=== PATIENT | male | born 1965 | race African-American/Black ===

== ENCOUNTER 2023-09-10 15:55 | Inpatient (IN) | payer MEDICARE ==
[2023-09-10] MEDS: NALOXONE 0.4 MG/ML 1 ML VIAL IVP STA (15:58)
[2023-09-10] MEDS: MIDAZOLAM 1 MG/ML 5 ML VIAL IV STA (16:01)
[2023-09-10] MEDS: SUCCINYLCHOLINE CHLORIDE 200 MG/10 ML VIAL IV STA (16:02)
[2023-09-10] MEDS: SODIUM CHLORIDE 0.9% 500 ML 500 ML IV STA (16:03)
[2023-09-10 16:12] LABS: Glucose,Whole Blood 297 mg/dL (70-110)
[2023-09-10] MEDS: LORazepam 2 MG/ML INJ IV STA ×3 (16:13→18:43)
--- NOTE | 2023-09-10 16:17 | ED ---
General Adult HPI - General Stated complaint: Cardiac Arrest Time Seen by Provider: 09/10/23 15:55 Source: patient, RN notes reviewed, old records reviewed - History of Present Illness Initial comments: This is a 58-year-old male who presents to the emergency department after having had a seizure [place] the court [place] he fell directly back and hit the back of his head at which point in time he was unconscious according to bystanders he had some blood coming out of his nose. Patient never regained consciousness when the fire department arrived he was having agonal respirations when EMS got there he was in asystole and they started CPR which lasted about 3 minutes and the patient regained a pulse and was again breathing agonal he they were bagging the patient on the way in but they did not intubate the patient. Patient was not giving any medication. - Related Data Home Medications Medication Instructions Recorded Confirmed Losartan/Hydrochlorothiazide 1 tab PO DAILY 09/10/23 09/10/23 [Losartan-Hctz 100-25 mg Tab] Lovastatin [Mevacor] 20 mg PO W/SUPPER 09/10/23 09/10/23 Pioglitazone [Actos] 15 mg PO DAILY 09/10/23 09/10/23 amLODIPine [Norvasc] 5 mg PO DAILY 09/10/23 09/10/23 metFORMIN HCL 1,000 mg PO BID 09/10/23 09/10/23 Allergies Allergy/AdvReac Type Severity Reaction Status Date / Time Penicillins Allergy Unknown Verified 09/10/23 17:21 Review of Systems ROS Statement: Those systems with pertinent positive or pertinent negative responses have been documented in the HPI. ROS Other: All systems not noted in ROS Statement are negative. General Exam - General Exam Comments Initial Comments: GENERAL: Patient is well-developed and well-nourished. Patient is unresponsive ENT: Neck is soft and supple. Oropharynx is clear. Moist mucous membranes. EYES: The sclera were anicteric and conjunctiva were pink and moist. Pupils are pinpoint. Patient is not spontaneously looking around PULMONARY: Patient has good breath sounds while being bagged CARDIOVASCULAR: There is a regular rate and rhythm without any murmurs gallops or rubs. ABDOMEN: No trauma obvious to the abdomen SKIN: Skin is clear with no lesions or rashes and otherwise unremarkable. NEUROLOGIC: Patient has a GCS of 3 MUSCULOSKELETAL: Patient is not moving any extremities spontaneously PSYCHIATRIC: Unable Course Vital Signs 09/10/23 09/10/23 09/10/23 15:58 16:05 16:20 Temperature 97.0 F L Pulse Rate [ 111 H Field Naturalist ] Respiratory 0 L 21 Rate Blood Pressure 184/108 [Right Arm Supine] O2 Sat by Pulse 88 L Oximetry Fraction of 100 Inspired Oxygen (FIO2) 09/10/23 09/10/23 16:40 17:15 Temperature Pulse Rate [ 104 H Field Naturalist ] Respiratory 26 H Rate Blood Pressure 147/81 [Right Arm Supine] O2 Sat by Pulse 98 Oximetry Fraction of 100 Inspired Oxygen (FIO2) Medical Decision Making - Medical Decision Making EKG is interpreted by myself but EKG shows sinus tachycardia at a rate of 100 bpm IA interval is 186 QRS 120 QT interval is 408 QTc is [address] segment elevation Was pt. sent in by a medical professional or institution ([facility], [facility], urgent care, hospital, or correction...) When possible be specific @ -No Did you speak to anyone other than the patient for history (EMS, parent, family, police, friend...)? What history was obtained from this source @ -EMS gave all of the history Did you review nursing and triage notes (agree or disagree)? Why? @ -I reviewed and agree with nursing and triage notes Were old charts reviewed (outside hosp., previous admission, EMS record, old EKG, old radiological studies, urgent care reports/EKG's, correction records)? Report findings @ -I reviewed prior charts and prior lab work and prior radiological studies on this patient Differential Diagnosis (chest pain, altered mental status, abdominal pain women, abdominal pain men, vaginal bleeding, weakness, fever, dyspnea, syncope, headache, dizziness, GI bleed, back pain, seizure, CVA, palpatations, mental health, musculoskeletal)? @ -Differential Seizure: Recurrent seizure disorder, febrile seizure, alcohol withdrawal, stimulants, meningitis, encephalitis, intercranial hemorrhage, intracranial tumor, stroke, eclampsia, thyrotoxicosis, hypocalcemia, hyponatremia, hypernatremia, hypomagnesemia, psychogenic, this is not meant to be an all-inclusive list. EKG interpreted by me (3pts min.). @ -As above X-rays interpreted by me (1pt min.). @ -Chest x-ray and pelvic x-ray showed no acute abnormality CT interpreted by me (1pt min.). 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 Patient had no acute injury. CT cervical spine showed no acute injury U/S interpreted by me (1pt. min.). @ -None done What testing was considered but not performed or refused? (CT, X-rays, U/S, labs)? Why? @ -None What meds were considered but not given or refused? Why? @ -None Did you discuss the management of the patient with other professionals (professionals i.e. DrStephanie, PA, HE[employer] [facility]MER, lab, RT, psych nurse, forensic social worker, associate director regulatory affairs, teacher, court security officer, caseworker)? Give summary @ -Dr. Jacinto came down and saw the patient in the emergency department and cleared the patient from a trauma perspective as long as the CT of the brain and C-spine were negative. I did consult Dary Samaniego he refused the patient as a trauma because it was no significant external trauma and there was no trauma seen on the CAT scan or C-spine. I called back Dr. Jacinto at this point and he agreed that the patient was not a trauma patient and he would sign off on the patient. I spoke with Dr. Rivera he was going to except the patient to the ICU. I spoke with Dr. Fairchild and he agreed admit the patient. I spoke with Dr. Farris the neurologist and he agreed to see the patient. Was smoking cessation discussed for >3mins.? @ -No Was critical care preformed (if so, how long)? @ -60 minutes Were there social determinants of health that impacted care today? How? (Homelessness, low income, unemployed, alcoholism, drug addiction, transportation, low edu. Level, literacy, decrease access to med. care, prison, rehab)? @ -No Was there de-escalation of care discussed even if they declined (Discuss DNR or withdrawal of care, Hospice)? DNR status @ -No What co-morbidities impacted this encounter? (DM, HTN, Smoking, COPD, CAD, Cancer, CVA, ARF, Chemo, Hep., AIDS, mental health diagnosis, sleep apnea, morbid obesity)? @ -None Was patient admitted / discharged? Hospital course, mention meds given and route, prescriptions, significant lab abnormalities, going to OR and other pertinent info. @ -Patient came in he had a GCS of 3 he had good pulses he was only having agonal respirations and needed respiratory assistance with bagging. At that point in time anesthesia did intubate the patient. Patient had a CAT scan which was discussed above. Patient was then placed on propofol because he was fighting the vent a little bit. Patient also was given a total of 4 mg prior to that because of agitation. Patient also was given 1500 of Keppra. Undiagnosed new problem with uncertain prognosis? @ -No Drug Therapy requiring intensive monitoring for toxicity (Heparin, Nitro, Insulin, Cardizem)? @ -No Were any procedures done? @ -No Diagnosis/symptom? @ -Seizure Acute, or Chronic, or Acute on Chronic? @ -Acute Uncomplicated (without systemic symptoms) or Complicated (systemic symptoms)? @ -Complicated Side effects of treatment? @ -No Exacerbation, Progression, or Severe Exacerbation? @ -No Poses a threat to life or bodily function? How? (Chest pain, [place], [place], pneumonia, PE, COPD, DKA, ARF, appy, cholecystitis, CVA, Diverticulitis, Homicidal, Suicidal, threat to staff... and all critical care pts) @ -Yes this could lead to further neurologic deficit Diagnosis/symptom? @ -Cardiac arrest Acute, or Chronic, or Acute on Chronic? @ -Acute Uncomplicated (without systemic symptoms) or Complicated (systemic symptoms)? @ -Complicated Side effects of treatment? @ -None Exacerbation, Progression, or Severe Exacerbation] @ -No Poses a threat to life or bodily function? @ -Yes this could lead to significant heart damage and endorgan dysfunction Diagnosis/symptom? @ -Head injury Acute, or Chronic, or Acute on Chronic? @ -Acute Uncomplicated (without systemic symptoms) or Complicated (systemic symptoms)? @ -Complicated Side effects of treatment? @ -None Exacerbation, Progression, or Severe Exacerbation] @ -No Poses a threat to life or bodily function? @ -No - Lab Data Result diagrams: 09/10/23 16:03 09/10/23 16:03 Lab Results 09/10/23 09/10/23 09/10/23 Range/Units 16:03 16:03 16:03 WBC 16.8 H (3.8-10.6) k/uL RBC 6.27 H (4.30-5.90) m/uL Hgb 15.9 (13.0-17.5) gm/dL Hct 50.3 (39.0-53.0) % MCV 80.2 (80.0-100.0) fL MCH 25.5 (25.0-35.0) pg MCHC 31.7 (31.0-37.0) g/dL RDW 14.5 (11.5-15.5) % Plt Count 454 H (150-450) k/uL MPV 7.2 Neutrophils % [employer] Neutrophils % (Manual) 27 % Lymphocytes % [employer]MER Lymphocytes % (Manual) 64 % Monocytes % HE[employer]MER Monocytes % (Manual) 9 % Eosinophils % HE[employer]UMMER Basophils % HEEL GUMMER Neutrophils # HEEL GUMMER Neutrophils # (Manual) 4.54 (1.3-7.7) k/uL Lymphocytes # HEEL GUMMER Lymphocytes # (Manual) 10.75 H (1.0-4.8) k/uL Monocytes # HE[employer]UMMER Monocytes # (Manual) 1.51 H (0-1.0) k/uL Eosinophils # HE[employer]MER Basophils # [employer] Nucleated RBCs 0 (0-0) /100 WBC Manual Slide Review Performed Hypochromasia Slight PT 10.3 (10.0-12.5) sec INR 0.9 (<1.2) APTT 24.6 (22.0-30.0) sec Sodium 140 (137-145) mmol/L Potassium 4.3 (3.5-5.1) mmol/L Chloride 103 (98-107) mmol/L Carbon Dioxide 21 L (22-30) mmol/L Anion Gap 16 mmol/L BUN 15 (9-20) mg/dL Creatinine 1.07 (0.66-1.25) mg/dL Est GFR (CKD-EPI)AfAm 89 (>60 ml/min/1.73 sqM) Est GFR (CKD-EPI)NonAf 77 (>60 ml/min/1.73 sqM) Glucose 325 H (74-99) mg/dL POC Glucose (mg/dL) (70-110) mg/dL POC Glu [employer]s Analyst ID Plasma Lactic Acid Case (0.7-2.0) mmol/L Calcium 9.5 (8.4-10.2) mg/dL Total Bilirubin 0.9 (0.2-1.3) mg/dL AST 580 H (17-59) U/L ALT 589 H (4-49) U/L Alkaline Phosphatase 94 (38-126) U/L Troponin I (0.000-0.034) ng/mL Total Protein 8.5 H (6.3-8.2) g/dL Albumin 5.0 (3.5-5.0) g/dL Urine Opiates Screen (NotDetected) Ur Oxycodone Screen (NotDetected) Urine Methadone Screen (NotDetected) Ur Barbiturates Screen (NotDetected) U Tricyclic Antidepress (NotDetected) Ur Phencyclidine Scrn (NotDetected) Ur Amphetamines Screen (NotDetected) U Methamphetamines Scrn (NotDetected) U Benzodiazepines Scrn (NotDetected) Urine Cocaine Screen (NotDetected) U Marijuana (THC) Screen (NotDetected) Serum Alcohol <10 mg/dL Blood Type Blood Type Recheck Bld Type Recheck Status Antibody Screen Spec Expiration Date 09/10/23 09/10/23 09/10/23 Range/Units 16:03 16:03 16:03 WBC (3.8-10.6) k/uL RBC (4.30-5.90) m/uL Hgb (13.0-17.5) gm/dL Hct (39.0-53.0) % MCV (80.0-100.0) fL MCH (25.0-35.0) pg MCHC (31.0-37.0) g/dL RDW (11.5-15.5) % Plt Count (150-450) k/uL MPV Neutrophils % Neutrophils % (Manual) % Lymphocytes % Lymphocytes % (Manual) % Monocytes % Monocytes % (Manual) % Eosinophils % Basophils % Neutrophils # Neutrophils # (Manual) (1.3-7.7) k/uL Lymphocytes # Lymphocytes # (Manual) (1.0-4.8) k/uL Monocytes # Monocytes # (Manual) (0-1.0) k/uL Eosinophils # Basophils # Nucleated RBCs (0-0) /100 WBC Manual Slide Review Hypochromasia PT (10.0-12.5) sec INR (<1.2) APTT (22.0-30.0) sec Sodium (137-145) mmol/L Potassium (3.5-5.1) mmol/L Chloride (98-107) mmol/L Carbon Dioxide (22-30) mmol/L Anion Gap mmol/L BUN (9-20) mg/dL Creatinine (0.66-1.25) mg/dL Est GFR (CKD-EPI)AfAm (>60 ml/min/1.73 sqM) Est GFR (CKD-EPI)NonAf (>60 ml/min/1.73 sqM) Glucose (74-99) mg/dL POC Glucose (mg/dL) (70-110) mg/dL POC Glu Sales Contracts Analyst ID Plasma Lactic Acid Case 6.1 H* (0.7-2.0) mmol/L Calcium (8.4-10.2) mg/dL Total Bilirubin (0.2-1.3) mg/dL AST (17-59) U/L ALT (4-49) U/L Alkaline Phosphatase (38-126) U/L Troponin I 0.024 (0.000-0.034) ng/mL Total Protein (6.3-8.2) g/dL Albumin (3.5-5.0) g/dL Urine Opiates Screen (NotDetected) Ur Oxycodone Screen (NotDetected) Urine Methadone Screen (NotDetected) Ur Barbiturates Screen (NotDetected) U Tricyclic Antidepress (NotDetected) Ur Phencyclidine Scrn (NotDetected) Ur Amphetamines Screen (NotDetected) U Methamphetamines Scrn (NotDetected) U Benzodiazepines Scrn (NotDetected) Urine Cocaine Screen (NotDetected) U Marijuana (THC) Screen (NotDetected) Serum Alcohol mg/dL Blood Type O Positive Blood Type Recheck No Previous Record Bld Type Recheck Status CABO Indicated Antibody Screen NEGATIVE Spec Expiration Date 09/13/2023 - 230209/10/23 09/10/23 Range/Units 16:09 16:11 WBC (3.8-10.6) k/uL RBC (4.30-5.90) m/uL Hgb (13.0-17.5) gm/dL Hct (39.0-53.0) % MCV (80.0-100.0) fL MCH (25.0-35.0) pg MCHC (31.0-37.0) g/dL RDW (11.5-15.5) % Plt Count (150-450) k/uL MPV Neutrophils % Neutrophils % (Manual) % Lymphocytes % Lymphocytes % (Manual) % Monocytes % Monocytes % (Manual) % Eosinophils % Basophils % Neutrophils # Neutrophils # (Manual) (1.3-7.7) k/uL Lymphocytes # Lymphocytes # (Manual) (1.0-4.8) k/uL Monocytes # Monocytes # (Manual) (0-1.0) k/uL Eosinophils # Basophils # Nucleated RBCs (0-0) /100 WBC Manual Slide Review Hypochromasia PT (10.0-12.5) sec INR (<1.2) APTT (22.0-30.0) sec Sodium (137-145) mmol/L Potassium (3.5-5.1) mmol/L Chloride (98-107) mmol/L Carbon Dioxide (22-30) mmol/L Anion Gap mmol/L BUN (9-20) mg/dL Creatinine (0.66-1.25) mg/dL Est GFR (CKD-EPI)AfAm (>60 ml/min/1.73 sqM) Est GFR (CKD-EPI)NonAf (>60 ml/min/1.73 sqM) Glucose (74-99) mg/dL POC Glucose (mg/dL) 297 H (70-110) mg/dL POC Glu Sales Contracts Analyst ID [place], Unique Plasma Lactic Acid Case (0.7-2.0) mmol/L Calcium (8.4-10.2) mg/dL Total Bilirubin (0.2-1.3) mg/dL AST (17-59) U/L ALT (4-49) U/L Alkaline Phosphatase (38-126) U/L Troponin I (0.000-0.034) ng/mL Total Protein (6.3-8.2) g/dL Albumin (3.5-5.0) g/dL Urine Opiates Screen Not Detected (NotDetected) Ur Oxycodone Screen Not Detected (NotDetected) Urine Methadone Screen Not Detected (NotDetected) Ur Barbiturates Screen Not Detected (NotDetected) U Tricyclic Antidepress Not Detected (NotDetected) Ur Phencyclidine Scrn Not Detected (NotDetected) Ur Amphetamines Screen Not Detected (NotDetected) U Methamphetamines Scrn Not Detected (NotDetected) U Benzodiazepines Scrn Not Detected (NotDetected) Urine Cocaine Screen Not Detected (NotDetected) U Marijuana (THC) Screen Detected H (NotDetected) Serum Alcohol mg/dL Blood Type Blood Type Recheck Bld Type Recheck Status Antibody Screen Spec Expiration Date Critical Care Time Critical Care Time: Yes Total Critical Care Time: 60 Disposition Clinical Impression: Seizure, Head injury, Cardiac arrest Disposition: ADMITTED IP TO THIS HOSP Referrals: Cale Fairchild MD [Primary Care Provider] - 1-2 days Time of Disposition: 17:45
[2023-09-10] MEDS: PROPOFOL 10 MG/ML 20 ML VIAL IV STA (16:18)
--- NOTE | 2023-09-10 16:24 | XR ---
EXAMINATION TYPE: XR chest 1V portable DATE OF EXAM: 09/10/2023 HISTORY: Shortness of breath. COMPARISON: None. TECHNIQUE: Single view of the chest is submitted. FINDINGS: Endotracheal tube is 3.1 cm from the mandy. NG tube is seen coursing into the stomach. Focal infiltrate left upper lobe. The heart is stable. Hilar and mediastinal structures are within normal limits. Degenerative changes are seen of the dorsal spine. IMPRESSION: 1. Indwelling tubes and catheters as noted. 2. Focal infiltrate left upper lobe.
--- NOTE | 2023-09-10 16:25 | XR ---
EXAMINATION TYPE: XR pelvis AP view DATE OF EXAM: 09/10/2023 CLINICAL HISTORY: pain TECHNIQUE: Single view the pelvis is submitted. FINDINGS: No evidence for fracture, dislocation or bony lesion. Joint spaces are well-preserved. S I joints appear symmetric. IMPRESSION: 1. No acute fracture or dislocation seen. ICD 10 NO FRACTURE, INITIAL EVALUATION
[2023-09-10 16:27] LABS: HCT 50.3 % (39.0-53.0); HGB 15.9 gm/dL (13.0-17.5); Hypochromasia Slight; MCH 25.5 pg (25.0-35.0); MCHC 31.7 g/dL (31.0-37.0); MCV 80.2 fL (80.0-100.0); Mean Platelet Volume 7.2; Platelet Count 454 k/uL (150-450); RBC 6.27 m/uL (4.30-5.90); RDW 14.5 % (11.5-15.5); WBC 16.8 k/uL (3.8-10.6)
[2023-09-10 16:35] LABS: ALT 589 U/L (4-49); African American GFR (CKD) 89 (>60 ml/min/1.73 sqM); Alcohol <10 mg/dL; Anion Gap 16 mmol/L; Blood Urea Nitrogen 15 mg/dL (9-20); Calcium 9.5 mg/dL (8.4-10.2); Carbon Dioxide 21 mmol/L (22-30); Chloride 103 mmol/L (98-107); Glucose 325 mg/dL (74-99); Non-African American GFR(CKD) 77 (>60 ml/min/1.73 sqM); Sodium 140 mmol/L (137-145); Total Bilirubin 0.9 mg/dL (0.2-1.3)
[2023-09-10 16:37] LABS: INR 0.9 (<1.2); Partial Thromboplastin Time 24.6 sec (22.0-30.0); Prothrombin Time 10.3 sec (10.0-12.5)
[2023-09-10 16:40] LABS: Amphetamine Screen,Urine Not Detected (NotDetected); Barbiturate Screen,Urine Not Detected (NotDetected); Benzodiazepines Screen,Urine Not Detected (NotDetected); Cocaine Screen,Urine Not Detected (NotDetected); Methadone Screen, Urine Not Detected (NotDetected); Opiate Screen,Urine Not Detected (NotDetected); Oxycodone Screen, Urine Not Detected (NotDetected); Phencyclidine Screen,Urine Not Detected (NotDetected); Tricyclic Antidepressant,Urine Not Detected (NotDetected); Urn Cannabinoid Scrn Detected (NotDetected)
[2023-09-10 16:48] LABS: Lymphocytes # (M) 10.75 k/uL (1.0-4.8); Monocytes # (M) 1.51 k/uL (0-1.0); Neutrophils # (M) 4.54 k/uL (1.3-7.7); Neutrophils % (M) 27 %; Nucleated Red Blood Cells 0 /100 WBC (0-0); Potassium 4.3 mmol/L (3.5-5.1); Total Cells Counted 100
[2023-09-10 16:49] LABS: AST 580 U/L (17-59); Alkaline Phosphatase 94 U/L (38-126); Total Protein 8.5 g/dL (6.3-8.2)
--- NOTE | 2023-09-10 16:52 | CT ---
EXAMINATION TYPE: CT brain cspine wo con CT DLP: 1753.2 mGycm, Automated exposure control for dose reduction was used. DATE OF EXAM: 09/10/2023 4:40 PM COMPARISON: None CLINICAL INDICATION:Male, 58 years old with history of trauma; Pt had a seizure and then went unconsc ious. TECHNIQUE: Brain: Multiple axial CT images of the brain were obtained without IV contrast. Cspine: Axial CT images from the skull base to the inferior aspect of T2 we obtained without intraven ous contrast. Coronal and sagittal reformatted images were also reviewed. FINDINGS: Brain: Extra-axial spaces: No abnormal extra-axial fluid collections. Falx lipoma anteriorly. Ventricular system: Within normal limits Cerebral parenchyma: Encephalomalacia the right frontal lobe. No acute intraparenchymal hemorrhage or mass effect. The warren-white junction is well differentiated. Metallic clip near the suprasellar spa ce Cerebellum: Unremarkable. Mass effect: No evidence of midline shift. Intracranial vasculature: unremarkable Soft tissues: Calcifications are seen within the floor the mouth measuring up to 26 x 13 mm. Subcutan eous changes edema along the superior skull. Calvarium/osseous structures: No depressed skull fracture. Paranasal sinuses and mastoid air cells: Paranasal sinus mucosal thickening within the nasal cavity. Visualized orbits: Orbital contents are intact. Cervical spine: Fracture: None. Osseous structures: Multilevel degenerative disc disease changes with endplate spurring and disc oste ophyte complex's. Vertebral alignment: Within normal limits. Spinal canal/Neural Foramina: No evidence of significant spinal canal narrowing. No evidence for sign ificant neural foraminal stenosis. Neck soft tissues: Prevertebral soft tissues are within normal limits. Other: The airway is patent. Airspace opacities in the lung apices are present. Endotracheal tube and nasogastric tube partially visualized. IMPRESSION: 1. No acute intracranial process. 2. Subcutaneous edema near the skull vertex without evidence of fracture. 3. Encephalomalacia the right frontal lobe possibly secondary to surgical intervention given metalli c density in the suprasellar space. 4. No evidence of cervical spine fracture. 5. Mild multilevel degenerative disc disease. 6. Multiple right calcified stones within the floor the mouth compatible with sialolithiasis. 7. Bilateral airspace opacities partially visualized in the upper lung, correlate for pneumonia/ asp iration versus pulmonary edema versus other. 8. Endotracheal nasogastric tubes in place.
[2023-09-10] MEDS: levETIRAcetam IV 500 MG/5 ML VIAL IVP STA (17:05)
[2023-09-10 17:29] LABS: ABG Base Excess -0.8 mmol/L; ABG HCO3 25 mmol/L (21-25); ABG Oxygen Saturation 93.9 % (94-97); ABG PCO2 45 mmHg (35-45); ABG PH 7.35 (7.35-7.45); ABG PO2 79 mmHg (83-108); ABG TCO2 26 mmol/L (19-24); Allen Test Performed? Yes
[2023-09-10] MEDS ORDERED: NALOXONE 0.4 MG/ML 1 ML VIAL IV PRN (17:45)
[2023-09-10] MEDS: FUROSEMIDE 10 MG/ML 4 ML VIAL IV STA (18:45)
--- NOTE | 2023-09-10 19:04 | XR ---
EXAMINATION TYPE: XR chest 1V portable DATE OF EXAM: 09/10/2023 6:50 PM CLINICAL INDICATION:Male, 58 years old with history of Short of breath; [facility] COMPARISON: Same day TECHNIQUE: XR chest 1V portable Frontal view of the chest. FINDINGS: Lungs/Pleura: Improved aeration of lungs on today's exam with persistent airspace opacities scattered throughout the left upper lung. No evidence of pneumothorax or large pleural effusion. Pulmonary vascularity: Unremarkable. Heart/mediastinum: Cardiomediastinal silhouette is enlarged and stable. Musculoskeletal: No acute osseous pathology. Other findings: None Lines/Tubes: Endotracheal tube with distal tip 5.4 cm above the mandy. Nasogastric tube with its distal tip and side-port projecting under the diaphragm. Left internal jugular central venous catheter with distal tip at the cavoatrial junction. IMPRESSION: 1. Improved aeration of the right medial upper lung and left upper lung. 2. Support tubes and left line in appropriate position.
[2023-09-10] MEDS: LORazepam 2 MG/ML INJ IM STA (19:07)
[2023-09-10 20:31] LABS: Glucose,Whole Blood 255 mg/dL (70-110)
--- NOTE | 2023-09-10 20:45 | P.CNPUL ---
History of Present Illness Consult date: 09/10/23 Chief complaint: Seizure, cardiac arrest History of present illness: This is a 58-year-old male patient was brought in to the emergency department following a cardiac arrest. The patient was in the court house and he was noted to have an acute seizure, tonic-clonic in nature that lasted for around 2 to 3 minutes, during which, the patient had stool and urinary incontinence. The patient dropped and hit the back of his head and went unconscious. Subsequently, he was found unconscious and the fire department arrived to the scene and the patient was having agonal breathing and apparently was in asystole. The patient was given CPR for total of 3 minutes and he regained spontaneous circulation. His breathing was still agonal and he was being bagged on the way to the emergency department. In the ED, the patient was intubated immediately. The patient was placed on a mechanical ventilator. The postintubation chest x-ray showed right upper lobe atelectatic changes and ET tube was repositioned. The patient also had cardiomegaly and increased pulm vascular markings bilaterally. CAT scan of the head was done in addition to the CT scan of the cervical spine. The patient was found to have no acute intracranial process. There was some subcutaneous edema near the skull vertex without evidence of any fracture. There was encephalomalacia involving the frontal lobe related to previous surgery given the metallic density that was found in the suprasellar space. Patient had no evidence of any cervical fracture. No evidence of any hemorrhage or mass effect on the warren-white junction was well-differentiated. A metallic clip was seen as mentioned. The upper part of the lung showed bilateral airspace disease consistent with p ulmonary edema. I arrived to evaluate this patient in the emergency department. He was placed on propofol and is running at 55 mcg of volume psych: Mechanical ventilation. He was having abdominal bleeding and he was quite tachypneic. I switched him to pressure control mode and currently is on a pressure control of 25 with a PEEP of 5 and FiO2 of 100% in the rate of 20. Triple-lumen catheter was established in his left IJ. The post line insertion chest x-ray shows no evidence of any complications. No evidence of any pneumothorax. The patient remained hemodynamically stable. No further seizure activity has been noted. He was given IV Keppra in the emergency department and a total of 1.5 g of IV Keppra piggyback was given. No fever. No neck stiffness. WBC count is 16.8 with a hemoglobin of 15.9 and a platelet count of 454. BUN is at 15 with a creatinine of 1.07. Electrolytes are normal. Blood sugars at 325. As for the rest of the labs, the urine drug screen is positive for marijuana, negative for alcohol. Lactic acid level was at 6.1. AST is 580, ALT is 589 with a normal bilirubin and normal alkaline phosphatase. For set of troponin is at 0.024. He was given a dose of Lasix in the emergency department. 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 No reported seizure activity at least recently and the patient has been taking no antiepileptic medication. The patient has hypertension hyperlipidemia and diabetes mellitus maintained on oral medications. No further history is available at this point in time. No history of any cardiac disease. 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, aneurysm Medications and Allergies Home Medications Medication Instructions Recorded Confirmed Type Losartan/Hydrochlorothiazide 1 tab PO DAILY 09/10/23 09/10/23 History [Losartan-Hctz 100-25 mg Tab] Lovastatin [Mevacor] 20 mg PO W/SUPPER 09/10/23 09/10/23 History Pioglitazone [Actos] 15 mg PO DAILY 09/10/23 09/10/23 History amLODIPine [Norvasc] 5 mg PO DAILY 09/10/23 09/10/23 History metFORMIN HCL 1,000 mg PO BID 09/10/23 09/10/23 History Allergies Allergy/AdvReac Type Severity Reaction Status Date / Time No Known Allergies Allergy Verified 09/10/23 17:47 Physical Exam Vitals: Vital Signs Temp Pulse Pulse Resp BP BP Pulse Ox 09/10/23 19:37 09/10/23 19:00 100 22 128/72 100 09/10/23 18:37 09/10/23 18:30 97.7 F 115 H 24 157/110 100 09/10/23 18:00 97.7 F 116 H 33 H 177/83 100 09/10/23 17:45 97.7 F 117 H 30 H 167/82 99 09/10/23 17:30 97.7 F 106 H 26 H 148/89 96 09/10/23 17:15 97.6 F 104 H 104 H 22 147/81 147/81 98 09/10/23 17:00 97.4 F L 101 H 28 H 139/96 96 09/10/23 16:45 97.2 F L 102 H 22 111/73 93 L 09/10/23 16:40 09/10/23 16:30 97.1 F L 109 H 17 128/81 88 L 09/10/23 16:20 97.0 F L 111 H 21 184/108 88 L 09/10/23 16:15 97.0 F L 111 H 18 184/108 88 L 09/10/23 16:09 97.0 F L 122 H 17 209/126 83 L 09/10/23 16:05 09/10/23 15:58 0 L 09/10/23 15:55 97.0 F L 129 H 11 L 243/165 88 L FiO2 09/10/23 19:37 100 09/10/23 19:00 09/10/23 18:37 100 09/10/23 18:30 09/10/23 18:00 09/10/23 17:45 09/10/23 17:30 09/10/23 17:15 09/10/23 17:00 09/10/23 16:45 09/10/23 16:40 100 09/10/23 16:30 09/10/23 16:20 09/10/23 16:15 09/10/23 16:09 09/10/23 16:05 100 09/10/23 15:58 09/10/23 15:55 Intake and Output 09/10/23 09/10/23 09/10/23 06:59 14:59 22:59 Intake Total 65.986 Balance 65.986 Intake: Intake, IV Titration 65.986 Amount propofoL 1,000 mg In 65.986 Empty Bag 1 bag @ 15 MCG/ KG/MIN 9.594 mls/hr IV . [id number] [facility] Rx#:[id number] Other: Weight 106.594 kg General appearance the patient is calm comfortable, no acute distress Intubated on mechanical ventilator. Orogastric and orotracheal tube is in place. No obvious seizure activity noted. Head exam was generally normal. There was no scleral icterus or corneal arcus. Mucous membranes were moist. Neck was supple and without jugular venous distension, thyromegaly, or carotid bruits. Carotids were easily palpable bilaterally. There was no adenopathy. Lungs were clear to auscultation and percussion, and with normal diaphragmatic excursion. No wheezes or rales were noted. Cardiac exam revealed the PMI to be normally situated and sized. The rhythm was regular and no extrasystoles were noted during several minutes of auscultation. The first and second heart sounds were normal and physiologic splitting of the second heart sound was noted. There were no murmurs, rubs, clicks, or gallops. Abdominal exam revealed normal bowel sounds. The abdomen was soft, non-tender, and without masses, organomegaly, or appreciable enlargement of the abdominal aorta. Examination of the extremities revealed easily palpable radial, femoral and pedal pulses. There was no cyanosis, clubbing or edema. Examination of the skin revealed no evidence of significant rashes, suspicious appearing nevi or other concerning lesions. Neurologically, the patient is sedated, pupils are equal reactive to light around 3 mm in size. No nystagmus. No facial asymmetry. Positive cough and gag. Sensorimotor function cannot be assessed. No Babinski. No clonus. Results - Laboratory Findings CBC and BMP: 09/10/23 16:09/10/23 16:03 ABG ABG pH 7.35 (7.35-7.45) 09/10/23 17:26 ABG pCO2 45 mmHg (35-45) 09/10/23 17:26 ABG pO2 79 mmHg (83-108) L 09/10/23 17:26 ABG O2 Saturation 93.9 % (94-97) L 09/10/23 17:26 PT/INR, D-dimer PT 10.3 sec (10.0-12.5) 09/10/23 16:03 INR 0.9 (<1.2) 09/10/23 16:03 Abnormal lab findings: Abnormal Labs 09/10/23 09/10/23 09/10/23 16:03 16:03 16:03 WBC 16.8 H RBC 6.27 H Plt Count 454 H Lymphocytes # (Manual) 10.75 H Monocytes # (Manual) 1.51 H ABG pO2 ABG Total CO2 ABG O2 Saturation Carbon Dioxide 21 L Glucose 325 H POC Glucose (mg/dL) Plasma Lactic Acid Case 6.1 H* AST 580 H ALT 589 H Total Protein 8.5 H U Marijuana (THC) Screen 09/10/23 09/10/23 09/10/23 16:09 16:11 17:26 WBC RBC Plt Count Lymphocytes # (Manual) Monocytes # (Manual) ABG pO2 79 L ABG Total CO2 26 H ABG O2 Saturation 93.9 L Carbon Dioxide Glucose POC Glucose (mg/dL) 297 H Plasma Lactic Acid Case AST ALT Total Protein U Marijuana (THC) Screen Detected H - Diagnostic Findings Chest x-ray: image reviewed Assessment and Plan Plan: New onset seizures, witnessed, lasted for few minutes and the seizure spontaneously aborted. The patient started on IV Keppra in the emergency department. 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 Obesity with a BMI of 32 Diabetes mellitus type 2 Hypertension Hyperlipidemia Plan Keep the patient sedated on propofol Continue IV Keppra Ativan on as-needed basis for agitation and or seizure activity EEG of the brain in the morning No ongoing clinical seizure activity Neurology consultation Continue ventilator support and keep the patient on pressure control mode of mechanical ventilation Wean FiO2 as tolerated to maintain saturation above 90% IV Lasix 40 mg every 24 hours Echocardiogram in the morning Precedex drip for tighter blood pressure control NovoLog insulin for sliding scale coverage and blood sugar control Heparin subcu for DVT prophylaxis Will continue to follow. Condition is critical. Will try to obtain more information from the family members once they arrived to the hospital. Time with Patient: Greater than 30
[2023-09-10] MEDS ORDERED: DEXTROSE 50% SYRINGE 50 ML IVP PRN ×2 (20:51)
[2023-09-10] MEDS: CLEVIDIPINE BUTYRATE 25 MG in EMPTY BAG 1 BAG IV SCH (21:00)
--- NOTE | 2023-09-10 21:02 | P.PCN ---
Date of Procedure: 09/10/23 Preoperative Diagnosis: Cardiac arrest Postoperative Diagnosis: cardiac arrest Procedure(s) Performed: central line, left IJ Anesthesia: local Surgeon: Magaly Rivera Estimated Blood Loss (ml): 0 Pathology: other Condition: critical Disposition: ICU Operative Findings: PROCEDURE SUMMARY: The [facility] [place] Central Line Insertion Practices form was completed by an independent observer starting with the first handwash prior to starting sterile technique. A time out was performed. My hands were washed immediately prior to the procedure. I wore a surgical cap, mask with protective eyewear, full gown and sterile gloves throughout the procedure. The patient was placed in Trendelen dar position. LEFT neck chest region was prepped using chlorhexidine scrub and draped in sterile fashion using a full drape and sterile probe cover and sterile gel employed. The medial and lateral heads of the sternocleidomastoid muscle were identified as was the carotid pulse. . Anesthesia was achieved over the vein using 1% lidocaine. The introducer needle was inserted into the Internal Jugular vein. Venous blood was withdrawn. The syringe was removed and a guidewire was advanced into the introducer needle. A small incision was made at the skin surface with a scalpel and the introducer needle was exchanged for a dilator over the guidewire. After appropriate dilation was obtained, the dilator was exchanged over the wire for a central venous catheter. A sterile sorbaview shield was placed over the catheter at the insertion site. The patient tolerated the procedure without any hemodynamic compromise. At time of procedure completion, all ports aspirated and flushed properly. Post-procedure chest x-ray is pending at this time. Estimated blood loss is 2-3 cc's.
[2023-09-10] MEDS: PANTOPRAZOLE 40 MG/10 ML VIAL IVP SCH (21:14)
[2023-09-10] MEDS: levETIRAcetam IV 500 MG/5 ML VIAL IVP SCH (21:14)
[2023-09-11 00:01] LABS: Glucose,Whole Blood 296 mg/dL (70-110)
[2023-09-11] MEDS ORDERED: DEXTROSE 50% SYRINGE 50 ML IVP PRN (00:53)
[2023-09-11] MEDS: HEPARIN SODIUM,PORCINE 5,000 UNIT/ML 1 ML VIAL SQ SCH (00:53)
[2023-09-11] MEDS: INSULIN ASPART (NovoLOG) 100 UNIT/ML VIAL SQ SCH (01:34)
[2023-09-11 04:39] LABS: Basophils % (A) 0 %; Eosinophils # (A) 0.1 k/uL (0-0.7); Eosinophils % (A) 1 %; HCT 41.9 % (39.0-53.0); HGB 13.5 gm/dL (13.0-17.5); Lymphocytes # (A) 1.7 k/uL (1.0-4.8); Lymphocytes % (A) 15 %; MCH 24.7 pg (25.0-35.0); MCHC 32.1 g/dL (31.0-37.0); Mean Platelet Volume 8.5; Monocytes # (A) 0.5 k/uL (0-1.0); Monocytes % (A) 5 %; Neutrophils # (A) 9.1 k/uL (1.3-7.7); Neutrophils % (A) 79 %; Platelet Count 333 k/uL (150-450); RBC 5.45 m/uL (4.30-5.90); RDW 14.5 % (11.5-15.5); WBC 11.5 k/uL (3.8-10.6)
[2023-09-11 04:56] LABS: ALT 366 U/L (4-49); AST 294 U/L (17-59); African American GFR (CKD) 79 (>60 ml/min/1.73 sqM); Albumin 3.7 g/dL (3.5-5.0); Alkaline Phosphatase 87 U/L (38-126); Anion Gap 11 mmol/L; Blood Urea Nitrogen 18 mg/dL (9-20); Calcium 9.1 mg/dL (8.4-10.2); Carbon Dioxide 21 mmol/L (22-30); Chloride 105 mmol/L (98-107); Glucose 222 mg/dL (74-99); Non-African American GFR(CKD) 68 (>60 ml/min/1.73 sqM); Potassium 3.3 mmol/L (3.5-5.1); Sodium 137 mmol/L (137-145); Total Bilirubin 0.7 mg/dL (0.2-1.3); Total Protein 6.5 g/dL (6.3-8.2)
[2023-09-11 05:08] LABS: Glucose,Whole Blood 216 mg/dL (70-110)
[2023-09-11] MEDS: FUROSEMIDE 10 MG/ML 4 ML VIAL IV SCH (05:13)
[2023-09-11] MEDS ORDERED: Potassium Replacement Protocol 1 EACH MISC MISCELLANE PRN (05:20)
[2023-09-11] MEDS ORDERED: Magnesium Replacement Protocol 1 EACH MISC MISCELLANE PRN (05:20)
[2023-09-11] MEDS: MAGNESIUM SULFATE-D5W PMX 1 GM in DEXTROSE/WATER 1 100ML.BAG IVPB SCH (05:59)
[2023-09-11] MEDS: POTASSIUM CHLORIDE 20 MEQ in WATER FOR INJECTION 1 100ML.BAG IVPB SCH (05:59)
[2023-09-11 06:07] LABS: ABG Base Excess 3.4 mmol/L; ABG HCO3 25 mmol/L (21-25); ABG Oxygen Saturation 98.3 % (94-97); ABG PCO2 24 mmHg (35-45); ABG PO2 305 mmHg (83-108); ABG TCO2 25 mmol/L (19-24)
[2023-09-11 06:11] LABS: ABG PH 7.63 (7.35-7.45)
--- NOTE | 2023-09-11 07:35 | P.CNNES ---
History of Present Illness Consult date: 09/10/23 Requesting physician: Tyler Frank Reason for Consult: Seizure History of Present Illness: Patient is a 58-year-old male brought to the hospital by ambulance after patient had a fall, seizure. As per EMS flowsheet, when they arrived, patient was laying supine on the ground with shallow snoring respiration. Patient was noted to have had a seizure while standing and to have fallen backwards striking head on the ground. Patient was noted to have snoring respirations following the fall that had continually become slower and shallower. Cardiac monitoring showed asystole rhythm. CPR was initiated. C-collar was placed on patient secondary to fall and head injury. Shortly after IV was established, rhythm cam e back at 80 with carotid pulse confirmed. Patient's respiration were continually supported and patient's respiration increased and became deeper. It was reported in the EMS sheet that the seizure lasted for about 2 minutes. And the cardiac arrest was for 10 minutes. The rhythm that came back was reported as atrial fibrillation. Patient's blood pressure subsequently was 162/107, pulse rate 93 respiration 12, saturation 97% and blood sugar 172. Chest x-ray revealed focal infiltrate left upper lobe. Pelvic x-ray was normal. CT head revealed no acute intracranial process. Subcutaneous edema near the skull vertex without evidence of fracture. Encephalomalacia in the right frontal lobe possibly secondary to surgical intervention given metallic density in the suprasellar space. I personally reviewed CT head, agree with the findings. CT of the cervical spine showed no evidence of cervical spine fracture. Mild multilevel degenerative disc disease. Multiple right calcified stones within the floor of the mouth compatible with sialolithiasis. Bilateral air space opacities partially visualized in the upper lung, correlate for pneumonia/aspiration versus pulmonary edema versus other. EKG shows sinus tachycardia. Patient's daughter was present, who reported that patient was in the court house, as he is undergoing divorce and is under a lot of stress. She mentions that patient fell, first hitting his head on the front on the table and then fell backwards on the side. She mentions that patient has history of a seizure in 2004 and was diagnosed with a cerebral aneurysm. He was airlifted to [facility], where he underwent endovascular coiling. Patient was pl aced on seizure medication, which she maintained for a number of years. However when he stopped having seizures, he was taken off seizure medication. She is not very sure, but believes that maybe for 1 year he is off seizure medication. He lives with his son and patient's sister. She does not believe patient has any grand mal seizures since stopping medications, although he gets "dissociative form of seizure" sometimes. He does follow-up with Dr. Rincon. Patient smokes marijuana, does not smoke or drink alcohol. Patient's daughter reported that the downtime was 4-minute, although EMS flowsheet states "10 minutes". Patient is currently on propofol 50 mcg/kg/min. He is also on Cleviprex 2 mg per hour. Review of Systems Other review of systems as mentioned by patient's daughter and mentioned in HPI. Patient is under a lot of stress. 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 Medications and Allergies Home Medications Medication Instructions Recorded Confirmed Type Losartan/Hydrochlorothiazide 1 tab PO DAILY 09/10/23 09/10/23 History [Losartan-Hctz 100-25 mg Tab] Lovastatin [Mevacor] 20 mg PO W/SUPPER 09/10/23 09/10/23 History Pioglitazone [Actos] 15 mg PO DAILY 09/10/23 09/10/23 History amLODIPine [Norvasc] 5 mg PO DAILY 09/10/23 09/10/23 History metFORMIN HCL 1,000 mg PO BID 09/10/23 09/10/23 History Allergies Allergy/AdvReac Type Severity Reaction Status Date / Time No Known Allergies Allergy Verified 09/10/23 17:47 Physical Examination - Vital Signs Vital Signs: Vital Signs Temp Pulse Pulse Resp BP BP Pulse Ox 09/10/23 20:30 98.5 F 120 H 55 H 195/124 97 09/10/23 19:37 09/10/23 19:00 100 22 128/72 100 09/10/23 18:37 09/10/23 18:30 97.7 F 115 H 24 157/110 100 09/10/23 18:00 97.7 F 116 H 33 H 177/83 100 09/10/23 17:45 97.7 F 117 H 30 H 167/82 99 09/10/23 17:30 97.7 F 106 H 26 H 148/89 96 09/10/23 17:15 97.6 F 104 H 104 H 22 147/81 147/81 98 09/10/23 17:00 97.4 F L 101 H 28 H 139/96 96 09/10/23 16:45 97.2 F L 102 H 22 111/73 93 L 09/10/23 16:40 09/10/23 16:30 97.1 F L 109 H 17 128/81 88 L 09/10/23 16:20 97.0 F L 111 H 21 184/108 88 L 09/10/23 16:15 97.0 F L 111 H 18 184/108 88 L 09/10/23 16:09 97.0 F L 122 H 17 209/126 83 L 09/10/23 16:05 09/10/23 15:58 0 L 09/10/23 15:55 97.0 F L 129 H 11 L 243/165 88 L FiO2 09/10/23 20:30 100 09/10/23 19:37 100 09/10/23 19:00 09/10/23 18:37 100 09/10/23 18:30 09/10/23 18:00 09/10/23 17:45 09/10/23 17:30 09/10/23 17:15 09/10/23 17:00 09/10/23 16:45 09/10/23 16:40 100 09/10/23 16:30 09/10/23 16:20 09/10/23 16:15 09/10/23 16:09 09/10/23 16:05 100 09/10/23 15:58 09/10/23 15:55 Intake and Output 09/10/23 09/10/23 09/10/23 06:59 14:59 22:59 Intake Total 65.986 Balance 65.986 Intake: Intake, IV Titration 65.986 Amount propofoL 1,000 mg In 65.986 Empty Bag 1 bag @ 15 MCG/ KG/MIN 9.594 mls/hr IV . [id number] [facility] Rx#:[id number] Other: Weight 106.594 kg Patient is a middle aged Afro[place] male, appears older than his stated age. Patient is comatose, not responding to calling his name, with minimal response to painful stimuli as below. Patient's GCS is 4. Patient is sedated on propofol 50 mcg/kg/min, and also on Cleviprex 2 mg per hour. Patient is intubated on mechanical ventilation. Patient is synchronous with the ventilator, not breathing over the ventilator. On cranial nerve examination, pupils are small, about 2 to 3 mm, equal, round and mildly reacting to light, oculocephalics are slightly present slightly better to the right. Visual francis could not be tested. Patient does have a cough reflex, and also a gag reflex with deep suctioning. Other cranial nerves could not be tested. On muscle strength testing, patient is comatose, not able to cooperate. With painful stimuli, patient does slightly withdraws arms. He did not move his legs to painful stimuli, but does move the legs on deep suctioning when he was gagging. Both legs movements were equal. Deep tendon reflexes are symmetric trace to 1 in the upper limbs, trace at the knees, 1 at the ankles and plantars are questionable upgoing versus flat on either side. Sensory to touch cannot be assessed, response to nailbed pressure mentioned above. Cerebellar function cannot be assessed. Tone is slightly increased on the left and bulk of muscles normal. Gait deferred.. On general examination, there is no carotid bruit or murmur, S1-S2 audible. Chest is clear on consultation. Abdomen is soft nontender. No organomegaly, bowel sounds present. Peripheral pulses are present. Mild peripheral edema, some hyperpigmentation noted in the front of the dickey bilaterally. Results - Laboratory Findings CBC and BMP: 09/11/23 03:46 09/11/23 03:46 Abnormal Lab Findings: Abnormal Labs 09/10/23 09/10/23 09/10/23 16:03 16:03 16:03 WBC 16.8 H RBC 6.27 H Plt Count 454 H Lymphocytes # (Manual) 10.75 H Monocytes # (Manual) 1.51 H ABG pO2 ABG Total CO2 ABG O2 Saturation Carbon Dioxide 21 L Glucose 325 H POC Glucose (mg/dL) Plasma Lactic Acid Case 6.1 H* AST 580 H ALT 589 H Total Protein 8.5 H U Marijuana (THC) Screen 09/10/23 09/10/23 09/10/23 16:09 16:11 17:26 WBC RBC Plt Count Lymphocytes # (Manual) Monocytes # (Manual) ABG pO2 79 L ABG Total CO2 26 H ABG O2 Saturation 93.9 L Carbon Dioxide Glucose POC Glucose (mg/dL) 297 H Plasma Lactic Acid Case AST ALT Total Protein U Marijuana (THC) Screen Detected H 09/10/23 20:28 WBC RBC Plt Count Lymphocytes # (Manual) Monocytes # (Manual) ABG pO2 ABG Total CO2 ABG O2 Saturation Carbon Dioxide Glucose POC Glucose (mg/dL) 255 H Plasma Lactic Acid Case AST ALT Total Protein U Marijuana (THC) Screen Assessment and Plan Assessment: * Status post seizure with fall from a standing position, followed by cardiac arrest. According to patient's daughter, the downtime was 4 minutes, although the EMS flowsheet mentions 10 minutes of downtime. * History of cerebral aneurysm, status post endovascular coiling in 2004. 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 Patient off seizure medication for at least a year. * Ventilator dependent respiratory failure, on mechanical ventilation * Possible aspiration pneumonia * Lactic acidosis, secondary to seizure * Diabetes * Hypertension * Hyperlipidemia * Obesity * Marijuana use Plan: * Patient has been intubated, placed on mechanical ventilation. * Patient given loading dose of Keppra 1500 mg in the ER and maintained on Keppra 1000 mg twice daily. * Check EEG * Repeat CT head and CTA of head and neck to follow-up on cerebral aneurysm. * 2D echo * Abnormal chest x-ray, would defer to pulmonary if antibiotics is needed. * DVT prophylaxis: Heparin 5000 units subcu every 8 hours * Telemetry monitoring. * Neurology will follow. Thank you for the consult.
--- NOTE | 2023-09-11 08:13 | XR ---
EXAMINATION TYPE: XR chest 1V DATE OF EXAM: 09/11/2023 COMPARISON: 09/10/2023 HISTORY: Abnormal x-ray TECHNIQUE: Single frontal view of the chest is obtained. FINDINGS: ET, NG tube, central line stable. There now is left lower lobe infiltrate and small effusi on. Heart is enlarged. Atherosclerotic change aorta. No overt failure. Arthropathy of the shoulders. IMPRESSION: Interval development left lower lobe infiltrate and small effusion.
--- NOTE | 2023-09-11 08:43 | P.HPIM ---
History of Present Illness H&P Date: 09/11/23 Chief Complaint: seizure/fall This is a 58-year-old male who presented to the emergency department yesterday [place] and fell directly back and hit the back of his head to which he became unconscious. Patient never regained consciousness and was asystole when EMS arrived. Agonal breathing was noted. EMS notes the cardiac arrest was for 10 minutes and rhythm that came back was reportedly atrial fibrillation. Patient reportedly has a past history of seizures, was reportedly diagnosed with a cerebral aneurysm in 2004. It is believed by the daughter patient has been off of his seizure medication for 1 year, recent unknown. Patient last seen in our office in March. Patient reportedly under a lot of stress and undergoing a divorce. Past medical history includes diabetes, hyperlipidemia, and hypertension. Patient is seen intubated in the ICU this morning. An echo and an EEG have been ordered. Review of Systems ROS unobtainable: due to endotracheal tube, due to mental status Past Medical History Past Medical History: Diabetes Mellitus, Hyperlipidemia, Hypertension Additional Past Surgical History / Comment(s): [employer] aneursyns coiling, aneurysm Medications and Allergies Home Medications Medication Instructions Recorded Confirmed Type Losartan/Hydrochlorothiazide 1 tab PO DAILY 09/10/23 09/10/23 History [Losartan-Hctz 100-25 mg Tab] Lovastatin [Mevacor] 20 mg PO W/SUPPER 09/10/23 09/10/23 History Pioglitazone [Actos] 15 mg PO DAILY 09/10/23 09/10/23 History amLODIPine [Norvasc] 5 mg PO DAILY 09/10/23 09/10/23 History metFORMIN HCL 1,000 mg PO BID 09/10/23 09/10/23 History Allergies Allergy/AdvReac Type Severity Reaction Status Date / Time No Known Allergies Allergy Verified 09/10/23 17:47 Physical Exam Vitals: Vital Signs Temp Pulse Pulse Resp BP BP Pulse Ox 09/11/23 08:14 09/11/23 07:00 68 20 97 09/11/23 06:30 69 20 98 09/11/23 06:18 09/11/23 06:00 67 20 137/75 99 09/11/23 05:30 64 20 139/83 99 09/11/23 05:00 65 20 128/68 100 09/11/23 04:45 67 20 136/74 100 02/06/24 04:30 64 20 123/70 100 09/11/23 04:19 09/11/23 04:15 66 20 132/67 100 09/11/23 04:00 98.1 F 66 20 109/69 100 09/11/23 03:45 69 20 118/69 100 09/11/23 03:30 64 20 124/69 100 09/11/23 03:15 66 13 106/67 100 09/11/23 03:00 68 20 112/67 100 09/11/23 02:45 68 20 109/68 100 09/11/23 02:30 67 20 113/69 100 09/11/23 02:15 66 20 127/72 100 09/11/23 02:00 66 20 107/62 100 09/11/23 01:45 69 20 111/64 100 09/11/23 01:30 73 20 112/67 100 09/11/23 01:15 72 20 107/70 100 09/11/23 01:04 09/11/23 01:00 82 8 L 119/92 100 09/11/23 00:45 81 8 L 120/76 100 09/11/23 00:30 70 20 141/85 09/11/23 00:15 77 20 99/68 100 09/11/23 00:00 98.5 F 76 20 103/74 09/10/23 23:45 74 20 114/73 99 09/10/23 23:30 76 21 138/86 99 09/10/23 23:15 83 20 114/76 100 09/10/23 23:00 76 20 89/60 99 09/10/23 22:45 78 20 89/58 99 09/10/23 22:30 76 20 94/61 99 09/10/23 22:15 79 20 92/60 02 22:06 79 20 92/60 99 09/10/23 22:00 82 20 129/76 99 09/10/23 21:45 99 20 149/66 97 09/10/23 21:30 107 H 20 131/75 99 09/10/23 21:15 98 20 168/89 99 09/10/23 21:00 108 H 20 157/93 98 09/10/23 20:45 96 20 179/115 99 09/10/23 20:30 98.5 F 120 H 55 H 195/124 97 09/10/23 20:00 09/10/23 19:37 09/10/23 19:00 100 22 128/72 100 09/10/23 18:37 09/10/23 18:30 97.7 F 115 H 24 157/110 100 09/10/23 18:00 97.7 F 116 H 33 H 177/83 100 09/10/23 17:45 97.7 F 117 H 30 H 167/82 99 09/10/23 17:30 97.7 F 106 H 26 H 148/89 96 09/10/23 17:15 97.6 F 104 H 104 H 22 147/81 147/81 98 09/10/23 17:00 97.4 F L 101 H 28 H 139/96 96 09/10/23 16:45 97.2 F L 102 H 22 111/73 93 L 09/10/23 16:40 09/10/23 16:30 97.1 F L 109 H 17 128/81 88 L 09/10/23 16:20 97.0 F L 111 H 21 184/108 88 L 09/10/23 16:15 97.0 F L 111 H 18 184/108 88 L 09/10/23 16:09 97.0 F L 122 H 17 209/126 83 L 09/10/23 16:05 09/10/23 15:58 0 L 09/10/23 15:55 97.0 F L 129 H 11 L 243/165 88 L FiO2 09/11/23 08:14 50 09/11/23 07:00 50 09/11/23 06:30 09/11/23 06:18 50 09/11/23 06:00 100 09/11/23 05:30 09/11/23 05:00 09/11/23 04:45 09/11/23 04:30 09/11/23 04:19 100 09/11/23 04:15 09/11/23 04:00 100 09/11/23 03:45 09/11/23 03:30 09/11/23 03:15 09/11/23 03:00 100 09/11/23 02:45 09/11/23 02:30 09/11/23 02:15 09/11/23 02:00 09/11/23 01:45 09/11/23 01:30 09/11/23 01:15 09/11/23 01:04 09/11/23 01:00 09/11/23 00:45 09/11/23 00:30 09/11/23 00:15 09/11/23 00:00 09/10/23 23:45 09/10/23 23:30 09/10/23 23:15 09/10/23 23:00 09/10/23 22:45 09/10/23 22:30 09/10/23 22:15 09/10/23 22:06 09/10/23 22:00 09/10/23 21:45 09/10/23 21:30 09/10/23 21:15 09/10/23 21:00 09/10/23 20:45 09/10/23 20:30 09/10/23 20:00 09/10/23 19:37 09/10/23 19:00 09/10/23 18:37 09/10/23 18:30 09/10/23 18:00 09/10/23 17:45 09/10/23 17:30 09/10/23 17:15 09/10/23 17:00 09/10/23 16:45 09/10/23 16:40 09/10/23 16:30 09/10/23 16:20 09/10/23 16:15 09/10/23 16:09 09/10/23 16:05 09/10/23 15:58 09/10/23 15:55 Intake and Output 09/10/23 09/11/23 09/11/23 22:59 06:59 14:59 Intake Total 135.612 252.278 Output Total 660 550 65 Balance -524.388 -297.722 -65 Intake: Intake, IV Titration 135.612 252.278 Amount Clevidipine Butyrate 25 4.600 mg In Empty Bag 1 bag @ 1 MG/HR 2 mls/hr IV .Q24H [facility] Rx#:[id number] propofoL 1,000 mg In 131.012 252.278 Empty Bag 1 bag @ 15 MCG/ KG/MIN 9.594 mls/hr IV . [id number] [facility] Rx#:[id number] Output: Urine 660 550 65 Other: Voiding Method Indwelling Catheter Indwelling Catheter Weight 106.594 kg 119.7 kg ABP, PAP, CO, CI - Last 8 Hours Arterial Blood Pressure 114/68 Arterial Blood Pressure 130/64 - Constitutional General appearance: no acute distress - Neck Neck: no lymphadenopathy, no rigidity - Respiratory Respiratory: bilateral: CTA - Cardiovascular Rhythm: regular Heart sounds: normal: S1, S2 - Gastrointestinal General gastrointestinal: soft, no tenderness - Integumentary Integumentary: normal - Psychiatric comatose Results CBC & Chem 7: 09/11/23 03:46 09/11/23 03:46 Labs: Abnormal Lab Results - Last 24 Hours (Table) 09/10/23 09/10/23 09/10/23 Range/Units 16:03 16:03 16:03 WBC 16.8 H (3.8-10.6) k/uL RBC 6.27 H (4.30-5.90) m/uL MCV (80.0-100.0) fL MCH (25.0-35.0) pg Plt Count 454 H (150-450) k/uL Neutrophils # (1.3-7.7) k/uL Lymphocytes # (Manual) 10.75 H (1.0-4.8) k/uL Monocytes # (Manual) 1.51 H (0-1.0) k/uL ABG pH (7.35-7.45) ABG pCO2 (35-45) mmHg ABG pO2 (83-108) mmHg ABG Total CO2 (19-24) mmol/L ABG O2 Saturation (94-97) % Potassium (3.5-5.1) mmol/L Carbon Dioxide 21 L (22-30) mmol/L Glucose 325 H (74-99) mg/dL POC Glucose (mg/dL) (70-110) mg/dL Plasma Lactic Acid Case 6.1 H* (0.7-2.0) mmol/L Magnesium (1.6-2.3) mg/dL AST 580 H (17-59) U/L ALT 589 H (4-49) U/L Total Protein 8.5 H (6.3-8.2) g/dL U Marijuana (THC) Screen (NotDetected) 02/05/24 02/05/24 02/05/24 Range/Units 16:09 16:11 17:26 WBC (3.8-10.6) k/uL RBC (4.30-5.90) m/uL MCV (80.0-100.0) fL MCH (25.0-35.0) pg Plt Count (150-450) k/uL Neutrophils # (1.3-7.7) k/uL Lymphocytes # (Manual) (1.0-4.8) k/uL Monocytes # (Manual) (0-1.0) k/uL ABG pH (7.35-7.45) ABG pCO2 (35-45) mmHg ABG pO2 79 L (83-108) mmHg ABG Total CO2 26 H (19-24) mmol/L ABG O2 Saturation 93.9 L (94-97) % Potassium (3.5-5.1) mmol/L Carbon Dioxide (22-30) mmol/L Glucose (74-99) mg/dL POC Glucose (mg/dL) 297 H (70-110) mg/dL Plasma Lactic Acid Case (0.7-2.0) mmol/L Magnesium (1.6-2.3) mg/dL AST (17-59) U/L ALT (4-49) U/L Total Protein (6.3-8.2) g/dL U Marijuana (THC) Screen Detected H (NotDetected) 09/10/23 09/10/23 09/10/23 Range/Units 20:28 20:58 23:59 WBC (3.8-10.6) k/uL RBC (4.30-5.90) m/uL MCV (80.0-100.0) fL MCH (25.0-35.0) pg Plt Count (150-450) k/uL Neutrophils # (1.3-7.7) k/uL Lymphocytes # (Manual) (1.0-4.8) k/uL Monocytes # (Manual) (0-1.0) k/uL ABG pH (7.35-7.45) ABG pCO2 (35-45) mmHg ABG pO2 (83-108) mmHg ABG Total CO2 (19-24) mmol/L ABG O2 Saturation (94-97) % Potassium (3.5-5.1) mmol/L Carbon Dioxide (22-30) mmol/L Glucose (74-99) mg/dL POC Glucose (mg/dL) 255 H 296 H (70-110) mg/dL Plasma Lactic Acid Case 2.3 H* (0.7-2.0) mmol/L Magnesium (1.6-2.3) mg/dL AST (17-59) U/L ALT (4-49) U/L Total Protein (6.3-8.2) g/dL U Marijuana (THC) Screen (NotDetected) 09/11/23 09/11/23 09/11/23 Range/Units 00:27 03:46 03:46 WBC 11.5 H (3.8-10.6) k/uL RBC (4.30-5.90) m/uL MCV 77.0 L (80.0-100.0) fL MCH 24.7 L (25.0-35.0) pg Plt Count (150-450) k/uL Neutrophils # 9.1 H (1.3-7.7) k/uL Lymphocytes # (Manual) (1.0-4.8) k/uL Monocytes # (Manual) (0-1.0) k/uL ABG pH (7.35-7.45) ABG pCO2 (35-45) mmHg ABG pO2 (83-108) mmHg ABG Total CO2 (19-24) mmol/L ABG O2 Saturation (94-97) % Potassium 3.3 L (3.5-5.1) mmol/L Carbon Dioxide 21 L (22-30) mmol/L Glucose 222 H (74-99) mg/dL POC Glucose (mg/dL) (70-110) mg/dL Plasma Lactic Acid Case 2.1 H* (0.7-2.0) mmol/L Magnesium (1.6-2.3) mg/dL AST 294 H (17-59) U/L ALT 366 H (4-49) U/L Total Protein (6.3-8.2) g/dL U Marijuana (THC) Screen (NotDetected) 09/11/23 09/11/23 09/11/23 Range/Units 03:46 05:06 06:00 WBC (3.8-10.6) k/uL RBC (4.30-5.90) m/uL MCV (80.0-100.0) fL MCH (25.0-35.0) pg Plt Count (150-450) k/uL Neutrophils # (1.3-7.7) k/uL Lymphocytes # (Manual) (1.0-4.8) k/uL Monocytes # (Manual) (0-1.0) k/uL ABG pH 7.63 H* (7.35-7.45) ABG pCO2 24 L (35-45) mmHg ABG pO2 305 H (83-108) mmHg ABG Total CO2 25 H (19-24) mmol/L ABG O2 Saturation 98.3 H (94-97) % Potassium (3.5-5.1) mmol/L Carbon Dioxide (22-30) mmol/L Glucose (74-99) mg/dL POC Glucose (mg/dL) 216 H (70-110) mg/dL Plasma Lactic Acid Case (0.7-2.0) mmol/L Magnesium 1.5 L (1.6-2.3) mg/dL AST (17-59) U/L ALT (4-49) U/L Total Protein (6.3-8.2) g/dL U Marijuana (THC) Screen (NotDetected) Microbiology - Last 24 Hours (Table) 09/10/23 17:15 Gram Stain - Preliminary Sputum Assessment and Plan (1) Cardiac arrest Current Visit: Yes Status: Acute Code(s): I46.9 - CARDIAC ARREST, CAUSE UNSPECIFIED SNOMED Code(s): 002154463 (2) Seizure Current Visit: Yes Status: Acute Code(s): R56.9 - UNSPECIFIED CONVULSIONS SNOMED Code(s): 73193047 (3) Diabetes mellitus Current Visit: Yes Status: Acute Code(s): E11.9 - TYPE 2 DIABETES MELLITUS WITHOUT COMPLICATIONS SNOMED Code(s): 43087444 (4) Hypertension Current Visit: Yes Status: Acute Code(s): I10 - ESSENTIAL (PRIMARY) HYPERTENSION SNOMED Code(s): 69918962 (5) Hyperlipidemia Current Visit: Yes Status: Acute Code(s): E78.5 - HYPERLIPIDEMIA, UNSPECIFIED SNOMED Code(s): 43789437 (6) Head injury Current Visit: Yes Status: Acute Code(s): S09.90XA - UNSPECIFIED INJURY OF HEAD, INITIAL ENCOUNTER SNOMED Code(s): 43888801 Plan: Appreciate multiple consults Await results from echo and EEG Continue supportive care Patient seen and evaluated by nurse practitioner, physician in agreement with plan
[2023-09-11 09:00] LABS: Glucose,Whole Blood 227 mg/dL (70-110)
--- NOTE | 2023-09-11 09:54 | EEG ---
ELECTROENCEPHALOGRAM REPORT PREAMBLE: This is a 58-year-old male with history of seizure, came with seizure followed by cardiac arrest. This study is performed to evaluate for any encephalopathy, epileptiform activity. CURRENT MEDICATIONS: 1. Cleviprex. 2. Propofol 35 mcg per kg per minute. 3. Keppra 1000 mg b.i.d. 4. Ativan p.r.n. EEG FINDINGS: This is a 21-channel digital EEG recorded with video component, utilizing 10/20 international system with referential and bipolar montages. Background consists of diffusely slow background, consisting of mixed 5 to 6 hertz theta intermixed with 2 to 3 hertz delta activity seen in bihemispheric region. Intermittent periods of generalized suppression were also seen sporadically, periodically during this study. EKG artifact was seen in the left temporal leads. Different stages of sleep were not seen. No focal or generalized epileptiform activity was seen. IMPRESSION: This is an abnormal EEG due to background slowing of moderate to severe degree. This is suggestive of generalized cerebral dysfunction as can be seen with toxic metabolic encephalopathy or related to diffuse structural brain abnormality. Clinical correlation is recommended. No epileptiform activity was seen. MMODL / IJN: [id number] /
--- NOTE | 2023-09-11 10:23 | P.PN ---
Subjective Progress Note Date: 09/11/23 This is a 58-year-old male patient was brought in to the emergency department following a cardiac arrest. The patient was in the court house and he was noted to have an acute seizure, tonic-clonic in nature that lasted for around 2 to 3 minutes, during which, the patient had stool and urinary incontinence. The patient dropped and hit the back of his head and went unconscious. Subsequently, he was found unconscious and the fire department arrived to the scene and the patient was having agonal breathing and apparently was in asystole. The patient was given CPR for total of 3 minutes and he regained spontaneous circulation. His breathing was still agonal and he was being bagged on the way to the emergency department. In the ED, the patient was intubated immediately. The patient was placed on a mechanical ventilator. The postintubation chest x-ray showed right upper lobe atelectatic changes and ET tube was repositioned. The patient also had cardiomegaly and increased pulm vascular markings bilaterally. CAT scan of the head was done in addition to the CT scan of the cervical spine. The patient was found to have no acute intracranial process. There was some subcutaneous edema near the skull vertex without evidence of any fracture. There was encephalomalacia involving the frontal lobe related to previous surgery given the metallic density that was found in the suprasellar space. Patient had no evidence of any cervical fracture. No evidence of any hemorrhage or mass effect on the warren-white junction was well-differentiated. A metallic clip was seen as mentioned. The upper part of the lung showed bilateral airspace disease consistent with pulmonary edema. I arrived to evaluate this patient in the emergency department. He was placed on propofol and is running at 55 mcg of volume psych: Mechanical ventilation. He was having abdominal bleeding and he was quite tac hypneic. I switched him to pressure control mode and currently is on a pressure control of 25 with a PEEP of 5 and FiO2 of 100% in the rate of 20. Triple-lumen catheter was established in his left IJ. The post line insertion chest x-ray shows no evidence of any complications. No evidence of any pneumothorax. The patient remained hemodynamically stable. No further seizure activity has been noted. He was given IV Keppra in the emergency department and a total of 1.5 g of IV Keppra piggyback was given. No fever. No neck stiffness. WBC count is 16.8 with a hemoglobin of 15.9 and a platelet count of 454. BUN is at 15 with a creatinine of 1.07. Electrolytes are normal. Blood sugars at 325. As for the rest of the labs, the urine drug screen is positive for marijuana, negative for alcohol. Lactic acid level was at 6.1. AST is 580, ALT is 589 with a normal bilirubin and normal alkaline phosphatase. For set of troponin is at 0.024. He was given a dose of Lasix in the emergency department. Upon further discussion with the family, the patient has had a remote history of PACK MASTER aneurysm coiling. No reported seizure activity at least recently and the patient has been taking no antiepileptic medication. The patient has hypertension hyperlipidemia and diabetes mellitus maintained on oral medications. No further history is available at this point in time. No history of any cardiac disease. On today's evaluation of 09/11/2023, the patient is, comfortable, sedated with propofol which is running at 35 mcg/kg/min. The patient remains intubated on mechanical ventilator. He is on a pressure control mode of mechanical ventilation with a rate of 20 and a pressure control of 25 cm of water and affect has been dropped down to 50% with a PEEP of 5. The patient had a blood gas today that showed a pH of 7.63 with a pCO2 of 24 and a pO2 of 35. This is in a vegetative change and will be done accordingly. Chest x-ray shows improvement in the right upper lobe and atelectasis in the pulmonary vascular congestion. Orotracheal tube is in good location. He is afebrile. He is hemodynamically stable. In fact, he was hypertensive overnight and he was started on clevidipine drip and this was ultimately discontinued as the patient's blood pressure normalized. The patient is going to undergo a neurowork-up including a CTA of his brain and an EEG today. Echocardiogram is a lso to be done today. proBNP level was elevated at 2800. Labs from today showed a WBC count 11.5, hemoglobin 15.5 and a platelet count of 333. Sodium is at 137, potassium is at 3.3, BUN is 18 with a creatinine of 1.1. LFTs are improving with an AST of 294 and an ALT of 366. Blood sugars at 227 and the patient remains on insulin sliding scale coverage. IV fluids are currently at KVO. Producing adequate amount of urine output. Lactic acid level has dropped down to 1.6. Neurology has been consulted. Objective - Vital Signs Vital signs: Vital Signs Temp 98.1 F 09/11/23 04:00 Pulse 68 09/11/23 07:00 Resp 20 09/11/23 07:00 BP 122/77 09/11/23 06:30 Pulse Ox 97 09/11/23 07:00 FiO2 50 09/11/23 07:00 Intake & Output 09/10/23 09/11/23 09/11/23 18:59 06:59 18:59 Intake Total 21.747 366.143 Output Total 1210 65 Balance .747 -843.857 -65 Weight 106.594 kg 119.7 kg Intake: Intake, IV Titration 21.747 366.143 Amount Clevidipine Butyrate 25 4.600 mg In Empty Bag 1 bag @ 1 MG/HR 2 mls/hr IV .Q24H [facility] Rx#:[id number] propofoL 1,000 mg In 21.747 361.543 Empty Bag 1 bag @ 15 MCG/ KG/MIN 9.594 mls/hr IV . [id number] [facility] Rx#:[id number] Output: Urine 1210 65 Other: Voiding Method Indwelling Catheter ABP, PAP, CO, CI - Last Documented Arterial Blood Pressure 114/68 - Exam General appearance the patient is calm comfortable, no acute distress Intubated on mechanical ventilator. Orogastric and orotracheal tube is in place. No obvious seizure activity noted. Head exam was generally normal. There was no scleral icterus or corneal arcus. Mucous membranes were moist. Neck was supple and without jugular venous distension, thyromegaly, or carotid bruits. Carotids were easily palpable bilaterally. There was no adenopathy. Lungs were clear to auscultation and percussion, and with normal diaphragmatic excursion. No wheezes or rales were noted. Cardiac exam revealed the PMI to be normally situated and sized. The rhythm was regular and no extrasystoles were noted during several minutes of auscultation. The first and second heart sounds were normal and physiologic splitting of the second heart sound was noted. There were no murmurs, rubs, clicks, or gallops. Abdominal exam revealed normal bowel sounds. The abdomen was soft, non-tender, and without masses, organomegaly, or appreciable enlargement of the abdominal aorta. Examination of the extremities revealed easily palpable radial, femoral and pedal pulses. There was no cyanosis, clubbing or edema. Examination of the skin revealed no evidence of significant rashes, suspicious appearing nevi or other concerning lesions. Neurologically, the patient is sedated, pupils are equal reactive to light minh und 3 mm in size. No nystagmus. No facial asymmetry. Positive cough and gag. Sensorimotor function cannot be assessed. No Babinski. No clonus. - Labs CBC & Chem 7: 09/11/23 03:46 09/11/23 03:46 Labs: Abnormal Lab Results - Last 24 Hours (Table) 09/10/23 09/10/23 09/10/23 Range/Units 16:03 16:03 16:03 WBC 16.8 H (3.8-10.6) k/uL RBC 6.27 H (4.30-5.90) m/uL MCV (80.0-100.0) fL MCH (25.0-35.0) pg Plt Count 454 H (150-450) k/uL Neutrophils # (1.3-7.7) k/uL Lymphocytes # (Manual) 10.75 H (1.0-4.8) k/uL Monocytes # (Manual) 1.51 H (0-1.0) k/uL ABG pH (7.35-7.45) ABG pCO2 (35-45) mmHg ABG pO2 (83-108) mmHg ABG Total CO2 (19-24) mmol/L ABG O2 Saturation (94-97) % Potassium (3.5-5.1) mmol/L Carbon Dioxide 21 L (22-30) mmol/L Glucose 325 H (74-99) mg/dL POC Glucose (mg/dL) (70-110) mg/dL Plasma Lactic Acid Case 6.1 H* (0.7-2.0) mmol/L Magnesium (1.6-2.3) mg/dL AST 580 H (17-59) U/L ALT 589 H (4-49) U/L Total Protein 8.5 H (6.3-8.2) g/dL U Marijuana (THC) Screen (NotDetected) 09/10/23 09/10/23 09/10/23 Range/Units 16:09 16:11 17:26 WBC (3.8-10.6) k/uL RBC (4.30-5.90) m/uL MCV (80.0-100.0) fL MCH (25.0-35.0) pg Plt Count (150-450) k/uL Neutrophils # (1.3-7.7) k/uL Lymphocytes # (Manual) (1.0-4.8) k/uL Monocytes # (Manual) (0-1.0) k/uL ABG pH (7.35-7.45) ABG pCO2 (35-45) mmHg ABG pO2 79 L (83-108) mmHg ABG Total CO2 26 H (19-24) mmol/L ABG O2 Saturation 93.9 L (94-97) % Potassium (3.5-5.1) mmol/L Carbon Dioxide (22-30) mmol/L Glucose (74-99) mg/dL POC Glucose (mg/dL) 297 H (70-110) mg/dL Plasma Lactic Acid Case (0.7-2.0) mmol/L Magnesium (1.6-2.3) mg/dL AST (17-59) U/L ALT (4-49) U/L Total Protein (6.3-8.2) g/dL U Marijuana (THC) Screen Detected H (NotDetected) 09/10/23 09/10/23 09/10/23 Range/Units 20:28 20:58 23:59 WBC (3.8-10.6) k/uL RBC (4.30-5.90) m/uL MCV (80.0-100.0) fL MCH (25.0-35.0) pg Plt Count (150-450) k/uL Neutrophils # (1.3-7.7) k/uL Lymphocytes # (Manual) (1.0-4.8) k/uL Monocytes # (Manual) (0-1.0) k/uL ABG pH (7.35-7.45) ABG pCO2 (35-45) mmHg ABG pO2 (83-108) mmHg ABG Total CO2 (19-24) mmol/L ABG O2 Saturation (94-97) % Potassium (3.5-5.1) mmol/L Carbon Dioxide (22-30) mmol/L Glucose (74-99) mg/dL POC Glucose (mg/dL) 255 H 296 H (70-110) mg/dL Plasma Lactic Acid Case 2.3 H* (0.7-2.0) mmol/L Magnesium (1.6-2.3) mg/dL AST (17-59) U/L ALT (4-49) U/L Total Protein (6.3-8.2) g/dL U Marijuana (THC) Screen (NotDetected) 09/11/23 09/11/23 09/11/23 Range/Units 00:27 03:46 03:46 WBC 11.5 H (3.8-10.6) k/uL RBC (4.30-5.90) m/uL MCV 77.0 L (80.0-100.0) fL MCH 24.7 L (25.0-35.0) pg Plt Count (150-450) k/uL Neutrophils # 9.1 H (1.3-7.7) k/uL Lymphocytes # (Manual) (1.0-4.8) k/uL Monocytes # (Manual) (0-1.0) k/uL ABG pH (7.35-7.45) ABG pCO2 (35-45) mmHg ABG pO2 (83-108) mmHg ABG Total CO2 (19-24) mmol/L ABG O2 Saturation (94-97) % Potassium 3.3 L (3.5-5.1) mmol/L Carbon Dioxide 21 L (22-30) mmol/L Glucose 222 H (74-99) mg/dL POC Glucose (mg/dL) (70-110) mg/dL Plasma Lactic Acid Case 2.1 H* (0.7-2.0) mmol/L Magnesium (1.6-2.3) mg/dL AST 294 H (17-59) U/L ALT 366 H (4-49) U/L Total Protein (6.3-8.2) g/dL U Marijuana (THC) Screen (NotDetected) 09/11/23 09/11/23 09/11/23 Range/Units 03:46 05:06 06:00 WBC (3.8-10.6) k/uL RBC (4.30-5.90) m/uL MCV (80.0-100.0) fL MCH (25.0-35.0) pg Plt Count (150-450) k/uL Neutrophils # (1.3-7.7) k/uL Lymphocytes # (Manual) (1.0-4.8) k/uL Monocytes # (Manual) (0-1.0) k/uL ABG pH 7.63 H* (7.35-7.45) ABG pCO2 24 L (35-45) mmHg ABG pO2 305 H (83-108) mmHg ABG Total CO2 25 H (19-24) mmol/L ABG O2 Saturation 98.3 H (94-97) % Potassium (3.5-5.1) mmol/L Carbon Dioxide (22-30) mmol/L Glucose (74-99) mg/dL POC Glucose (mg/dL) 216 H (70-110) mg/dL Plasma Lactic Acid Case (0.7-2.0) mmol/L Magnesium 1.5 L (1.6-2.3) mg/dL AST (17-59) U/L ALT (4-49) U/L Total Protein (6.3-8.2) g/dL U Marijuana (THC) Screen (NotDetected) Assessment and Plan Plan: New onset seizures, witnessed, lasted for few minutes and the seizure spontaneously aborted. The patient started on IV Keppra in the emergency department. CAT scan of the brain shows no acute neurologic process. No clinical seizures over the past 24 hours or since intubation. Asystole/cardiac arrest with a downtime a few minutes with return of spontaneous regulation post CPR Acute hypoxic respiratory failure secondary to above, chest x-ray was noted and a blood gas was noted Acute lactic acidosis secondary to above, improving History of PACK MASTER aneurysm post coiling Obesity with a BMI of 32 Diabetes mellitus type 2 Hypertension Hyperlipidemia Plan Keep the patient sedated on propofol Continue IV Keppra Ativan on as-needed basis for agitation and or seizure activity EEG and CT of the brain to be done today No ongoing clinical seizure activity Neurology consultation is to be obtained today Continue ventilator support and keep the patient on pressure control mode of mechanical ventilation, I am going to lower the respirate down to 14 and dropped the pressure control down to 20 cm of water. Wean FiO2 as tolerated to maintain saturation above 90% Discontinued IV Lasix Echocardiogram in the morning, this is to be done today Marquise Hayesviprex drip has been discontinued NovoLog insulin for sliding scale coverage and blood sugar control Heparin subcu for DVT prophylaxis Will continue to follow. Condition is critical. Is a critical care evaluation that was done more than 30 minutes. Awaiting further workup. Time with Patient: Greater than 30
--- NOTE | 2023-09-11 11:49 | CONS ---
CONSULTATION HISTORY OF PRESENT ILLNESS: Andrea Triplett is a 58-year-old gentleman who came through the emergency room yesterday after having had a seizure in the court house, fell back, hit his head and at that point, apparently was unconscious and there was a question of some blood coming out of his nose. He never regained consciousness and the fire department arrived, had agonal breath sounds, asystole, requiring CPR for about 3-4 minutes according to the note. However, he is in a sinus rhythm right now, deeply sedated, intubated. He has a history of hypertension, hyperlipidemia, type 2 diabetes, and previous intracranial surgery with a history of seizure disorder as well. The details of his intracranial surgery are unavailable at this time. At the time of my evaluation, the patient is deeply sedated, I cannot have any assessment from a neurological standpoint, but cardiac-arana he is in sinus rhythm. He appears to be hemodynamically stable at this time. EKG does not reveal any acute changes. The patient is known to have history of some intracranial surgery in the past, details unavailable. He has hypertension, hyperlipidemia, and diabetes. PAST MEDICAL HISTORY: 1. Intracranial surgery, details unavailable. 2. Hypertension. 3. Hyperlipidemia. 4. Type 2 diabetes. PHYSICAL EXAMINATION: GENERAL: On examination, the patient is deeply sedated. VITAL SIGNS: Blood pressure is 118/70, pulse rate is 70, sinus. HEENT: Limited examination. Pupils react, HEENT unremarkable. Fundus was not examined. NECK: Supple. No JVD. No carotid bruit. HEART: Reveals S1, S2 heard normally. No significant murmurs. LUNGS: Reveal diminished air entry. ABDOMEN: Soft. CENTRAL NERVOUS SYSTEM: Assessment not performed. IMPRESSION: 1. Seizure disorder and head injury when he fell on his back. 2. Probable cardiac arrest, details unavailable. 3. History of a previous intracranial surgery. 4. Probable cardiac arrest. 5. Hypertension. 6. Type 2 diabetes. RECOMMENDATIONS: I would recommend that we continue supportive care. Await further input from Neurology. Obtain echocardiogram to assess LV function. No aggressive intervention cardiac-arana at this time. Based on clinical course, I will make further recommendations. MMODL / IJN: [id number] /
--- NOTE | 2023-09-11 12:11 | CA ---
Transthoracic Echo Report Name: Andrea Triplett Age: 58 Gender: M : 1965 Exam Date: 09/11/2023 08:02 Exam Location: [facility] Ht (in): 72 Wt (lb): 235 Ordering Physician: Tyler Frank MD Attending/Referring Phys: Pet Groomer Adrianna Oliveros RDCS Procedure CPT: Indications: Cardiac Arrest Cardiac Hx: Technical Quality: Technically difficult study Contrast 1: Definity Total Dose (mL): 2 Contrast 2: Total Dose (mL): MEASUREMENTS (Male / Female) Normal Values 2D ECHO LV Diastolic Diameter PLAX 5.0 cm 4.2 - 5.9 / 3.9 - 5.3 cm LV Systolic Diameter PLAX 4.1 cm IVS Diastolic Thickness 1.8 cm 0.6 - 1.0 / 0.6 - 0.9 cm LVPW Diastolic Thickness 2.4 cm 0.6 - 1.0 / 0.6 - 0.9 cm LV Relative Wall Thickness 0.8 RV Internal Dim ED PLAX 3.5 cm LA Systolic Diameter LX 4.9 cm 3.0 - 4.0 / 2.7 - 3.8 cm LV Diastolic Volume MOD BP 50.6 cm??? 67 - 155 / 56 - 104 cm??? LV Systolic Volume MOD BP 28.4 cm??? 22 - 58 / 19 - 49 cm??? LV Ejection Fraction MOD BP 43.8 % >= 55 % LV Cardiac Index MOD BP 639.5 cm???/min???m??? LV Diastolic Volume MOD 4C 65.7 cm??? LV Systolic Volume MOD 4C 28.7 cm??? LV Ejection Fraction MOD 4C 56.3 % LV Cardiac Index MOD 4C 1068.6 cm???/min???m??? LV Diastolic Length 4C 8.1 cm LV Systolic Length 4C 7.1 cm LV Diastolic Volume MOD 2C 36.9 cm??? LV Systolic Volume MOD 2C 26.8 cm??? LV Ejection Fraction MOD 2C 27.3 % LV Cardiac Index MOD 2C 290.9 cm???/min???m??? LV Diastolic Length 2C 8.8 cm LV Systolic Length 2C 8.0 cm LA Volume 69.3 cm??? 18 - 58 / 22 - 52 cm??? LA Volume Index 29.4 cm???/m??? 16 - 28 cm???/m??? M-MODE LV Diastolic Diameter MM 5.6 cm 4.2 - 5.9 / 3.9 - 5.3 cm LV Systolic Diameter MM 4.3 cm LV Cardiac Index MM Vicich 2078.7 cm???/min???m??? IVS Diastolic Thickness MM 1.7 cm 0.6 - 1.0 / 0.6 - 0.9 cm LVPW Diastolic Thickness MM 2.1 cm 0.6 - 1.0 / 0.6 - 0.9 cm LV Relative Wall Thickness MM 0.7 0.24 - 0.42 / 0.22 - 0.42 LV Mass Index MM 238.3 g/m??? 49 - 115 / 43 - 95 g/m??? Aortic Root Diameter MM 3.7 cm MV E Point Septal Separation 1.1 cm AV Cusp Separation MM 2.3 cm DOPPLER AV Peak Velocity 142.2 cm/s AV Peak Gradient 8.1 mmHg MV Area PHT 2.7 cm??? Mitral E Point Velocity 66.6 cm/s Mitral A Point Velocity 79.0 cm/s Mitral E to A Ratio 0.8 MV Deceleration Time 278.1 ms TR Peak Velocity 212.4 cm/s TR Peak Gradient 18.1 mmHg Right Ventricular Systolic Press 33.1 mmHg FINDINGS Left Ventricle Left ventricular ejection fraction is estimated at 50-55 %. Left ventricular cavity size normal. Severely increased left ventricular mass. Severely increased left ventricular wall thickness. Left ventricular systolic function borderline normal Right Ventricle Mild right ventricular dilatation. Right ventricular systolic pressure within normal limits. Right Atrium Normal right atrial size. Left Atrium Mildly increased left atrial volume. Mildly increased left atrial area. Mitral Valve Structurally normal mitral valve. No mitral stenosis, regurgitation or prolapse. Aortic Valve Trileaflet aortic valve. No aortic valve stenosis or regurgitation. Tricuspid Valve Structurally normal tricuspid valve. Mild tricuspid regurgitation. Pulmonic Valve Structurally normal pulmonic valve. No pulmonic regurgitation. Pericardium No pericardial effusion. Aorta Normal size aortic root and proximal ascending aorta. CONCLUSIONS Technically difficult study. Definity ECHO contrast used for improved visualization of the endocardial borders (inadequate visualization of two or more contiguous segments). Severe left ventricle hypertrophy with left ventricle systolic function borderline normal Limited Doppler study with mild tricuspid regurgitation and no evidence of pulmonary hypertension Previewed by: Dr. Michelle Hart MD (Electronically Signed) Final Date: 11 September 2023 12:10
--- NOTE | 2023-09-11 12:28 | CT ---
EXAMINATION TYPE: CT brain wo con CT DLP: 1134.6 mGycm, Automated exposure control for dose reduction was used. DATE OF EXAM: 09/11/2023 12:14 PM COMPARISON: 09/11/2023. CLINICAL INDICATION:Male, 58 years old with history of Seizure, history of aneurysm, Seizure, history of aneurysm, Cardiac Arrest TECHNIQUE: Brain: Axial CT images of the brain were obtained with coronal and sagittal reformats created and rev iewed. Contrast used: None. Oral contrast used: None. FINDINGS: Brain: Extra-axial spaces: No abnormal extra-axial fluid collections. Falx lipoma anteriorly. Ventricular system: Within normal limits Cerebral parenchyma: Encephalomalacia the right frontal lobe. No acute intraparenchymal hemorrhage or mass effect. The warren-white junction is well differentiated. Metallic clip near the suprasellar spa ce Cerebellum: Unremarkable. Mass effect: No evidence of midline shift. Intracranial vasculature: unremarkable Soft tissues: Calcifications are seen within the floor the mouth measuring up to 26 x 13 mm. Calvarium/osseous structures: No depressed skull fracture. Paranasal sinuses and mastoid air cells: Paranasal sinus mucosal thickening within the nasal cavity. Visualized orbits: Orbital contents are intact. IMPRESSION: 1. No acute intracranial process. No significant change from prior. 2. Encephalomalacia the right frontal lobe possibly secondary to surgical intervention given metalli c density in the suprasellar space. 3. Multiple right calcified stones within the floor the mouth compatible with sialolithiasis.
[2023-09-11 12:39] LABS: Glucose,Whole Blood 171 mg/dL (70-110)
--- NOTE | 2023-09-11 13:01 | CT ---
EXAMINATION TYPE: CT angio head neck CT DLP: 820.8 mGycm, Automated exposure control for dose reduction was used. DATE OF EXAM: 09/11/2023 12:52 PM COMPARISON: CT head same day. CLINICAL INDICATION:Male, 58 years old with history of Seizure, history of aneurysm; PHH, Seizure, hi story of aneurysm, Cardiac Arrest TECHNIQUE: Axially acquired helical CT angiogram of the head and neck was obtained with contrast. Axi al images are supplemented with 3D reconstructions and MIP images which were post-processed at an in dependent workstation. NASCET criteria used. Contrast used:65 ml mL of Isovue 370 without and with IV Contrast, Oral contrast used: None. FINDINGS: CTA HEAD: No evidence of acute intracranial hemorrhage, mass effect, or midline shift. The ventricles, sulci, a nd cisterns are unremarkable. Aneurysm clip is present which limits evaluation of the common. As a hy poplastic right A1 segment. The visualized portions of the internal carotid arteries, middle cerebral arteries, anterior cerebral arteries, and posterior cerebral arteries are patent. Multiple stones in the floor the mouth as described on prior CTs. The basilar and vertebral arteries are patent. CTA NECK: Right Carotid System: The common carotid and external carotid arteries are patent. There is less than 25% stenosis at the c arotid bifurcation secondary to calcified/noncalcified plaque. The rest of the internal carotid arter y is patent. Left Carotid System: The common carotid and external carotid arteries are patent. There is less than 25% stenosis at the c arotid bifurcation secondary to calcified/noncalcified plaque. The rest of the internal carotid arter y is patent. Vertebral arteries are patent without evidence hemodynamically significant stenosis. Left dominant ve rtebral artery system. There is a three-vessel aortic arch. The origins of the great vessels are patent. No evidence of hemo dynamically significant stenosis. Upper thorax: Low lung volumes with atelectasis posteriorly bilaterally. Endotracheal tube terminatin g above the mandy and nasogastric tube also present. IMPRESSION: 1. No evidence of dissection of the cervical internal carotid arteries or vertebral arteries or any e vidence of significant stenosis at the carotid bifurcations. 2. No evidence of intracranial high-grade stenosis or intracranial aneurysm. 3. Hypoplastic right A1 segment. 4. Aneurysmal clip in the anterior communicating artery limits evaluation.
[2023-09-11 13:06] LABS: Magnesium 2.1 mg/dL (1.6-2.3); Phosphorus 3.6 mg/dL (2.5-4.5); Potassium 3.1 mmol/L (3.5-5.1)
[2023-09-11] MEDS: CISATRACURIUM 2 MG/ML 5 ML VIAL IV ONE (13:48)
[2023-09-11] MEDS: POTASSIUM BICARBONATE/CIT AC 20 MEQ TABLET.EFF OG-TUBE SCH (13:55)
[2023-09-11 16:11] LABS: Glucose,Whole Blood 187 mg/dL (70-110)
[2023-09-11 19:49] LABS: Glucose,Whole Blood 193 mg/dL (70-110)
[2023-09-12 00:27] LABS: Glucose,Whole Blood 184 mg/dL (70-110)
[2023-09-12 03:57] LABS: Glucose,Whole Blood 159 mg/dL (70-110)
[2023-09-12 04:29] LABS: Basophils % (A) 1 %; Eosinophils # (A) 0.1 k/uL (0-0.7); Eosinophils % (A) 1 %; HCT 38.7 % (39.0-53.0); HGB 12.7 gm/dL (13.0-17.5); Lymphocytes # (A) 2.2 k/uL (1.0-4.8); Lymphocytes % (A) 32 %; MCH 25.2 pg (25.0-35.0); MCHC 32.8 g/dL (31.0-37.0); MCV 76.7 fL (80.0-100.0); Mean Platelet Volume 7.4; Microcytosis Slight; Monocytes # (A) 0.4 k/uL (0-1.0); Monocytes % (A) 5 %; Neutrophils # (A) 4.2 k/uL (1.3-7.7); Neutrophils % (A) 60 %; Platelet Count 291 k/uL (150-450); RBC 5.04 m/uL (4.30-5.90); RDW 14.7 % (11.5-15.5)
[2023-09-12] MEDS: IPRATROPIUM-ALBUTEROL 3 ML NEB INHALATION SCH (04:33)
[2023-09-12 04:42] LABS: African American GFR (CKD) 71 (>60 ml/min/1.73 sqM); Anion Gap 6 mmol/L; Blood Urea Nitrogen 21 mg/dL (9-20); Calcium 8.5 mg/dL (8.4-10.2); Carbon Dioxide 27 mmol/L (22-30); Chloride 107 mmol/L (98-107); Glucose 146 mg/dL (74-99); Non-African American GFR(CKD) 61 (>60 ml/min/1.73 sqM); Sodium 140 mmol/L (137-145)
[2023-09-12 04:44] LABS: ABG Base Excess 6.2 mmol/L; ABG HCO3 30 mmol/L (21-25); ABG Oxygen Saturation 98.2 % (94-97); ABG PCO2 39 mmHg (35-45); ABG PH 7.49 (7.35-7.45); ABG PO2 169 mmHg (83-108); ABG TCO2 31 mmol/L (19-24)
[2023-09-12] MEDS: POTASSIUM BICARBONATE/CIT AC 20 MEQ TABLET.EFF NG-TUBE SCH ×3 (05:09→15:45)
--- NOTE | 2023-09-12 08:00 | XR ---
EXAMINATION TYPE: XR chest 1V portable DATE OF EXAM: 09/12/2023 COMPARISON: 09/11/2023 HISTORY: Shortness of breath TECHNIQUE: Single frontal view of the chest is obtained. FINDINGS: NG tube and feeding tube stable central lines There now is left lower lobe infiltrate and small effusion. Heart is enlarged. Atherosclerotic change aorta. No overt failure. Arthropathy of the shoulders. Atherosclerotic change aorta. IMPRESSION: Left lower lobe infiltrate and small effusion stable.
[2023-09-12] MEDS: CHLORHEXIDINE GLUCONATE 15 ML CUP MUCOUS MEM SCH (08:51)
--- NOTE | 2023-09-12 08:53 | P.PN ---
Subjective Progress Note Date: 09/12/23 Principal diagnosis: respiratory arrest The patient is a 58-year-old black male who was [place] fall [place] the [place]. Significant respiratory failure was noted but he was resuscitated after having appropriate EMS work he is now admitted due to significant respiratory failure after having fallen and had hit the occiput of his head. History of seizure disorder in the past. EEG does show significant generalized abnormal activity and a generalized sense due to most likely encephalopathy with no element of seizure disorder or epileptiform discharge. Appreciate multiple consultants input. Objective - Vital Signs Vital signs: Vital Signs Temp 98.5 F 09/12/23 04:00 Pulse 66 09/12/23 08:44 Resp 16 09/12/23 07:00 BP 110/56 09/12/23 07:00 Pulse Ox 99 09/12/23 07:00 FiO2 40 09/12/23 07:32 Intake & Output 09/11/23 09/12/23 09/12/23 18:59 06:59 18:59 Intake Total 586.013 577.083 30 Output Total 840 365 55 Balance -253.987 212.083 -25 Weight 119.7 kg 119 kg Intake: Intake, IV Titration 506.013 287.083 Amount Magnesium Sulfate-D5w Pmx 100 1 gm In Dextrose/Water 1 100ml.bag @ 100 mls/hr IVPB Q1H [facility] Rx#: [id number] Potassium Chloride 20 meq 200 In Water For Injection 1 100ml.bag @ 50 mls/hr IVPB Q2H [facility] Rx#: [id number] propofoL 1,000 mg In 206.013 287.083 Empty Bag 1 bag @ 15 MCG/ KG/MIN 9.594 mls/hr IV . [id number] [facility] Rx#:[id number] Tube Feeding 50 200 30 Other 30 90 Output: Urine 840 365 55 Other: Voiding Method Indwelling Catheter Indwelling Catheter ABP, PAP, CO, CI - Last Documented Arterial Blood Pressure 114/53 - Constitutional General appearance: Present: obese - EENT Eyes: Absent: abnormal pupil, anicteric sclerae - Neck Neck: Absent: lymphadenopathy - Respiratory Respiratory: bilateral: diminished - Cardiovascular Rhythm: regular Heart sounds: normal: S1, S2 Abnormal Heart Sounds: Absent: S3 Gallop - Gastrointestinal General gastrointestinal: Present: soft. Absent: tenderness - Psychiatric Psychiatric: Absent: A&O x's 3 - Labs CBC & Chem 7: 09/12/23 04:00 09/12/23 04:00 Labs: Abnormal Lab Results - Last 24 Hours (Table) 09/11/23 09/11/23 09/11/23 Range/Units 08:59 12:32 12:40 Hgb (13.0-17.5) gm/dL Hct (39.0-53.0) % MCV (80.0-100.0) fL ABG pH (7.35-7.45) ABG pO2 (83-108) mmHg ABG HCO3 (21-25) mmol/L ABG Total CO2 (19-24) mmol/L ABG O2 Saturation (94-97) % Potassium 3.1 L (3.5-5.1) mmol/L BUN (9-20) mg/dL Creatinine (0.66-1.25) mg/dL Glucose (74-99) mg/dL POC Glucose (mg/dL) 227 H 171 H (70-110) mg/dL 09/11/23 09/11/23 09/12/23 Range/Units 16:08 19:47 00:25 Hgb (13.0-17.5) gm/dL Hct (39.0-53.0) % MCV (80.0-100.0) fL ABG pH (7.35-7.45) ABG pO2 (83-108) mmHg ABG HCO3 (21-25) mmol/L ABG Total CO2 (19-24) mmol/L ABG O2 Saturation (94-97) % Potassium (3.5-5.1) mmol/L BUN (9-20) mg/dL Creatinine (0.66-1.25) mg/dL Glucose (74-99) mg/dL POC Glucose (mg/dL) 187 H 193 H 184 H (70-110) mg/dL 09/12/23 09/12/23 09/12/23 Range/Units 03:55 04:00 04:00 Hgb 12.7 L (13.0-17.5) gm/dL Hct 38.7 L (39.0-53.0) % MCV 76.7 L (80.0-100.0) fL ABG pH (7.35-7.45) ABG pO2 (83-108) mmHg ABG HCO3 (21-25) mmol/L ABG Total CO2 (19-24) mmol/L ABG O2 Saturation (94-97) % Potassium 3.0 L (3.5-5.1) mmol/L BUN 21 H (9-20) mg/dL Creatinine 1.28 H (0.66-1.25) mg/dL Glucose 146 H (74-99) mg/dL POC Glucose (mg/dL) 159 H (70-110) mg/dL 09/12/23 Range/Units 04:37 Hgb (13.0-17.5) gm/dL Hct (39.0-53.0) % MCV (80.0-100.0) fL ABG pH 7.49 H (7.35-7.45) ABG pO2 169 H (83-108) mmHg ABG HCO3 30 H (21-25) mmol/L ABG Total CO2 31 H (19-24) mmol/L ABG O2 Saturation 98.2 H (94-97) % Potassium (3.5-5.1) mmol/L BUN (9-20) mg/dL Creatinine (0.66-1.25) mg/dL Glucose (74-99) mg/dL POC Glucose (mg/dL) (70-110) mg/dL Microbiology - Last 24 Hours (Table) 09/10/23 17:15 Gram Stain - Preliminary Sputum Assessment and Plan (1) Cardiac arrest Current Visit: Yes Status: Acute Code(s): I46.9 - CARDIAC ARREST, CAUSE UNSPECIFIED SNOMED Code(s): 028512881 (2) Diabetes mellitus Current Visit: Yes Status: Acute Code(s): E11.9 - TYPE 2 DIABETES MELLITUS WITHOUT COMPLICATIONS SNOMED Code(s): 91331722 (3) Head injury Current Visit: Yes Status: Acute Code(s): S09.90XA - UNSPECIFIED INJURY OF HEAD, INITIAL ENCOUNTER SNOMED Code(s): 82538385 (4) Hyperlipidemia Current Visit: Yes Status: Acute Code(s): E78.5 - HYPERLIPIDEMIA, UN SPECIFIED SNOMED Code(s): 20095994 (5) Hypertension Current Visit: Yes Status: Acute Code(s): I10 - ESSENTIAL (PRIMARY) HYPERTENSION SNOMED Code(s): 12441519 (6) Seizure Current Visit: Yes Status: Acute Code(s): R56.9 - UNSPECIFIED CONVULSIONS SNOMED Code(s): 12663284 Plan: Continue supportive care. Prognosis is guarded secondary to his EEG. Check CBC and CMP in AM. Empiric treatment for left lower lobe infiltrate.
[2023-09-12 09:01] LABS: Glucose,Whole Blood 184 mg/dL (70-110)
--- NOTE | 2023-09-12 09:10 | PN ---
PROGRESS NOTE SUBJECTIVE: Mr. Andrea Triplett is a gentleman, who had a seizure and then had a fall and since then seems to also had a postictal bradycardia requiring some CPR. However, echo revealed systolic function is preserved. There is severe concentric LVH. No significant pulmonary hypertension. Cardiac-raana, I do not believe there are any primary problems. He does have underlying hypertension, hyperlipidemia. I have no new specific suggestions at this time from the cardiac standpoint. We will correct his potassium and magnesium level. He has hypertension, hyperlipidemia, diabetes, and previous intracranial aneurysm for which he had clipping. I would recommend that we continue supportive care and probably see how he does neurologically with a sedation holiday. No aggressive intervention cardiac-arana. His LVH with what seems to be a severe concentric hypertrophy may not necessarily be a contributing factor to the event that happened. It appears more or less that he had a seizure followed by postictal bradycardia type picture requiring CPR. However, we will continue to follow. No new suggestions. Advised electrolyte homeostasis and recheck his potassium and magnesium level. OBJECTIVE: VITALS: Stable. HEART: S1, S2 heard normally. The patient is intubated, deeply sedated. LUNGS: Breath sounds are audible assisted by the ventilator. LOWER EXTREMITIES: Reveal diminished pulses. CENTRAL NERVOUS SYSTEM: Assessment was not performed. Prognosis remains guarded. MMODL / IJN: [id number] /
--- NOTE | 2023-09-12 09:59 | P.PN ---
Subjective Progress Note Date: 09/11/23 Patient was seen for follow-up. Patient is intubated, sedated on propofol 30 mcg/kg/min. On sedation holiday, nurse mentioned that patient does try to wake up. Objective - Vital Signs Vital signs: Vital Signs Temp 99.0 F 09/11/23 15:00 Pulse 64 09/11/23 15:00 Resp 14 09/11/23 15:00 BP 106/60 09/11/23 12:00 Pulse Ox 99 09/11/23 15:00 FiO2 50 09/11/23 15:43 Intake & Output 09/10/23 09/11/23 09/11/23 18:59 06:59 18:59 Intake Total 21.747 366.143 488.429 Output Total 1210 675 Balance 21.747 -843.857 -186.571 Weight 106.594 kg 119.7 kg 119.7 kg Intake: Intake, IV Titration 21.747 366.143 438.429 Amount Clevidipine Butyrate 25 4.600 mg In Empty Bag 1 bag @ 1 MG/HR 2 mls/hr IV .Q24H [facility] Rx#:[id number] Magnesium Sulfate-D5w Pmx 100 1 gm In Dextrose/Water 1 100ml.bag @ 100 mls/hr IVPB Q1H [facility] Rx#: [id number] Potassium Chloride 20 meq 200 In Water For Injection 1 100ml.bag @ 50 mls/hr IVPB Q2H [facility] Rx#: [id number] propofoL 1,000 mg In 21.747 361.543 138.429 Empty Bag 1 bag @ 15 MCG/ KG/MIN 9.594 mls/hr IV . [id number] [facility] Rx#:[id number] Tube Feeding 20 Other 30 Output: Urine 1210 675 Other: Voiding Method Indwelling Catheter Indwelling Catheter ABP, PAP, CO, CI - Last Documented Arterial Blood Pressure 137/62 - Exam Patient is intubated, sedated. Patient is breathing over the ventilator, he has a good cough and gag reflex. He withdraws to pain. Patient on propofol 35 mcg/kg/min. Patient's pupils appears equal, although sometimes appears slightly unequal. Oculocephalics are mildly present. - Labs CBC & Chem 7: 09/12/23 04:00 09/12/23 09:00 Labs: Abnormal Lab Results - Last 24 Hours (Table) 09/10/23 09/10/23 09/10/23 Range/Units 16:03 16:03 16:03 WBC 16.8 H (3.8-10.6) k/uL RBC 6.27 H (4.30-5.90) m/uL MCV (80.0-100.0) fL MCH (25.0-35.0) pg Plt Count 454 H (150-450) k/uL Neutrophils # (1.3-7.7) k/uL Lymphocytes # (Manual) 10.75 H (1.0-4.8) k/uL Monocytes # (Manual) 1.51 H (0-1.0) k/uL ABG pH (7.35-7.45) ABG pCO2 (35-45) mmHg ABG pO2 (83-108) mmHg ABG Total CO2 (19-24) mmol/L ABG O2 Saturation (94-97) % Potassium (3.5-5.1) mmol/L Carbon Dioxide 21 L (22-30) mmol/L Glucose 325 H (74-99) mg/dL POC Glucose (mg/dL) (70-110) mg/dL Hemoglobin A1c (<=6.0) % Plasma Lactic Acid Case 6.1 H* (0.7-2.0) mmol/L Magnesium (1.6-2.3) mg/dL AST 580 H (17-59) U/L ALT 589 H (4-49) U/L Total Protein 8.5 H (6.3-8.2) g/dL U Marijuana (THC) Screen (NotDetected) 09/10/23 09/10/23 09/10/23 Range/Units 16:09 16:11 17:26 WBC (3.8-10.6) k/uL RBC (4.30-5.90) m/uL MCV (80.0-100.0) fL MCH (25.0-35.0) pg Plt Count (150-450) k/uL Neutrophils # (1.3-7.7) k/uL Lymphocytes # (Manual) (1.0-4.8) k/uL Monocytes # (Manual) (0-1.0) k/uL ABG pH (7.35-7.45) ABG pCO2 (35-45) mmHg ABG pO2 79 L (83-108) mmHg ABG Total CO2 26 H (19-24) mmol/L ABG O2 Saturation 93.9 L (94-97) % Potassium (3.5-5.1) mmol/L Carbon Dioxide (22-30) mmol/L Glucose (74-99) mg/dL POC Glucose (mg/dL) 297 H (70-110) mg/dL Hemoglobin A1c (<=6.0) % Plasma Lactic Acid Case (0.7-2.0) mmol/L Magnesium (1.6-2.3) mg/dL AST (17-59) U/L ALT (4-49) U/L Total Protein (6.3-8.2) g/dL U Marijuana (THC) Screen Detected H (NotDetected) 09/10/23 09/10/23 09/10/23 Range/Units 20:28 20:58 23:59 WBC (3.8-10.6) k/uL RBC (4.30-5.90) m/uL MCV (80.0-100.0) fL MCH (25.0-35.0) pg Plt Count (150-450) k/uL Neutrophils # (1.3-7.7) k/uL Lymphocytes # (Manual) (1.0-4.8) k/uL Monocytes # (Manual) (0-1.0) k/uL ABG pH (7.35-7.45) ABG pCO2 (35-45) mmHg ABG pO2 (83-108) mmHg ABG Total CO2 (19-24) mmol/L ABG O2 Saturation (94-97) % Potassium (3.5-5.1) mmol/L Carbon Dioxide (22-30) mmol/L Glucose (74-99) mg/dL POC Glucose (mg/dL) 255 H 296 H (70-110) mg/dL Hemoglobin A1c (<=6.0) % Plasma Lactic Acid Case 2.3 H* (0.7-2.0) mmol/L Magnesium (1.6-2.3) mg/dL AST (17-59) U/L ALT (4-49) U/L Total Protein (6.3-8.2) g/dL U Marijuana (THC) Screen (NotDetected) 09/11/23 09/11/23 09/11/23 Range/Units 00:27 03:46 03:46 WBC 11.5 H (3.8-10.6) k/uL RBC (4.30-5.90) m/uL MCV 77.0 L (80.0-100.0) fL MCH 24.7 L (25.0-35.0) pg Plt Count (150-450) k/uL Neutrophils # 9.1 H (1.3-7.7) k/uL Lymphocytes # (Manual) (1.0-4.8) k/uL Monocytes # (Manual) (0-1.0) k/uL ABG pH (7.35-7.45) ABG pCO2 (35-45) mmHg ABG pO2 (83-108) mmHg ABG Total CO2 (19-24) mmol/L ABG O2 Saturation (94-97) % Potassium (3.5-5.1) mmol/L Carbon Dioxide (22-30) mmol/L Glucose (74-99) mg/dL POC Glucose (mg/dL) (70-110) mg/dL Hemoglobin A1c 9.9 H (<=6.0) % Plasma Lactic Acid Case 2.1 H* (0.7-2.0) mmol/L Magnesium (1.6-2.3) mg/dL AST (17-59) U/L ALT (4-49) U/L Total Protein (6.3-8.2) g/dL U Marijuana (THC) Screen (NotDetected) 09/11/23 09/11/23 09/11/23 Range/Units 03:46 03:46 05:06 WBC (3.8-10.6) k/uL RBC (4.30-5.90) m/uL MCV (80.0-100.0) fL MCH (25.0-35.0) pg Plt Count (150-450) k/uL Neutrophils # (1.3-7.7) k/uL Lymphocytes # (Manual) (1.0-4.8) k/uL Monocytes # (Manual) (0-1.0) k/uL ABG pH (7.35-7.45) ABG pCO2 (35-45) mmHg ABG pO2 (83-108) mmHg ABG Total CO2 (19-24) mmol/L ABG O2 Saturation (94-97) % Potassium 3.3 L (3.5-5.1) mmol/L Carbon Dioxide 21 L (22-30) mmol/L Glucose 222 H (74-99) mg/dL POC Glucose (mg/dL) 216 H (70-110) mg/dL Hemoglobin A1c (<=6.0) % Plasma Lactic Acid Case (0.7-2.0) mmol/L Magnesium 1.5 L (1.6-2.3) mg/dL AST 294 H (17-59) U/L ALT 366 H (4-49) U/L Total Protein (6.3-8.2) g/dL U Marijuana (THC) Screen (NotDetected) 09/11/23 09/11/23 09/11/23 Range/Units 06:00 08:59 12:32 WBC (3.8-10.6) k/uL RBC (4.30-5.90) m/uL MCV (80.0-100.0) fL MCH (25.0-35.0) pg Plt Count (150-450) k/uL Neutrophils # (1.3-7.7) k/uL Lymphocytes # (Manual) (1.0-4.8) k/uL Monocytes # (Manual) (0-1.0) k/uL ABG pH 7.63 H* (7.35-7.45) ABG pCO2 24 L (35-45) mmHg ABG pO2 305 H (83-108) mmHg ABG Total CO2 25 H (19-24) mmol/L ABG O2 Saturation 98.3 H (94-97) % Potassium (3.5-5.1) mmol/L Carbon Dioxide (22-30) mmol/L Glucose (74-99) mg/dL POC Glucose (mg/dL) 227 H 171 H (70-110) mg/dL Hemoglobin A1c (<=6.0) % Plasma Lactic Acid Case (0.7-2.0) mmol/L Magnesium (1.6-2.3) mg/dL AST (17-59) U/L ALT (4-49) U/L Total Protein (6.3-8.2) g/dL U Marijuana (THC) Screen (NotDetected) 09/11/23 Range/Units 12:40 WBC (3.8-10.6) k/uL RBC (4.30-5.90) m/uL MCV (80.0-100.0) fL MCH (25.0-35.0) pg Plt Count (150-450) k/uL Neutrophils # (1.3-7.7) k/uL Lymphocytes # (Manual) (1.0-4.8) k/uL Monocytes # (Manual) (0-1.0) k/uL ABG pH (7.35-7.45) ABG pCO2 (35-45) mmHg ABG pO2 (83-108) mmHg ABG Total CO2 (19-24) mmol/L ABG O2 Saturation (94-97) % Potassium 3.1 L (3.5-5.1) mmol/L Carbon Dioxide (22-30) mmol/L Glucose (74-99) mg/dL POC Glucose (mg/dL) (70-110) mg/dL Hemoglobin A1c (<=6.0) % Plasma Lactic Acid Case (0.7-2.0) mmol/L Magnesium (1.6-2.3) mg/dL AST (17-59) U/L ALT (4-49) U/L Total Protein (6.3-8.2) g/dL U Marijuana (THC) Screen (NotDetected) Microbiology - Last 24 Hours (Table) 09/10/23 17:15 Gram Stain - Preliminary Sputum Assessment and Plan Assessment: * Status post seizure with fall from a standing position, followed by cardiac arrest. According to patient's daughter, the downtime was 4 minutes, although the EMS flowsheet mentions 10 minutes of downtime. * History of cerebral aneurysm, status post endovascular coiling in 2004. 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 Patient off seizure medication for at least a year. * Ventilator dependent respiratory failure, on mechanical ventilation * Possible aspiration pneumonia * Lactic acidosis, secondary to seizure * Diabetes * Hypertension * Hyperlipidemia * Obesity * Marijuana use Plan: * Patient continues to be encephalopathic, but also on sedation. Patient not able to be extubated today. * Patient given loading dose of Keppra 1500 mg in the ER and maintained on Keppra 1000 mg twice daily. * EEG was abnormal due to background slowing of moderate to severe degree. This is suggestive of generalized cerebral dysfunction as can be seen with toxic metabolic encephalopathy related to diffuse structural brain abnormality. Clinical correlation is recommended. No epileptiform activity was seen. * CTA of head and neck revealed no evidence of dissection of the cervical internal carotid arteries or vertebral arteries or any evidence of significant stenosis at the carotid bifurcations. No evidence of intracranial high-grade stenosis or intracranial aneurysm. Hypoplastic right A1 segment. Aneurysmal clip in the anterior communicating artery limits evaluation. * 2D echo was technically difficult study. Severe left ventricular hypertrophy with left ventricular systolic function with EF 50 to 55%. Left atrium mildly increased in volume. * DVT prophylaxis: Heparin 5000 units subcu every 8 hours. Patient also on SCDs. * Telemetry monitoring. * Neurology will follow.
[2023-09-12] MEDS: DEXMEDETOMIDINE/0.9% NACL(PMX) 400 MCG in EMPTY BAG 1 BAG IV SCH (11:07)
[2023-09-12 11:37] LABS: Glucose,Whole Blood 181 mg/dL (70-110)
--- NOTE | 2023-09-12 11:45 | P.PN ---
Subjective Progress Note Date: 09/12/23 This is a 58-year-old male patient was brought in to the emergency department following a cardiac arrest. The patient was in the court [place] and he was noted to have an acute seizure, tonic-clonic in nature that lasted for around 2 to 3 minutes, during which, the patient had stool and urinary incontinence. The patient dropped and hit the back of his head and went unconscious. Subsequently, he was found unconscious and the fire department arrived to the scene and the patient was having agonal breathing and apparently was in asystole. The patient was given CPR for total of 3 minutes and he regained spontaneous circulation. His breathing was still agonal and he was being bagged on the way to the emergency department. In the ED, the patient was intubated immediately. The patient was placed on a mechanical ventilator. The postintubation chest x-ray showed right upper lobe atelectatic changes and ET tube was repositioned. The patient also had cardiomegaly and increased pulm vascular markings bilaterally. CAT scan of the head was done in addition to the CT scan of the cervical spine. The patient was found to have no acute intracranial process. There was some subcutaneous edema near the skull vertex without evidence of any fracture. There was encephalomalacia involving the frontal lobe related to previous surgery given the metallic density that was found in the suprasellar space. Patient had no evidence of any cervical fracture. No evidence of any hemorrhage or mass effect on the warren-white junction was well-differentiated. A metallic clip was seen as mentioned. The upper part of the lung showed bilateral airspace disease consistent with pulmonary edema. I arrived to evaluate this patient in the emergency department. He was placed on propofol and is running at 55 mcg of volume psych: Mechanical ventilation. He was having abdominal bleeding and he was quite tac hypneic. I switched him to pressure control mode and currently is on a pressure control of 25 with a PEEP of 5 and FiO2 of 100% in the rate of 20. Triple-lumen catheter was established in his left IJ. The post line insertion chest x-ray shows no evidence of any complications. No evidence of any pneumothorax. The patient remained hemodynamically stable. No further seizure activity has been noted. He was given IV Keppra in the emergency department and a total of 1.5 g of IV Keppra piggyback was given. No fever. No neck stiffness. WBC count is 16.8 with a hemoglobin of 15.9 and a platelet count of 454. BUN is at 15 with a creatinine of 1.07. Electrolytes are normal. Blood sugars at 325. As for the rest of the labs, the urine drug screen is positive for marijuana, negative for alcohol. Lactic acid level was at 6.1. AST is 580, ALT is 589 with a normal bilirubin and normal alkaline phosphatase. For set of troponin is at 0.024. He was given a dose of Lasix in the emergency department. Upon further discussion with the family, the patient has had a remote history of WARD HELPER aneurysm coiling. No reported seizure activity at least recently and the patient has been taking no antiepileptic medication. The patient has hypertension hyperlipidemia and diabetes mellitus maintained on oral medications. No further history is available at this point in time. No history of any cardiac disease. On today's evaluation of 09/11/2023, the patient is, comfortable, sedated with propofol which is running at 35 mcg/kg/min. The patient remains intubated on mechanical ventilator. He is on a pressure control mode of mechanical ventilation with a rate of 20 and a pressure control of 25 cm of water and affect has been dropped down to 50% with a PEEP of 5. The patient had a blood gas today that showed a pH of 7.63 with a pCO2 of 24 and a pO2 of 35. This is in a vegetative change and will be done accordingly. Chest x-ray shows improvement in the right upper lobe and atelectasis in the pulmonary vascular congestion. Orotracheal tube is in good location. He is afebrile. He is hemodynamically stable. In fact, he was hypertensive overnight and he was started on clevidipine drip and this was ultimately discontinued as the patient's blood pressure normalized. The patient is going to undergo a neurowork-up including a CTA of his brain and an EEG today. Echocardiogram is a lso to be done today. proBNP level was elevated at 2800. Labs from today showed a WBC count 11.5, hemoglobin 15.5 and a platelet count of 333. Sodium is at 137, potassium is at 3.3, BUN is 18 with a creatinine of 1.1. LFTs are improving with an AST of 294 and an ALT of 366. Blood sugars at 227 and the patient remains on insulin sliding scale coverage. IV fluids are currently at KVO. Producing adequate amount of urine output. Lactic acid level has dropped down to 1.6. Neurology has been consulted. On today's evaluation of 07/12/2024, the patient remains intubated on mechanical ventilator. The patient is sedated with propofol running at 45 mcg/kg/min. No seizure activity has been noted. Remains hemodynamically stable. On the mechanical ventilator, he is on pressure control mode at a rate of 14, pressure control of 20, FiO2 40% with a PEEP of 5. Chest x-ray shows no acute abn ormalities.The blood gas showed a pH of 7.49 with a pCO2 of 39 and pO2 of 169. Further workup was done for another CAT scan of the brain that was performed yesterday that showed no acute process. CT angiogram of the brain was also done that showed no significant evidence of dissection of the cervical internal carotid arteries or vertebral arteries. No evidence of any high-grade intracranial stenosis. 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 EEG showed slowing consistent with encephalopathy. No seizure activity has been noted. Meanwhile, the patient also had an echocardiogram that showed left- ventricular ejection fraction of 50 to 55%. There was severe LVH. No significant valvular abnormalities. He is currently afebrile. Hemodynamically stable on no pressors. The patient's blood pressure is under better control. The patient has a BUN of 21 with a creatinine of 1.2. White cell count is 7 with a hemoglobin 12.7 and a platelet count of 291. Remains on Keppra. Clevidipine drip has been discontinued. Objective - Vital Signs Vital signs: Vital Signs Temp 98.5 F 09/12/23 04:00 Pulse 66 09/12/23 08:44 Resp 16 09/12/23 07:00 BP 110/56 09/12/23 07:00 Pulse Ox 99 09/12/23 07:00 FiO2 40 09/12/23 07:32 Intake & Output 09/11/23 09/12/23 09/12/23 18:59 06:59 18:59 Intake Total 586.013 577.083 30 Output Total 840 365 55 Balance -253.987 212.083 -25 Weight 119.7 kg 119 kg Intake: Intake, IV Titration 506.013 287.083 Amount Magnesium Sulfate-D5w Pmx 100 1 gm In Dextrose/Water 1 100ml.bag @ 100 mls/hr IVPB Q1H [facility] Rx#: [id number] Potassium Chloride 20 meq 200 In Water For Injection 1 100ml.bag @ 50 mls/hr IVPB Q2H [facility] Rx#: [id number] propofoL 1,000 mg In 206.013 287.083 Empty Bag 1 bag @ 15 MCG/ KG/MIN 9.594 mls/hr IV . [id number] [facility] Rx#:[id number] Tube Feeding 50 200 30 Other 30 90 Output: Urine 840 365 55 Other: Voiding Method Indwelling Catheter Indwelling Catheter ABP, PAP, CO, CI - Last Documented Arterial Blood Pressure 114/53 - Exam General appearance the patient is calm comfortable, no acute distress Intubated on mechanical ventilator. Orogastric and orotracheal tube is in place. No obvious seizure activity noted. Head exam was generally normal. There was no scleral icterus or corneal arcus. Mucous membranes were moist. Neck was supple and without jugular venous distension, thyromegaly, or carotid bruits. Carotids were easily palpable bilaterally. There was no adenopathy. Lungs were clear to auscultation and percussion, and with normal diaphragmatic excursion. No wheezes or rales were noted. Cardiac exam revealed the PMI to be normally situated and sized. The rhythm was regular and no extrasystoles were noted during several minutes of auscultation. The first and second heart sounds were normal and physiologic splitting of the second heart sound was noted. There were no murmurs, rubs, clicks, or gallops. Abdominal exam revealed normal bowel sounds. The abdomen was soft, non-tender, and without masses, organomegaly, or appreciable enlargement of the abdominal aorta. Examination of the extremities revealed easily palpable radial, femoral and pedal pulses. There was no cyanosis, clubbing or edema. Examination of the skin revealed no evidence of significant rashes, suspicious appearing nevi or other concerning lesions. Neurologically, the patient is sedated, pupils are equal reactive to light around 3 mm in size. No nystagmus. No facial asymmetry. Positive cough and gag. Sensorimotor function cannot be assessed. No Babinski. No clonus. - Labs CBC & Chem 7: 09/12/23 04:00 09/12/23 09:00 Labs: Abnormal Lab Results - Last 24 Hours (Table) 09/11/23 09/11/23 09/11/23 Range/Units 08:59 12:32 12:40 Hgb (13.0-17.5) gm/dL Hct (39.0-53.0) % MCV (80.0-100.0) fL ABG pH (7.35-7.45) ABG pO2 (83-108) mmHg ABG HCO3 (21-25) mmol/L ABG Total CO2 (19-24) mmol/L ABG O2 Saturation (94-97) % Potassium 3.1 L (3.5-5.1) mmol/L BUN (9-20) mg/dL Creatinine (0.66-1.25) mg/dL Glucose (74-99) mg/dL POC Glucose (mg/dL) 227 H 171 H (70-110) mg/dL 09/11/23 09/11/23 09/12/23 Range/Units 16:08 19:47 00:25 Hgb (13.0-17.5) gm/dL Hct (39.0-53.0) % MCV (80.0-100.0) fL ABG pH (7.35-7.45) ABG pO2 (83-108) mmHg ABG HCO3 (21-25) mmol/L ABG Total CO2 (19-24) mmol/L ABG O2 Saturation (94-97) % Potassium (3.5-5.1) mmol/L BUN (9-20) mg/dL Creatinine (0.66-1.25) mg/dL Glucose (74-99) mg/dL POC Glucose (mg/dL) 187 H 193 H 184 H (70-110) mg/dL 09/12/23 09/12/23 09/12/23 Range/Units 03:55 04:00 04:00 Hgb 12.7 L (13.0-17.5) gm/dL Hct 38.7 L (39.0-53.0) % MCV 76.7 L (80.0-100.0) fL ABG pH (7.35-7.45) ABG pO2 (83-108) mmHg ABG HCO3 (21-25) mmol/L ABG Total CO2 (19-24) mmol/L ABG O2 Saturation (94-97) % Potassium 3.0 L (3.5-5.1) mmol/L BUN 21 H (9-20) mg/dL Creatinine 1.28 H (0.66-1.25) mg/dL Glucose 146 H (74-99) mg/dL POC Glucose (mg/dL) 159 H (70-110) mg/dL 09/12/23 Range/Units 04:37 Hgb (13.0-17.5) gm/dL Hct (39.0-53.0) % MCV (80.0-100.0) fL ABG pH 7.49 H (7.35-7.45) ABG pO2 169 H (83-108) mmHg ABG HCO3 30 H (21-25) mmol/L ABG Total CO2 31 H (19-24) mmol/L ABG O2 Saturation 98.2 H (94-97) % Potassium (3.5-5.1) mmol/L BUN (9-20) mg/dL Creatinine (0.66-1.25) mg/dL Glucose (74-99) mg/dL POC Glucose (mg/dL) (70-110) mg/dL Microbiology - Last 24 Hours (Table) 09/10/23 17:15 Gram Stain - Preliminary Sputum Assessment and Plan Plan: New onset seizures, witnessed, lasted for few minutes and the seizure spontaneously aborted. The patient started on IV Keppra in the emergency department. CAT scan of the brain shows no acute neurologic process. No clinical seizures over the past 24 hours or since intubation. The patient's EEG showed no active seizures. CTA of the brain showed no intracranial artery stenosis or aneurysmal dilatation or dissection. Repeat CAT scan of the brain was also negative. The patient remains intubated and mechanically ventilated on propofol. The patient also is on Keppra. Asystole/cardiac arrest with a downtime a few minutes with return of spontaneous regulation post CPR Acute hypoxic respiratory failure secondary to above, the patient is currently on pressure control mode of mechanical ventilation. Chest x-ray is within normal limits. Oxygenation is improved. Acute lactic acidosis secondary to above, improving History of WARD HELPER aneurysm post coiling Obesity with a BMI of 32 Diabetes mellitus type 2 Hypertension Hyperlipidemia Plan Wean the patient off the propofol and assess the patient's mental status. If the patient demonstrates adequate mentation, the patient may be a candidate for further weaning Continue IV Keppra Ativan on as-needed basis for agitation and or seizure activity EEG was negative for any seizure activity Repeat CAT scan of the brain and CT of the brain was noted. No ongoing clinical seizure activity Neurology consultation has been appreciated Hemodynamically stable Enteral feeding for nutritional support NovoLog insulin for sliding scale coverage and blood sugar control Heparin subcu for DVT prophylaxis Will continue to follow. Condition is critical. Is a critical care evaluation that was done more than 30 minutes. Time with Patient: Greater than 30
[2023-09-12] MEDS: SCOPOLAMINE 1 MG/72 HR PATCH TRANSDERM SCH (13:45)
--- NOTE | 2023-09-12 15:31 | P.PCN ---
Date of Procedure: 09/11/23 Preoperative Diagnosis: Cardiac arrest Postoperative Diagnosis: Cardiac arrest Procedure(s) Performed: Arterial line insertion Anesthesia: local Surgeon: Magaly Rivera Estimated Blood Loss (ml): 0 Pathology: other Condition: critical Disposition: ICU Operative Findings: Indication: Hemodynamic monitoring. A time-out was completed verifying correct patient, procedure, site, positioning, and implant(s) or special equipment if applicable. Allens test was performed to ensure adequate perfusion. The patients right radial was prepped and draped in sterile fashion. 1% Lidocaine was used to anesthetize the area. An 18G Arrow arterial line was introduced into the right radial artery. The catheter was threaded over the guide wire and the needle was removed with appropriate pulsatile blood return. Blood loss was minimal. The catheter was then sutured in place to the skin and a sterile dressing applied. Perfusion to the extremity distal to the point of catheter insertion was checked and found to be adequate. The patient tolerated the procedure well and there were no complications.
[2023-09-12] MEDS: PIPERACILLIN-TAZOBACTAM 3.375 GM in SODIUM CHLORIDE 0.9% 100 ML IVPB SCH (15:45)
[2023-09-12 16:00] LABS: Glucose,Whole Blood 209 mg/dL (70-110)
[2023-09-12 20:02] LABS: Glucose,Whole Blood 218 mg/dL (70-110)
[2023-09-12 23:54] LABS: Glucose,Whole Blood 232 mg/dL (70-110)
[2023-09-13] MEDS: POTASSIUM BICARBONATE/CIT AC 20 MEQ TABLET.EFF NG-TUBE SCH ×2 (01:13→06:55)
[2023-09-13 04:37] LABS: Glucose,Whole Blood 224 mg/dL (70-110)
[2023-09-13 05:00] LABS: Basophils # (A) 0.1 k/uL (0-0.2); Basophils % (A) 1 %; Eosinophils # (A) 0.1 k/uL (0-0.7); Eosinophils % (A) 1 %; HGB 12.2 gm/dL (13.0-17.5); Lymphocytes # (A) 1.8 k/uL (1.0-4.8); Lymphocytes % (A) 28 %; MCH 25.6 pg (25.0-35.0); MCV 77.8 fL (80.0-100.0); Mean Platelet Volume 7.7; Monocytes # (A) 0.5 k/uL (0-1.0); Monocytes % (A) 7 %; Neutrophils % (A) 62 %; Platelet Count 255 k/uL (150-450); RBC 4.75 m/uL (4.30-5.90); RDW 14.6 % (11.5-15.5); WBC 6.5 k/uL (3.8-10.6)
[2023-09-13 05:22] LABS: African American GFR (CKD) 72 (>60 ml/min/1.73 sqM); Anion Gap 6 mmol/L; Blood Urea Nitrogen 23 mg/dL (9-20); Calcium 8.2 mg/dL (8.4-10.2); Carbon Dioxide 30 mmol/L (22-30); Chloride 103 mmol/L (98-107); Glucose 230 mg/dL (74-99); Non-African American GFR(CKD) 62 (>60 ml/min/1.73 sqM); Potassium 3.7 mmol/L (3.5-5.1); Sodium 139 mmol/L (137-145)
[2023-09-13 06:29] LABS: ABG Base Excess 8.9 mmol/L; ABG HCO3 32 mmol/L (21-25); ABG Oxygen Saturation 97.4 % (94-97); ABG PCO2 42 mmHg (35-45); ABG PO2 122 mmHg (83-108); ABG TCO2 33 mmol/L (19-24)
--- NOTE | 2023-09-13 08:06 | XR ---
EXAMINATION TYPE: XR chest 1V portable DATE OF EXAM: 09/13/2023 COMPARISON: 09/12/2019 HISTORY: Shortness of breath TECHNIQUE: Single frontal view of the chest is obtained. FINDINGS: NG tube and feeding tube stable central lines There now is left lower lobe infiltrate and small effusion. Heart is enlarged. Atherosclerotic change aorta. No overt failure. Arthropathy of the shoulders. Atherosclerotic change aorta. IMPRESSION: Left lower lobe infiltrate and small effusion stable.
[2023-09-13 08:50] LABS: Glucose,Whole Blood 225 mg/dL (70-110)
--- NOTE | 2023-09-13 08:58 | PN ---
PROGRESS NOTE SUBJECTIVE: This is a gentleman who had a seizure followed by a postictal related bradycardia [place] He had sort of a sedation holiday yesterday without much improvement. He seems to have become very hypertensive as the sedation wore off. He is back on sedation again. He has hypertension, type 2 diabetes and hyperlipidemia. Echo revealed preserved ejection fraction with severe concentric LVH. From a cardiac standpoint, he is maintaining sinus rhythm. He remains hemodynamically stable. There is no specific contributing factor to his current status. I suspect this is all a neurological event. I will await further input from Neurology. The patient's overall prognosis remains poor. PHYSICAL EXAMINATION: VITAL SIGNS: Blood pressure is 118/70, pulse rate 70 per minute, heart rate in the mid 60s. HEART: S1, S2 heard normally. Short systolic murmur audible. LUNGS: Reveal ventilator assisted breath sounds. ABDOMEN: Unchanged. LOWER EXTREMITIES: Unchanged. RECOMMENDATIONS: From a cardiac standpoint, no specific recommendations, will await input from Neurology. Continue supportive care. MMODL / IJN: [id number] /
--- NOTE | 2023-09-13 09:13 | P.PN ---
Subjective Progress Note Date: 09/12/23 Patient was seen for follow-up. Patient's daughter was also present. Patient is intubated, sedated on propofol 45 mcg/kg/min. On sedation holiday, when propofol was decreased to 10 mcg/kg/min, patient's heart rate went up to 190, could not tolerate further therefore was placed back on sedation. Per nurse report, she mentioned that patient does try to wake up, opens eyes and was slightly tracking but did not follow directions. Patient is not ready to be weaned off ventilator therefore not placed on CPAP. Patient has a low-grade fever therefore Zosyn was added. Objective - Vital Signs Vital signs: Vital Signs Temp 99.5 F 09/12/23 12:00 Pulse 73 09/12/23 14:00 Resp 15 09/12/23 14:00 BP 105/66 09/12/23 14:00 Pulse Ox 97 09/12/23 14:00 FiO2 40 09/12/23 12:00 Intake & Output 09/11/23 09/12/23 09/12/23 18:59 06:59 18:59 Intake Total 586.013 577.083 518.000 Output Total 840 365 210 Balance -253.987 212.083 308.000 Weight 119.7 kg 119 kg Intake: Intake, IV Titration 506.013 287.083 200.000 Amount Magnesium Sulfate-D5w Pmx 100 1 gm In Dextrose/Water 1 100ml.bag @ 100 mls/hr IVPB Q1H [facility] Rx#: [id number] Potassium Chloride 20 meq 200 In Water For Injection 1 100ml.bag @ 50 mls/hr IVPB Q2H [facility] Rx#: [id number] propofoL 1,000 mg In 206.013 287.083 200.000 Empty Bag 1 bag @ 15 MCG/ KG/MIN 9.594 mls/hr IV . [id number] [facility] Rx#:[id number] Tube Feeding 50 200 258 Other 30 90 60 Output: Urine 840 365 210 Other: Voiding Method Indwelling Catheter Indwelling Catheter Indwelling Catheter ABP, PAP, CO, CI - Last Documented Arterial Blood Pressure 128/53 - Exam Patient is intubated, sedated. Patient is breathing over the ventilator, he has a good cough and gag reflex. He withdraws to pain. Patient on propofol 45 mcg/kg/min. Patient's pupils appears equal. Oculocephalics are mildly present. - Labs CBC & Chem 7: 09/13/23 04:30 09/13/23 04:30 Labs: Abnormal Lab Results - Last 24 Hours (Table) 09/11/23 09/11/23 09/12/23 Range/Units 16:08 19:47 00:25 Hgb (13.0-17.5) gm/dL Hct (39.0-53.0) % MCV (80.0-100.0) fL ABG pH (7.35-7.45) ABG pO2 (83-108) mmHg ABG HCO3 (21-25) mmol/L ABG Total CO2 (19-24) mmol/L ABG O2 Saturation (94-97) % Potassium (3.5-5.1) mmol/L BUN (9-20) mg/dL Creatinine (0.66-1.25) mg/dL Glucose (74-99) mg/dL POC Glucose (mg/dL) 187 H 193 H 184 H (70-110) mg/dL 09/12/23 09/12/23 09/12/23 Range/Units 03:55 04:00 04:00 Hgb 12.7 L (13.0-17.5) gm/dL Hct 38.7 L (39.0-53.0) % MCV 76.7 L (80.0-100.0) fL ABG pH (7.35-7.45) ABG pO2 (83-108) mmHg ABG HCO3 (21-25) mmol/L ABG Total CO2 (19-24) mmol/L ABG O2 Saturation (94-97) % Potassium 3.0 L (3.5-5.1) mmol/L BUN 21 H (9-20) mg/dL Creatinine 1.28 H (0.66-1.25) mg/dL Glucose 146 H (74-99) mg/dL POC Glucose (mg/dL) 159 H (70-110) mg/dL 09/12/23 09/12/23 09/12/23 Range/Units 04:37 08:56 11:36 Hgb (13.0-17.5) gm/dL Hct (39.0-53.0) % MCV (80.0-100.0) fL ABG pH 7.49 H (7.35-7.45) ABG pO2 169 H (83-108) mmHg ABG HCO3 30 H (21-25) mmol/L ABG Total CO2 31 H (19-24) mmol/L ABG O2 Saturation 98.2 H (94-97) % Potassium (3.5-5.1) mmol/L BUN (9-20) mg/dL Creatinine (0.66-1.25) mg/dL Glucose (74-99) mg/dL POC Glucose (mg/dL) 184 H 181 H (70-110) mg/dL Microbiology - Last 24 Hours (Table) 09/10/23 17:15 Gram Stain - Preliminary Sputum Sputum Culture - Preliminary Assessment and Plan Assessment: * Status post seizure with fall from a standing position, followed by cardiac arrest. According to patient's daughter, the downtime was 4 minutes, although the EMS flowsheet mentions 10 minutes of downtime. * History of cerebral aneurysm, status post endovascular coiling in 2004. 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 Patient off seizure medication for at least a year. * Ventilator dependent respiratory failure, on mechanical ventilation * Possible aspiration pneumonia, chest x-ray showing left lower lobe infiltrate * Lactic acidosis, secondary to seizure * Diabetes * Hypertension * Hyperlipidemia * Obesity * Marijuana use Plan: * Patient continues to be encephalopathic, but also on sedation. Patient not able to be extubated today. With sedation holiday, patient did wake up and slightly tracking. * Patient given loading dose of Keppra 1500 mg in the ER and maintained on Keppra 1000 mg twice daily. * EEG was abnormal due to background slowing of moderate to severe degree. This is suggestive of generalized cerebral dysfunction as can be seen with toxic metabolic encephalopathy related to diffuse structural brain abnormality. Clinical correlation is recommended. No epileptiform activity was seen. * CTA of head and neck revealed no evidence of dissection of the cervical internal carotid arteries or vertebral arteries or any evidence of significant stenosis at the carotid bifurcations. No evidence of intracranial high-grade stenosis or intracranial aneurysm. Hypoplastic right A1 segment. Aneurysmal clip in the anterior communicating artery limits evaluation. * 2D echo was technically difficult study. Severe left ventricular hypertrophy with left ventricular systolic function with EF 50 to 55%. Left atrium mildly increased in volume. * Patient started on Zosyn for possible aspiration pneumonia. Chest x-ray also showed left lower lobe infiltrate. * DVT prophylaxis: Heparin 5000 units subcu every 8 hours. Patient also on SC Ds. * Telemetry monitoring.
[2023-09-13 11:49] LABS: Glucose,Whole Blood 251 mg/dL (70-110)
--- NOTE | 2023-09-13 12:02 | P.PN ---
Subjective Progress Note Date: 09/13/23 This is a 58-year-old male patient was brought in to the emergency department following a cardiac arrest. The patient was in the court house and he was noted to have an acute seizure, tonic-clonic in nature that lasted for around 2 to 3 minutes, during which, the patient had stool and urinary incontinence. The patient dropped and hit the back of his head and went unconscious. Subsequently, he was found unconscious and the fire department arrived to the scene and the patient was having agonal breathing and apparently was in asystole. The patient was given CPR for total of 3 minutes and he regained spontaneous circulation. His breathing was still agonal and he was being bagged on the way to the emergency department. In the ED, the patient was intubated immediately. The patient was placed on a mechanical ventilator. The postintubation chest x-ray showed right upper lobe atelectatic changes and ET tube was repositioned. The patient also had cardiomegaly and increased pulm vascular markings bilaterally. CAT scan of the head was done in addition to the CT scan of the cervical spine. The patient was found to have no acute intracranial process. There was some subcutaneous edema near the skull vertex without evidence of any fracture. There was encephalomalacia involving the frontal lobe related to previous surgery given the metallic density that was found in the suprasellar space. Patient had no evidence of any cervical fracture. No evidence of any hemorrhage or mass effect on the warren-white junction was well-differentiated. A metallic clip was seen as mentioned. The upper part of the lung showed bilateral airspace disease consistent with pulmonary edema. I arrived to evaluate this patient in the emergency department. He was placed on propofol and is running at 55 mcg of volume psych: Mechanical ventilation. He was having abdominal bleeding and he was quite tac hypneic. I switched him to pressure control mode and currently is on a pressure control of 25 with a PEEP of 5 and FiO2 of 100% in the rate of 20. Triple-lumen catheter was established in his left IJ. The post line insertion chest x-ray shows no evidence of any complications. No evidence of any pneumothorax. The patient remained hemodynamically stable. No further seizure activity has been noted. He was given IV Keppra in the emergency department and a total of 1.5 g of IV Keppra piggyback was given. No fever. No neck stiffness. WBC count is 16.8 with a hemoglobin of 15.9 and a platelet count of 454. BUN is at 15 with a creatinine of 1.07. Electrolytes are normal. Blood sugars at 325. As for the rest of the labs, the urine drug screen is positive for marijuana, negative for alcohol. Lactic acid level was at 6.1. AST is 580, ALT is 589 with a normal bilirubin and normal alkaline phosphatase. For set of troponin is at 0.024. He was given a dose of Lasix in the emergency department. Upon further discussion with the family, the patient has had a remote history of [employer]IST[employer] aneurysm coiling. No reported seizure activity at least recently and the patient has been taking no antiepileptic medication. The patient has hypertension hyperlipidemia and diabetes mellitus maintained on oral medications. No further history is available at this point in time. No history of any cardiac disease. On today's evaluation of 09/11/2023, the patient is, comfortable, sedated with propofol which is running at 35 mcg/kg/min. The patient remains intubated on mechanical ventilator. He is on a pressure control mode of mechanical ventilation with a rate of 20 and a pressure control of 25 cm of water and affect has been dropped down to 50% with a PEEP of 5. The patient had a blood gas today that showed a pH of 7.63 with a pCO2 of 24 and a pO2 of 35. This is in a vegetative change and will be done accordingly. Chest x-ray shows improvement in the right upper lobe and atelectasis in the pulmonary vascular congestion. Orotracheal tube is in good location. He is afebrile. He is hemodynamically stable. In fact, he was hypertensive overnight and he was started on clevidipine drip and this was ultimately discontinued as the patient's blood pressure normalized. The patient is going to undergo a neurowork-up including a CTA of his brain and an EEG today. Echocardiogram is a lso to be done today. proBNP level was elevated at 2800. Labs from today showed a WBC count 11.5, hemoglobin 15.5 and a platelet count of 333. Sodium is at 137, potassium is at 3.3, BUN is 18 with a creatinine of 1.1. LFTs are improving with an AST of 294 and an ALT of 366. Blood sugars at 227 and the patient remains on insulin sliding scale coverage. IV fluids are currently at KVO. Producing adequate amount of urine output. Lactic acid level has dropped down to 1.6. Neurology has been consulted. On today's evaluation of 07/12/2024, the patient remains intubated on mechanical ventilator. The patient is sedated with propofol running at 45 mcg/kg/min. No seizure activity has been noted. Remains hemodynamically stable. On the mechanical ventilator, he is on pressure control mode at a rate of 14, pressure control of 20, FiO2 40% with a PEEP of 5. Chest x-ray shows no acute abn ormalities.The blood gas showed a pH of 7.49 with a pCO2 of 39 and pO2 of 169. Further workup was done for another CAT scan of the brain that was performed yesterday that showed no acute process. CT angiogram of the brain was also done that showed no significant evidence of dissection of the cervical internal carotid arteries or vertebral arteries. No evidence of any high-grade intracranial stenosis. 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 EEG showed slowing consistent with encephalopathy. No seizure activity has been noted. Meanwhile, the patient also had an echocardiogram that showed left- ventricular ejection fraction of 50 to 55%. There was severe LVH. No significant valvular abnormalities. He is currently afebrile. Hemodynamically stable on no pressors. The patient's blood pressure is under better control. The patient has a BUN of 21 with a creatinine of 1.2. White cell count is 7 with a hemoglobin 12.7 and a platelet count of 291. Remains on Keppra. Clevidipine drip has been discontinued. On today's evaluation of 07/13/2024, the patient is being seen for a follow-up. Remains intubated on mechanical ventilator. Sedation holiday was given to this patient yesterday. He failed as the patient was getting restless and agitated hypertensive and he developed excessive amount of respiratory secretions to the point where the sedation holiday had to be discontinued. Currently, he is back on propofol which is running at 45 mcg/kg/min. Respiratory secretions are still copious. The patient was started on IV Zosyn. Sputum culture was sent. The patient was also started on scopolamine patch. He is arousable and is withdrawing to painful stimulation while being on propofol at 45 mcg. No seizure activity has been noted. He is on assist-control mode with rate of 14, pressure control of 20, PEEP of 5 and FiO2 of 40%. The patient's IV fluids are currently at KVO. The patient is on vital high-protein for enteral titration which is running at 35 cc an hour. Meanwhile,The blood work from today shows a WBC count of 6.8, hemoglobin 12.2 and platelet count of 255. Blood gas from today showed a pH of 7.5 with a pCO2 43 pO2 122. BUN is 23 with a creatinine of 1.26 and a sodium levels at 139 with a potassium of 3.7. Blood sugars up to 51. He is afebrile. No neck stiffness. No other significant events overnight. Objective - Vital Signs Vital signs: Vital Signs Temp 98.4 F 09/13/23 08:00 Pulse 72 09/13/23 11:03 Resp 22 09/13/23 11:00 BP 123/63 09/13/23 11:00 Pulse Ox 98 09/13/23 11:00 FiO2 40 09/13/23 10:49 Intake & Output 09/12/23 09/13/23 09/13/23 18:59 06:59 18:59 Intake Total 5043.205 5141.752 441.264 Output Total 465 310 170 Balance 574.427 786.752 271.264 Weight 119.7 kg Intake: IV 220 340 120 KVO 220 240 20 Piperacillin-Tazobactam 3 100 100 .375 gm In Sodium Chloride 0.9% 100 ml @ 25 mls/hr IVPB Q8HR [facility] Rx# :[id number] Intake, IV Titration 284.427 276.752 146.264 Amount propofoL 1,000 mg In 284.427 276.752 146.264 Empty Bag 1 bag @ 15 MCG/ KG/MIN 9.594 mls/hr IV . [id number] [facility] Rx#:[id number] Tube Feeding 445 420 175 Other 90 60 Output: Urine 465 310 170 Other: Voiding Method Indwelling Catheter Indwelling Catheter Indwelling Catheter # Voids 1 ABP, PAP, CO, CI - Last Documented Arterial Blood Pressure 128/50 - Exam General appearance the patient is calm comfortable, no acute distress Intubated on mechanical ventilator. Orogastric and orotracheal tube is in place. No obvious seizure activity noted. Head exam was generally normal. There was no scleral icterus or corneal arcus. Mucous membranes were moist. Neck was supple and without jugular venous distension, thyromegaly, or carotid bruits. Carotids were easily palpable bilaterally. There was no adenopathy. Lungs were clear to auscultation and percussion, and with normal diaphragmatic excursion. No wheezes or rales were noted. Cardiac exam revealed the PMI to be normally situated and sized. The rhythm was regular and no extrasystoles were noted during several minutes of auscultation. The first and second heart sounds were normal and physiologic splitting of the second heart sound was noted. There were no murmurs, rubs, clicks, or gallops. Abdominal exam revealed normal bowel sounds. The abdomen was soft, non-tender, and without masses, organomegaly, or appreciable enlargement of the abdominal aorta. Examination of the extremities revealed easily palpable radial, femoral and pedal pulses. There was no cyanosis, clubbing or edema. Examination of the skin revealed no evidence of significant rashes, suspicious appearing nevi or other concerning lesions. Neurologically, the patient is sedated, pupils are equal reactive to light around 3 mm in size. No nystagmus. No facial asymmetry. Positive cough and ga g. Sensorimotor function cannot be assessed. No Babinski. No clonus. - Labs CBC & Chem 7: 09/13/23 04:30 09/13/23 04:30 Labs: Abnormal Lab Results - Last 24 Hours (Table) 09/12/23 09/12/23 09/12/23 Range/Units 15:57 20:00 23:45 Hgb (13.0-17.5) gm/dL Hct (39.0-53.0) % MCV (80.0-100.0) fL ABG pH (7.35-7.45) ABG pO2 (83-108) mmHg ABG HCO3 (21-25) mmol/L ABG Total CO2 (19-24) mmol/L ABG O2 Saturation (94-97) % Potassium 3.4 L (3.5-5.1) mmol/L BUN (9-20) mg/dL Creatinine (0.66-1.25) mg/dL Glucose (74-99) mg/dL POC Glucose (mg/dL) 209 H 218 H (70-110) mg/dL Calcium (8.4-10.2) mg/dL 09/12/23 09/13/23 09/13/23 Range/Units 23:52 04:30 04:30 Hgb 12.2 L (13.0-17.5) gm/dL Hct 37.0 L (39.0-53.0) % MCV 77.8 L (80.0-100.0) fL ABG pH (7.35-7.45) ABG pO2 (83-108) mmHg ABG HCO3 (21-25) mmol/L ABG Total CO2 (19-24) mmol/L ABG O2 Saturation (94-97) % Potassium (3.5-5.1) mmol/L BUN 23 H (9-20) mg/dL Creatinine 1.26 H (0.66-1.25) mg/dL Glucose 230 H (74-99) mg/dL POC Glucose (mg/dL) 232 H (70-110) mg/dL Calcium 8.2 L (8.4-10.2) mg/dL 09/13/23 09/13/23 09/13/23 Range/Units 04:34 05:06 08:49 Hgb (13.0-17.5) gm/dL Hct (39.0-53.0) % MCV (80.0-100.0) fL ABG pH 7.50 H (7.35-7.45) ABG pO2 122 H (83-108) mmHg ABG HCO3 32 H (21-25) mmol/L ABG Total CO2 33 H (19-24) mmol/L ABG O2 Saturation 97.4 H (94-97) % Potassium (3.5-5.1) mmol/L BUN (9-20) mg/dL Creatinine (0.66-1.25) mg/dL Glucose (74-99) mg/dL POC Glucose (mg/dL) 224 H 225 H (70-110) mg/dL Calcium (8.4-10.2) mg/dL 09/13/23 Range/Units 11:47 Hgb (13.0-17.5) gm/dL Hct (39.0-53.0) % MCV (80.0-100.0) fL ABG pH (7.35-7.45) ABG pO2 (83-108) mmHg ABG HCO3 (21-25) mmol/L ABG Total CO2 (19-24) mmol/L ABG O2 Saturation (94-97) % Potassium (3.5-5.1) mmol/L BUN (9-20) mg/dL Creatinine (0.66-1.25) mg/dL Glucose (74-99) mg/dL POC Glucose (mg/dL) 251 H (70-110) mg/dL Calcium (8.4-10.2) mg/dL Microbiology - Last 24 Hours (Table) 09/10/23 17:15 Gram Stain - Final Sputum Sputum Culture - Final 09/12/23 11:20 Gram Stain - Preliminary Sputum Assessment and Plan Plan: New onset seizures, witnessed, lasted for few minutes and the seizure spontaneously aborted. The patient started on IV Keppra in the emergency department. CAT scan of the brain shows no acute neurologic process. No clinical seizures over the past 24 hours or since intubation. The patient's EEG showed no active seizures. CTA of the brain showed no intracranial artery stenosis or aneurysmal dilatation or dissection. Repeat CAT scan of the brain was also negative. The patient remains intubated and mechanically ventilated on propofol. The patient also is on Keppra. Altered mentation, rule out encephalopathy post seizure versus postcardiac arrest. The patient was unable to adequately come off sedation as the patient became quite agitated and restless and hypertensive. The sedation holiday was discontinued. The same will be done today. No plans to extubate as long as the patient continues to have altered mentation. Asystole/cardiac arrest with a downtime a few minutes with return of spontaneous regulation post CPR Acute hypoxic respiratory failure secondary to above, the patient is currently on pressure control mode of mechanical ventilation. Chest x-ray is within normal limits. Oxygenation is improved. Excessive respiratory secretions, rule out underlying pneumonia the patient was started on Zosyn and the patient was also given a scopolamine patch Acute lactic acidosis secondary to above, improving History of [employer] aneurysm post coiling Obesity with a BMI of 32 Diabetes mellitus type 2 Hypertension Hyperlipidemia Plan Wean the patient off the propofol and assess the patient's mental status. Will try to do this gradually and will use Precedex if the patient becomes quite agitated. Continue ventilator support and drop the pressure control down to 15 cm of water. The rest of interactive settings will be kept unchanged. Awaiting sputum Gram stain and culture Agree on IV Zosyn Continue scopolamine patch Continue IV Keppra Ativan on as-needed basis for agitation and or seizure activity EEG was negative for any seizure activity Repeat CAT scan of the brain and CT of the brain was noted. No ongoing clinical seizure activity Neurology consultation has been appreciated Hemodynamically stable Enteral feeding for nutritional support and the patient is currently on vital HP NovoLog insulin for sliding scale coverage and blood sugar control Heparin subcu for DVT prophylaxis Will continue to follow. Condition is critical. Is a critical care evaluation that was done more than 30 minutes. Time with Patient: Greater than 30
[2023-09-13 15:58] LABS: Glucose,Whole Blood 218 mg/dL (70-110)
[2023-09-13 19:37] LABS: Glucose,Whole Blood 254 mg/dL (70-110)
--- NOTE | 2023-09-13 21:25 | P.PN ---
Subjective This is a 58 -[place] male with past medical history of multiple medical problems including history of seizure was not taken she followed by cardiac arrest with downtown possible 4 minutes or more. This happened on 09/10 when he came to the hospital.Patient status post CPR with return of spontaneous circulation. He is currently intubated on mechanical ventilation he Is also on antibiotics Zosyn for possible aspiration pneumonia. On IV Keppra 1000 twice a day Patient undergoing sedation holiday for possible weaning and extubation however patient is getting restless and agitated. Urine drug screen is positive for marijuana Objective - Vital Signs Vital signs: Vital Signs Temp 99.0 F 09/13/23 12:00 Pulse 71 09/13/23 12:00 Resp 20 09/13/23 12:00 BP 119/59 09/13/23 12:00 Pulse Ox 97 09/13/23 12:00 FiO2 40 09/13/23 12:00 Intake & Output 09/12/23 09/13/23 09/13/23 18:59 06:59 18:59 Intake Total 4780.093 2249.752 480.665 Output Total 465 310 220 Balance 574.427 786.752 260.665 Weight 119.7 kg Intake: IV 220 340 140 KVO 220 240 40 Piperacillin-Tazobactam 3 100 100 .375 gm In Sodium Chloride 0.9% 100 ml @ 25 mls/hr IVPB Q8HR [facility] Rx# :[id number] Intake, IV Titration 284.427 276.752 165.665 Amount propofoL 1,000 mg In 284.427 276.752 165.665 Empty Bag 1 bag @ 15 MCG/ KG/MIN 9.594 mls/hr IV . [id number] [facility] Rx#:[id number] Tube Feeding 445 420 175 Other 90 60 Output: Urine 465 310 220 Other: Voiding Method Indwelling Catheter Indwelling Catheter Indwelling Catheter # Voids 1 ABP, PAP, CO, CI - Last Documented Arterial Blood Pressure 147/54 - Exam -GENERAL: The patient is intubated and sedated HEENT: Pupils are round and equally reacting to light. EOMI. No scleral icterus. No conjunctival pallor. Normocephalic, atraumatic. No pharyngeal erythema. No thyromegaly. CARDIOVASCULAR: S1 and S2 present. No murmurs, rubs, or gallops. PULMONARY: Chest is clear to auscultation, no wheezing , no crackles. ABDOMEN: Soft, nontender, nondistended, normoactive bowel sounds. No palpable organomegaly. MUSCULOSKELETAL: No joint swelling or deformity. EXTREMITIES: No cyanosis, clubbing, or pedal edema. NEUROLOGICAL: Gross neurological examination did not reveal any focal deficits. SKIN: No rashes. no petechiae. - Labs CBC & Chem 7: 09/13/23 04:30 09/13/23 04:30 Labs: Abnormal Lab Results - Last 24 Hours (Table) 09/12/23 09/12/23 09/12/23 Range/Units 15:57 20:00 23:45 Hgb (13.0-17.5) gm/dL Hct (39.0-53.0) % MCV (80.0-100.0) fL ABG pH (7.35-7.45) ABG pO2 (83-108) mmHg ABG HCO3 (21-25) mmol/L ABG Total CO2 (19-24) mmol/L ABG O2 Saturation (94-97) % Potassium 3.4 L (3.5-5.1) mmol/L BUN (9-20) mg/dL Creatinine (0.66-1.25) mg/dL Glucose (74-99) mg/dL POC Glucose (mg/dL) 209 H 218 H (70-110) mg/dL Calcium (8.4-10.2) mg/dL 09/12/23 09/13/23 09/13/23 Range/Units 23:52 04:30 04:30 Hgb 12.2 L (13.0-17.5) gm/dL Hct 37.0 L (39.0-53.0) % MCV 77.8 L (80.0-100.0) fL ABG pH (7.35-7.45) ABG pO2 (83-108) mmHg ABG HCO3 (21-25) mmol/L ABG Total CO2 (19-24) mmol/L ABG O2 Saturation (94-97) % Potassium (3.5-5.1) mmol/L BUN 23 H (9-20) mg/dL Creatinine 1.26 H (0.66-1.25) mg/dL Glucose 230 H (74-99) mg/dL POC Glucose (mg/dL) 232 H (70-110) mg/dL Calcium 8.2 L (8.4-10.2) mg/dL 09/13/23 09/13/23 09/13/23 Range/Units 04:34 05:06 08:49 Hgb (13.0-17.5) gm/dL Hct (39.0-53.0) % MCV (80.0-100.0) fL ABG pH 7.50 H (7.35-7.45) ABG pO2 122 H (83-108) mmHg ABG HCO3 32 H (21-25) mmol/L ABG Total CO2 33 H (19-24) mmol/L ABG O2 Saturation 97.4 H (94-97) % Potassium (3.5-5.1) mmol/L BUN (9-20) mg/dL Creatinine (0.66-1.25) mg/dL Glucose (74-99) mg/dL POC Glucose (mg/dL) 224 H 225 H (70-110) mg/dL Calcium (8.4-10.2) mg/dL 09/13/23 Range/Units 11:47 Hgb (13.0-17.5) gm/dL Hct (39.0-53.0) % MCV (80.0-100.0) fL ABG pH (7.35-7.45) ABG pO2 (83-108) mmHg ABG HCO3 (21-25) mmol/L ABG Total CO2 (19-24) mmol/L ABG O2 Saturation (94-97) % Potassium (3.5-5.1) mmol/L BUN (9-20) mg/dL Creatinine (0.66-1.25) mg/dL Glucose (74-99) mg/dL POC Glucose (mg/dL) 251 H (70-110) mg/dL Calcium (8.4-10.2) mg/dL Microbiology - Last 24 Hours (Table) 09/10/23 17:15 Gram Stain - Final Sputum Sputum Culture - Final 09/12/23 11:20 Gram Stain - Preliminary Sputum Assessment and Plan Assessment: Seizure followed by cardiac arrest with downtown about 4 minutes or more with creatinine of spontaneous circulation after CPR Acute hypoxic respiratory failure requiring intubation and mechanical ventilation Possible aspiration pneumonia and altered mental status secondary to seizure, cardiac arrest versus metabolic encephalopathy History of brain aneurysm status post colonic treatment Diabetes mellitus Hypertension Hyperlipidemia Obesity with BMI of 35.8 Substance abuse with marijuana Plan: Continue Keppra 1000 twice a day Continue Zosyn Pulmonary/critical care consult with help with vent management Neurology consult Labs and medication were reviewed.. Continue same treatment. Continue with s ymptomatic treatment. Resume home medication. Monitor labs and vitals. DVT and GI prophylaxis. Further recommendations as per clinical course of the patient DVT prophylaxis: Subcutaneous heparin GI Prophylaxis: Pepcid Prognosis is guarded
[2023-09-14 00:21] LABS: Glucose,Whole Blood 286 mg/dL (70-110)
[2023-09-14] MEDS: LORazepam 2 MG/ML INJ IV PRN (02:48)
[2023-09-14 04:13] LABS: Glucose,Whole Blood 243 mg/dL (70-110)
[2023-09-14 05:38] LABS: Basophils # (A) 0.1 k/uL (0-0.2); Basophils % (A) 1 %; Eosinophils # (A) 0.1 k/uL (0-0.7); Eosinophils % (A) 2 %; HCT 39.3 % (39.0-53.0); HGB 12.6 gm/dL (13.0-17.5); Lymphocytes # (A) 1.7 k/uL (1.0-4.8); Lymphocytes % (A) 21 %; MCH 25.4 pg (25.0-35.0); MCHC 32.1 g/dL (31.0-37.0); MCV 79.1 fL (80.0-100.0); Mean Platelet Volume 7.8; Monocytes # (A) 0.5 k/uL (0-1.0); Monocytes % (A) 6 %; Neutrophils # (A) 5.5 k/uL (1.3-7.7); Neutrophils % (A) 68 %; Platelet Count 233 k/uL (150-450); RBC 4.97 m/uL (4.30-5.90); RDW 14.5 % (11.5-15.5)
[2023-09-14 05:48] LABS: ALT 112 U/L (4-49); AST 22 U/L (17-59); African American GFR (CKD) 86 (>60 ml/min/1.73 sqM); Albumin 3.4 g/dL (3.5-5.0); Alkaline Phosphatase 75 U/L (38-126); Anion Gap 7 mmol/L; Bilirubin, Delta 0.3 mg/dL (0.0-0.2); Bilirubin,Unconjugated 0.4 mg/dL (0.0-1.1); Blood Urea Nitrogen 19 mg/dL (9-20); Calcium 8.5 mg/dL (8.4-10.2); Carbon Dioxide 28 mmol/L (22-30); Chloride 107 mmol/L (98-107); Glucose 275 mg/dL (74-99); Non-African American GFR(CKD) 75 (>60 ml/min/1.73 sqM); Sodium 142 mmol/L (137-145); Total Bilirubin 0.7 mg/dL (0.2-1.3); Total Protein 6.2 g/dL (6.3-8.2)
[2023-09-14 06:34] LABS: ABG Base Excess 5.6 mmol/L; ABG HCO3 30 mmol/L (21-25); ABG Oxygen Saturation 96.7 % (94-97); ABG PCO2 44 mmHg (35-45); ABG PH 7.44 (7.35-7.45); ABG PO2 100 mmHg (83-108); ABG TCO2 31 mmol/L (19-24); Allen Test Performed? Yes
--- NOTE | 2023-09-14 08:14 | XR ---
EXAMINATION TYPE: XR chest 1V portable DATE OF EXAM: 09/14/2023 COMPARISON: 09/13/2023 HISTORY: Shortness of breath TECHNIQUE: Single frontal view of the chest is obtained. FINDINGS: NG tube in good position stable left lower lobe consolidation and small effusion. No pneum othorax. Heart mildly enlarged. Osseous structures stable. IMPRESSION: Left lower lobe infiltrate and small effusion stable.
[2023-09-14 08:26] LABS: Glucose,Whole Blood 286 mg/dL (70-110)
--- NOTE | 2023-09-14 09:25 | P.PN ---
Subjective Progress Note Date: 09/13/23 Patient was seen for follow-up. Patient's daughter was also present. Patient is intubated, sedated on propofol 45 mcg/kg/min. On sedation holiday, per nursing report and from patient's daughter, he was following commands, squeezing hands, lifting his arms, shaking his head and nodding appropriately. At present he is back on sedation. Objective - Vital Signs Vital signs: Vital Signs Temp 99.1 F 09/13/23 16:00 Pulse 76 09/13/23 16:07 Resp 26 H 09/13/23 16:00 BP 146/87 09/13/23 16:00 Pulse Ox 98 09/13/23 16:00 FiO2 40 09/13/23 16:39 Intake & Output 09/12/23 09/13/23 09/13/23 18:59 06:59 18:59 Intake Total 9776.290 7772.752 718.037 Output Total 465 310 300 Balance 574.427 786.752 418.037 Weight 119.7 kg Intake: IV 220 340 160 KVO 220 240 60 Piperacillin-Tazobactam 3 100 100 .375 gm In Sodium Chloride 0.9% 100 ml @ 25 mls/hr IVPB Q8HR [facility] Rx# :[id number] Intake, IV Titration 284.427 276.752 208.037 Amount propofoL 1,000 mg In 284.427 276.752 208.037 Empty Bag 1 bag @ 15 MCG/ KG/MIN 9.594 mls/hr IV . [id number] [facility] Rx#:[id number] Tube Feeding 445 420 350 Other 90 60 Output: Urine 465 310 300 Other: Voiding Method Indwelling Catheter Indwelling Catheter Indwelling Catheter # Voids 1 ABP, PAP, CO, CI - Last Documented Arterial Blood Pressure 162/65 - Exam Patient is intubated, sedated. Patient is breathing over the ventilator, he has a good cough and gag reflex. He withdraws to pain. Patient on propofol 45 mcg/kg/min. Patient's pupils appears equal. Oculocephalics are mildly present. Please refer to above for details. - Labs CBC & Chem 7: 09/14/23 04:50 09/14/23 04:50 Labs: Abnormal Lab Results - Last 24 Hours (Table) 09/12/23 09/12/23 09/12/23 Range/Units 20:00 23:45 23:52 Hgb (13.0-17.5) gm/dL Hct (39.0-53.0) % MCV (80.0-100.0) fL ABG pH (7.35-7.45) ABG pO2 (83-108) mmHg ABG HCO3 (21-25) mmol/L ABG Total CO2 (19-24) mmol/L ABG O2 Saturation (94-97) % Potassium 3.4 L (3.5-5.1) mmol/L BUN (9-20) mg/dL Creatinine (0.66-1.25) mg/dL Glucose (74-99) mg/dL POC Glucose (mg/dL) 218 H 232 H (70-110) mg/dL Calcium (8.4-10.2) mg/dL 09/13/23 09/13/23 09/13/23 Range/Units 04:30 04:30 04:34 Hgb 12.2 L (13.0-17.5) gm/dL Hct 37.0 L (39.0-53.0) % MCV 77.8 L (80.0-100.0) fL ABG pH (7.35-7.45) ABG pO2 (83-108) mmHg ABG HCO3 (21-25) mmol/L ABG Total CO2 (19-24) mmol/L ABG O2 Saturation (94-97) % Potassium (3.5-5.1) mmol/L BUN 23 H (9-20) mg/dL Creatinine 1.26 H (0.66-1.25) mg/dL Glucose 230 H (74-99) mg/dL POC Glucose (mg/dL) 224 H (70-110) mg/dL Calcium 8.2 L (8.4-10.2) mg/dL 09/13/23 09/13/23 09/13/23 Range/Units 05:06 08:49 11:47 Hgb (13.0-17.5) gm/dL Hct (39.0-53.0) % MCV (80.0-100.0) fL ABG pH 7.50 H (7.35-7.45) ABG pO2 122 H (83-108) mmHg ABG HCO3 32 H (21-25) mmol/L ABG Total CO2 33 H (19-24) mmol/L ABG O2 Saturation 97.4 H (94-97) % Potassium (3.5-5.1) mmol/L BUN (9-20) mg/dL Creatinine (0.66-1.25) mg/dL Glucose (74-99) mg/dL POC Glucose (mg/dL) 225 H 251 H (70-110) mg/dL Calcium (8.4-10.2) mg/dL 09/13/23 Range/Units 15:55 Hgb (13.0-17.5) gm/dL Hct (39.0-53.0) % MCV (80.0-100.0) fL ABG pH (7.35-7.45) ABG pO2 (83-108) mmHg ABG HCO3 (21-25) mmol/L ABG Total CO2 (19-24) mmol/L ABG O2 Saturation (94-97) % Potassium (3.5-5.1) mmol/L BUN (9-20) mg/dL Creatinine (0.66-1.25) mg/dL Glucose (74-99) mg/dL POC Glucose (mg/dL) 218 H (70-110) mg/dL Calcium (8.4-10.2) mg/dL Microbiology - Last 24 Hours (Table) 09/10/23 17:15 Gram Stain - Final Sputum Sputum Culture - Final 09/12/23 11:20 Gram Stain - Preliminary Sputum Assessment and Plan Assessment: * Status post seizure with fall from a standing position, followed by cardiac arrest. According to patient's daughter, the downtime was 4 minutes, although the EMS flowsheet mentions 10 minutes of downtime. Patient at present is showing meaningful response with sedation holiday. It is uncertain if patient had a cardiac arrest and fell, or if he had a seizure that led to cardiac arrest. * History of cerebral aneurysm, status post endovascular coiling in 2004. 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 Patient off seizure medication for at least a year. * Ventilator dependent respiratory failure, on mechanical ventilation * Possible aspiration pneumonia, chest x-ray showing left lower lobe infiltrate * Lactic acidosis, secondary to seizure * Diabetes * Hypertension * Hyperlipidemia * Obesity * Marijuana use Plan: * Patient is sedated at this time. With sedation holiday, patient showing meaningful response, following directions, nodding appropriately. Pulmonary wants to hold off on extubation today, perhaps tomorrow. * Patient given loading dose of Keppra 1500 mg in the ER and maintained on Keppra 1000 mg twice daily. * EEG was abnormal due to background slowing of moderate to severe degree. This is suggestive of generalized cerebral dysfunction as can be seen with toxic metabolic encephalopathy related to diffuse structural brain abnormality. Clinical correlation is recommended. No epileptiform activity was seen. * CTA of head and neck revealed no evidence of dissection of the cervical internal carotid arteries or vertebral arteries or any evidence of significant stenosis at the carotid bifurcations. No evidence of intracranial high-grade stenosis or intracranial aneurysm. Hypoplastic right A1 segment. Aneurysmal clip in the anterior communicating artery limits evaluation. * 2D echo was technically difficult study. Severe left ventricular hypertrophy with left ventricular systolic function with EF 50 to 55%. Left atrium mildly increased in volume. * Cardiology is on board for evaluation of cardiac arrest and abnormal 2D echo. * Neurologically we are treating for seizure disorder with Keppra. Regarding cardiac arrest may or may not be related to the seizure. Patient may need further EP studies, particularly because of abnormal 2D echo with severe LVH. * Patient started on Zosyn for possible aspiration pneumonia. Chest x-ray again showed left lower lobe infiltrate. * DVT prophylaxis: Heparin 5000 units subcu every 8 hours. Patient also on SCDs. * Telemetry monitoring.
--- NOTE | 2023-09-14 09:31 | PN ---
PROGRESS NOTE SUBJECTIVE: Mr. Triplett is still deeply sedated, intubated, but we are coming off his sedation slowly. Apparently, he was following some commands yesterday. I cannot get any response from him today. He remains stable hemodynamically. In fact, hypertensive on Cleviprex. Cardiac-arana fairly stable. We will continue the blood pressure control as he is being weaned off. No other new suggestions. His ejection fraction is fairly well preserved with a thick ventricle. He has history of previous intracranial aneurysm with clipping, but no bleed at this time. OBJECTIVE: HEART: S1, S2 heard normally. Short systolic murmur is audible. LUNGS: Reveal ventilated-assisted breath sounds. ABDOMEN: Soft. LOWER EXTREMITIES: Reveal diminished pulses. CENTRAL NERVOUS SYSTEM: Assessment was not performed. MMODL / IJN: [id number] /
--- NOTE | 2023-09-14 11:01 | P.PN ---
Subjective Progress Note Date: 09/14/23 This is a 58-year-old male patient was brought in to the emergency department following a cardiac arrest. The patient was in the court house and he was noted to have an acute seizure, tonic-clonic in nature that lasted for around 2 to 3 minutes, during which, the patient had stool and urinary incontinence. The patient dropped and hit the back of his head and went unconscious. Subsequently, he was found unconscious and the fire department arrived to the scene and the patient was having agonal breathing and apparently was in asystole. The patient was given CPR for total of 3 minutes and he regained spontaneous circulation. His breathing was still agonal and he was being bagged on the way to the emergency department. In the ED, the patient was intubated immediately. The patient was placed on a mechanical ventilator. The postintubation chest x-ray showed right upper lobe atelectatic changes and ET tube was repositioned. The patient also had cardiomegaly and increased pulm vascular markings bilaterally. CAT scan of the head was done in addition to the CT scan of the cervical spine. The patient was found to have no acute intracranial process. There was some subcutaneous edema near the skull vertex without evidence of any fracture. There was encephalomalacia involving the frontal lobe related to previous surgery given the metallic density that was found in the suprasellar space. Patient had no evidence of any cervical fracture. No evidence of any hemorrhage or mass effect on the warren-white junction was well-differentiated. A metallic clip was seen as mentioned. The upper part of the lung showed bilateral airspace disease consistent with pulmonary edema. I arrived to evaluate this patient in the emergency department. He was placed on propofol and is running at 55 mcg of volume psych: Mechanical ventilation. He was having abdominal bleeding and he was quite tac hypneic. I switched him to pressure control mode and currently is on a pressure control of 25 with a PEEP of 5 and FiO2 of 100% in the rate of 20. Triple-lumen catheter was established in his left IJ. The post line insertion chest x-ray shows no evidence of any complications. No evidence of any pneumothorax. The patient remained hemodynamically stable. No further seizure activity has been noted. He was given IV Keppra in the emergency department and a total of 1.5 g of IV Keppra piggyback was given. No fever. No neck stiffness. WBC count is 16.8 with a hemoglobin of 15.9 and a platelet count of 454. BUN is at 15 with a creatinine of 1.07. Electrolytes are normal. Blood sugars at 325. As for the rest of the labs, the urine drug screen is positive for marijuana, negative for alcohol. Lactic acid level was at 6.1. AST is 580, ALT is 589 with a normal bilirubin and normal alkaline phosphatase. For set of troponin is at 0.024. He was given a dose of Lasix in the emergency department. Upon further discussion with the family, the patient has had a remote history of NUT FORMER aneurysm coiling. No reported seizure activity at least recently and the patient has been taking no antiepileptic medication. The patient has hypertension hyperlipidemia and diabetes mellitus maintained on oral medications. No further history is available at this point in time. No history of any cardiac disease. On today's evaluation of 09/11/2023, the patient is, comfortable, sedated with propofol which is running at 35 mcg/kg/min. The patient remains intubated on mechanical ventilator. He is on a pressure control mode of mechanical ventilation with a rate of 20 and a pressure control of 25 cm of water and affect has been dropped down to 50% with a PEEP of 5. The patient had a blood gas today that showed a pH of 7.63 with a pCO2 of 24 and a pO2 of 35. This is in a vegetative change and will be done accordingly. Chest x-ray shows improvement in the right upper lobe and atelectasis in the pulmonary vascular congestion. Orotracheal tube is in good location. He is afebrile. He is hemodynamically stable. In fact, he was hypertensive overnight and he was started on clevidipine drip and this was ultimately discontinued as the patient's blood pressure normalized. The patient is going to undergo a neurowork-up including a CTA of his brain and an EEG today. Echocardiogram is a lso to be done today. proBNP level was elevated at 2800. Labs from today showed a WBC count 11.5, hemoglobin 15.5 and a platelet count of 333. Sodium is at 137, potassium is at 3.3, BUN is 18 with a creatinine of 1.1. LFTs are improving with an AST of 294 and an ALT of 366. Blood sugars at 227 and the patient remains on insulin sliding scale coverage. IV fluids are currently at KVO. Producing adequate amount of urine output. Lactic acid level has dropped down to 1.6. Neurology has been consulted. On today's evaluation of 07/12/2024, the patient remains intubated on mechanical ventilator. The patient is sedated with propofol running at 45 mcg/kg/min. No seizure activity has been noted. Remains hemodynamically stable. On the mechanical ventilator, he is on pressure control mode at a rate of 14, pressure control of 20, FiO2 40% with a PEEP of 5. Chest x-ray shows no acute abn ormalities.The blood gas showed a pH of 7.49 with a pCO2 of 39 and pO2 of 169. Further workup was done for another CAT scan of the brain that was performed yesterday that showed no acute process. CT angiogram of the brain was also done that showed no significant evidence of dissection of the cervical internal carotid arteries or vertebral arteries. No evidence of any high-grade intracranial stenosis. 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 EEG showed slowing consistent with encephalopathy. No seizure activity has been noted. Meanwhile, the patient also had an echocardiogram that showed left- ventricular ejection fraction of 50 to 55%. There was severe LVH. No significant valvular abnormalities. He is currently afebrile. Hemodynamically stable on no pressors. The patient's blood pressure is under better control. The patient has a BUN of 21 with a creatinine of 1.2. White cell count is 7 with a hemoglobin 12.7 and a platelet count of 291. Remains on Keppra. Clevidipine drip has been discontinued. On today's evaluation of 07/13/2024, the patient is being seen for a follow-up. Remains intubated on mechanical ventilator. Sedation holiday was given to this patient yesterday. He failed as the patient was getting restless and agitated hypertensive and he developed excessive amount of respiratory secretions to the point where the sedation holiday had to be discontinued. Currently, he is back on propofol which is running at 45 mcg/kg/min. Respiratory secretions are still copious. The patient was started on IV Zosyn. Sputum culture was sent. The patient was also started on scopolamine patch. He is arousable and is withdrawing to painful stimulation while being on propofol at 45 mcg. No seizure activity has been noted. He is on assist-control mode with rate of 14, pressure control of 20, PEEP of 5 and FiO2 of 40%. The patient's IV fluids are currently at KVO. The patient is on vital high-protein for enteral titration which is running at 35 cc an hour. Meanwhile,The blood work from today shows a WBC count of 6.8, hemoglobin 12.2 and platelet count of 255. Blood gas from today showed a pH of 7.5 with a pCO2 43 pO2 122. BUN is 23 with a creatinine of 1.26 and a sodium levels at 139 with a potassium of 3.7. Blood sugars up to 51. He is afebrile. No neck stiffness. No other significant events overnight. On today's evaluation of 09/14/2023, the patient is being seen for a follow-up. The patient is currently on Precedex which is running 1.1 mcg/kg/h. The patient is calm and comfortable and arousable. We were unable to wean him yesterday as the patient has excessive amount of respiratory secretions and he was becoming quite tachypneic. The trial was aborted. The same trial will be done today. Note that the patient is currently off propofol and was utilizing only Precedex. Patient is also on Cleviprex which is running at 4 mg an hour for blood pr essure control. On today's evaluation, he grimaces to painful stimulation occasionally he opens up his eyes spontaneously. He is currently on pressure control mode of mechanical ventilation at a rate of 14, a pressure control of 15 cm of water with a FiO2 of 40% and a PEEP of 5. Chest x-ray shows atelectatic change in the left lung baseOtherwise orotracheal tube is in a good location. No significant airspace disease. The blood gas showed a pH of 7.44 with a pCO2 of 44 and pO2 of 100, BUN is at 19 with a creatinine of 1.09 and sodium level is 142, bicarb is at 28, WBC count is at 8 with a hemoglobin 12.6 and a platelet count of 233. The patient receiving enteral feeding for nutritional support and the patient is sleeping vital high-protein at the rate of 35 cc an hour. The patient is afebrile. Has no secretions or use of no microbial growth and the patient is currently on IV Zosyn. Hemodynamically stable on no pressors. Receiving IV fluids with normal saline at a rate of 50 cc an hour. Remains on IV Keppra. Objective - Vital Signs Vital signs: Vital Signs Temp 99.8 F H 09/14/23 04:00 Pulse 75 09/14/23 08:24 Resp 24 09/14/23 07:00 BP 158/79 09/14/23 07:00 Pulse Ox 98 09/14/23 07:00 FiO2 40 09/14/23 07:28 Intake & Output 09/13/23 09/14/23 09/14/23 18:59 06:59 18:59 Intake Total 177.610 0840.919 123.845 Output Total 390 1355 100 Balance 512.922 -235.081 23.845 Weight 121.4 kg Intake: IV 235 235 10 KVO 60 110 10 Piperacillin-Tazobactam 3 175 125 .375 gm In Sodium Chloride 0.9% 100 ml @ 25 mls/hr IVPB Q8HR [facility] Rx# :[id number] Intake, IV Titration 247.922 409.919 113.845 Amount Clevidipine Butyrate 25 0.267 34.533 24 mg In Empty Bag 1 bag @ 1 MG/HR 2 mls/hr IV .Q24H [facility] Rx#:[id number] Dexmedetomidine/0.9% NaCl 39.618 375.386 89.845 (Pmx) 400 mcg In Empty Bag 1 bag @ 0.2 MCG/KG/HR 5.95 mls/hr IV .[id number] [facility] Rx#:[id number] propofoL 1,000 mg In 208.037 Empty Bag 1 bag @ 15 MCG/ KG/MIN 9.594 mls/hr IV . [id number] [facility] Rx#:[id number] Tube Feeding 420 385 Other 90 Output: Urine 390 1355 100 Other: Voiding Method Indwelling Catheter Indwelling Catheter ABP, PAP, CO, CI - Last Documented Arterial Blood Pressure 168/68 - Exam General appearance the patient is calm comfortable, no acute distress Intubated on mechanical ventilator. Orogastric and orotracheal tube is in place. No obvious seizure activity noted. Head exam was generally normal. There was no scleral icterus or corneal arcus. Mucous membranes were moist. Neck was supple and without jugular venous distension, thyromegaly, or carotid bruits. Carotids were easily palpable bilaterally. There was no adenopathy. Lungs were clear to auscultation and percussion, and with normal diaphragmatic excursion. No wheezes or rales were noted. Cardiac exam revealed the PMI to be normally situated and sized. The rhythm was regular and no extrasystoles were noted during several minutes of auscultation. The first and second heart sounds were normal and physiologic splitting of the second heart sound was noted. There were no murmurs, rubs, clicks, or gallops. Abdominal exam revealed normal bowel sounds. The abdomen was soft, non-tender, and without masses, organomegaly, or appreciable enlargement of the abdominal aorta. Examination of the extremities revealed easily palpable radial, femoral and pedal pulses. There was no cyanosis, clubbing or edema. Examination of the skin revealed no evidence of significant rashes, suspicious appearing nevi or other concerning lesions. Neurologically, the patient is sedated, pupils are equal reactive to light around 3 mm in size. No nystagmus. No facial asymmetry. Positive cough and gag. Sensorimotor function cannot be assessed. No Babinski. No clonus. - Labs CBC & Chem 7: 09/14/23 04:50 09/14/23 04:50 Labs: Abnormal Lab Results - Last 24 Hours (Table) 09/13/23 09/13/23 09/13/23 Range/Units 08:49 11:47 15:55 Hgb (13.0-17.5) gm/dL MCV (80.0-100.0) fL ABG HCO3 (21-25) mmol/L ABG Total CO2 (19-24) mmol/L Glucose (74-99) mg/dL POC Glucose (mg/dL) 225 H 251 H 218 H (70-110) mg/dL Delta Bilirubin (0.0-0.2) mg/dL ALT (4-49) U/L Total Protein (6.3-8.2) g/dL Albumin (3.5-5.0) g/dL 09/13/23 09/14/23 09/14/23 Range/Units 19:36 00:18 04:12 Hgb (13.0-17.5) gm/dL MCV (80.0-100.0) fL ABG HCO3 (21-25) mmol/L ABG Total CO2 (19-24) mmol/L Glucose (74-99) mg/dL POC Glucose (mg/dL) 254 H 286 H 243 H (70-110) mg/dL Delta Bilirubin (0.0-0.2) mg/dL ALT (4-49) U/L Total Protein (6.3-8.2) g/dL Albumin (3.5-5.0) g/dL 09/14/23 09/14/23 09/14/23 Range/Units 04:50 04:50 06:29 Hgb 12.6 L (13.0-17.5) gm/dL MCV 79.1 L (80.0-100.0) fL ABG HCO3 30 H (21-25) mmol/L ABG Total CO2 31 H (19-24) mmol/L Glucose 275 H (74-99) mg/dL POC Glucose (mg/dL) (70-110) mg/dL Delta Bilirubin 0.3 H (0.0-0.2) mg/dL ALT 112 H (4-49) U/L Total Protein 6.2 L (6.3-8.2) g/dL Albumin 3.4 L (3.5-5.0) g/dL 09/14/23 Range/Units 08:23 Hgb (13.0-17.5) gm/dL MCV (80.0-100.0) fL ABG HCO3 (21-25) mmol/L ABG Total CO2 (19-24) mmol/L Glucose (74-99) mg/dL POC Glucose (mg/dL) 286 H (70-110) mg/dL Delta Bilirubin (0.0-0.2) mg/dL ALT (4-49) U/L Total Protein (6.3-8.2) g/dL Albumin (3.5-5.0) g/dL Microbiology - Last 24 Hours (Table) 09/10/23 17:15 Gram Stain - Final Sputum Sputum Culture - Final 09/12/23 11:20 Gram Stain - Preliminary Sputum Assessment and Plan Plan: New onset seizures, witnessed, lasted for few minutes and the seizure spontaneously aborted. The patient started on IV Keppra in the emergency depar tment. CAT scan of the brain shows no acute neurologic process. No clinical seizures over the past 24 hours or since intubation. The patient's EEG showed no active seizures. CTA of the brain showed no intracranial artery stenosis or aneurysmal dilatation or dissection. Repeat CAT scan of the brain was also negative. The patient remains intubated and mechanically ventilated on propofol. The patient also is on Keppra. Altered mentation, rule out encephalopathy post seizure versus postcardiac arrest. The patient seems to be much more responsive while being on Precedex currently on Precedex and he seems to be following simple commands and he is calm and comfortable, withdrawing on all 4 extremities his neurologic exam is nonfocal. Asystole/cardiac arrest with a downtime a few minutes with return of spontaneous regulation post CPR Acute hypoxic respiratory failure secondary to above, the patient is currently on pressure control mode of mechanical ventilation. Chest x-ray is within normal limits. Oxygenation is improved. Excessive respiratory secretions, rule out underlying pneumonia the patient was started on Zosyn and the patient was also given a scopolamine patch Acute lactic acidosis secondary to above, improving History of NUT FORMER aneurysm post coiling Obesity with a BMI of 32 Diabetes mellitus type 2 Hypertension Hyperlipidemia Plan Will perform a gradual Precedex wean Check weaning parameters and assess readiness to wean. Respite secretions may be an ongoing issue and for the reason the patient was started on a scopolamine patch and IV Zosyn Chest x-ray findings are unchanged Continue ventilator support and no vent changes will be done for today Awaiting sputum Gram stain and culture Agree on IV Zosyn Continue scopolamine patch Continue IV Keppra Ativan on as-needed basis for agitation and or seizure activity EEG was negative for any seizure activity Repeat CAT scan of the brain and CT of the brain was noted. No ongoing clinical seizure activity Neurology consultation has been appreciated Hemodynamically stable Enteral feeding for nutritional support and the patient is currently on vital NovoLog insulin for sliding scale coverage and blood sugar control Heparin subcu for DVT prophylaxis Will continue to follow. Condition is critical. Is a critical care evaluation that was done more than 30 minutes. Possible extubation today based on his neurologic status and based on his overall cardiopulmonary status and respiratory secretions. Time with Patient: Greater than 30
[2023-09-14 11:07] LABS: ABG Base Excess 3.4 mmol/L; ABG HCO3 28 mmol/L (21-25); ABG Oxygen Saturation 96.2 % (94-97); ABG PCO2 43 mmHg (35-45); ABG PH 7.42 (7.35-7.45); ABG PO2 93 mmHg (83-108); ABG TCO2 29 mmol/L (19-24)
[2023-09-14 11:08] LABS: Allen Test Performed? no
[2023-09-14] MEDS ORDERED: IPRATROPIUM-ALBUTEROL 3 ML NEB INHALATION PRN (11:24)
[2023-09-14 11:49] LABS: Glucose,Whole Blood 314 mg/dL (70-110)
[2023-09-14] MEDS: IPRATROPIUM-ALBUTEROL 3 ML NEB INHALATION SCH (12:57)
[2023-09-14 16:31] LABS: Glucose,Whole Blood 203 mg/dL (70-110)
--- NOTE | 2023-09-14 17:29 | P.PN ---
Subjective This is a 58 -[place] male with past medical history of multiple medical problems including history of seizure was not taken she followed by cardiac arrest with downtown possible 4 minutes or more. This happened on 09/10 when he came to the hospital.Patient status post CPR with return of spontaneous circulation. He is currently intubated on mechanical ventilation he Is also on antibiotics Zosyn for possible aspiration pneumonia. On IV Keppra 1000 twice a day Patient undergoing sedation holiday for possible weaning and extubation however patient is getting restless and agitated. Urine drug screen is positive for marijuana 09/14/2023 pt remains in the icu intubated and sedated [facility] pulmonary and critical care team following closely he is been evaluated for weaning trial remain on zosyn and iv keppra Objective - Vital Signs Vital signs: Vital Signs Temp 99.7 F H 09/14/23 08:00 Pulse 81 09/14/23 10:00 Resp 14 09/14/23 10:00 BP 149/77 09/14/23 09:45 Pulse Ox 97 09/14/23 10:00 FiO2 40 09/14/23 08:00 Intake & Output 09/13/23 09/14/23 09/14/23 18:59 06:59 18:59 Intake Total 009.516 6048.919 285.282 Output Total 390 1355 390 Balance 512.922 -235.081 -104.718 Weight 121.4 kg 121.4 kg Intake: IV 235 235 140 KVO 60 110 40 Piperacillin-Tazobactam 3 175 125 100 .375 gm In Sodium Chloride 0.9% 100 ml @ 25 mls/hr IVPB Q8HR [facility] Rx# :[id number] Intake, IV Titration 247.922 409.919 145.282 Amount Clevidipine Butyrate 25 0.267 34.533 24 mg In Empty Bag 1 bag @ 1 MG/HR 2 mls/hr IV .Q24H [facility] Rx#:[id number] Dexmedetomidine/0.9% NaCl 39.618 375.386 121.282 (Pmx) 400 mcg In Empty Bag 1 bag @ 0.2 MCG/KG/HR 5.95 mls/hr IV .[id number] [facility] Rx#:[id number] propofoL 1,000 mg In 208.037 Empty Bag 1 bag @ 15 MCG/ KG/MIN 9.594 mls/hr IV . [id number] [facility] Rx#:[id number] Tube Feeding 420 385 Other 90 Output: Urine 390 1355 390 Other: Voiding Method Indwelling Catheter Indwelling Catheter Indwelling Catheter ABP, PAP, CO, CI - Last Documented Arterial Blood Pressure 132/58 - Exam -GENERAL: The patient is intubated and sedated HEENT: Pupils are round and equally reacting to light. EOMI. No scleral icterus. No conjunctival pallor. Normocephalic, atraumatic. No pharyngeal erythema. No thyromegaly. CARDIOVASCULAR: S1 and S2 present. No murmurs, rubs, or gallops. PULMONARY: Chest is clear to auscultation, no wheezing , no crackles. ABDOMEN: Soft, nontender, nondistended, normoactive bowel sounds. No palpable o rganomegaly. MUSCULOSKELETAL: No joint swelling or deformity. EXTREMITIES: No cyanosis, clubbing, or pedal edema. NEUROLOGICAL: Gross neurological examination did not reveal any focal deficits. SKIN: No rashes. no petechiae. - Labs CBC & Chem 7: 09/14/23 04:50 09/14/23 04:50 Labs: Abnormal Lab Results - Last 24 Hours (Table) 09/13/23 09/13/23 09/13/23 Range/Units 11:47 15:55 19:36 Hgb (13.0-17.5) gm/dL MCV (80.0-100.0) fL ABG HCO3 (21-25) mmol/L ABG Total CO2 (19-24) mmol/L Glucose (74-99) mg/dL POC Glucose (mg/dL) 251 H 218 H 254 H (70-110) mg/dL Delta Bilirubin (0.0-0.2) mg/dL ALT (4-49) U/L Total Protein (6.3-8.2) g/dL Albumin (3.5-5.0) g/dL 09/14/23 09/14/23 09/14/23 Range/Units 00:18 04:12 04:50 Hgb 12.6 L (13.0-17.5) gm/dL MCV 79.1 L (80.0-100.0) fL ABG HCO3 (21-25) mmol/L ABG Total CO2 (19-24) mmol/L Glucose (74-99) mg/dL POC Glucose (mg/dL) 286 H 243 H (70-110) mg/dL Delta Bilirubin (0.0-0.2) mg/dL ALT (4-49) U/L Total Protein (6.3-8.2) g/dL Albumin (3.5-5.0) g/dL 09/14/23 09/14/23 09/14/23 Range/Units 04:50 06:29 08:23 Hgb (13.0-17.5) gm/dL MCV (80.0-100.0) fL ABG HCO3 30 H (21-25) mmol/L ABG Total CO2 31 H (19-24) mmol/L Glucose 275 H (74-99) mg/dL POC Glucose (mg/dL) 286 H (70-110) mg/dL Delta Bilirubin 0.3 H (0.0-0.2) mg/dL ALT 112 H (4-49) U/L Total Protein 6.2 L (6.3-8.2) g/dL Albumin 3.4 L (3.5-5.0) g/dL Microbiology - Last 24 Hours (Table) 09/10/23 17:15 Gram Stain - Final Sputum Sputum Culture - Final 09/12/23 11:20 Gram Stain - Preliminary Sputum Assessment and Plan Assessment: Seizure followed by cardiac arrest with downtown about 4 minutes or more with creatinine of spontaneous circulation after CPR Acute hypoxic respiratory failure requiring intubation and mechanical ventilation Possible aspiration pneumonia and altered mental status secondary to seizure, cardiac arrest versus metabolic encephalopathy History of brain aneurysm status post colonic treatment Diabetes mellitus Hypertension Hyperlipidemia Obesity with BMI of 35.8 Substance abuse with marijuana Plan: Continue Keppra 1000 twice a day Continue Zosyn Pulmonary/critical care consult with help with vent management Neurology consult Labs and medication were reviewed.. Continue same treatment. Continue with symptomatic treatment. Resume home medication. Monitor labs and vitals. DVT and GI prophylaxis. Further recommendations as per clinical course of the patient DVT prophylaxis: Subcutaneous heparin GI Prophylaxis: Pepcid Prognosis is guarded
[2023-09-14 19:58] LABS: Glucose,Whole Blood 231 mg/dL (70-110)
[2023-09-15 00:07] LABS: Glucose,Whole Blood 179 mg/dL (70-110)
[2023-09-15 04:18] LABS: Glucose,Whole Blood 249 mg/dL (70-110)
[2023-09-15] MEDS: LORazepam 2 MG/ML INJ IV PRN (04:23)
--- NOTE | 2023-09-15 04:54 | CT ---
EXAM: CT Head Without Intravenous Contrast CLINICAL HISTORY: ITS.REASON CT Reason: code stroke TECHNIQUE: Axial computed tomography images of the head/brain without intravenous contrast. CTDIvol (mGy): 48.8. DLP (mGy*cm): 1288. This CT exam was performed using one or more of the following dose reduction techniques: automated exposure control, adjustment of the mA and/or kV according to patient size, and/or use of iterative reconstruction technique. 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 Encephalomalacia involving the inferior right frontal lobe consistent with sequela of prior infarct. No hemorrhage. No significant white matter disease. No edema. Ventricles: Unremarkable. No ventriculomegaly. Bones/joints: Unremarkable. No acute fracture. Soft tissues: Unremarkable. Sinuses: Unremarkable as visualized. No acute sinusitis. Mastoid air cells: Unremarkable as visualized. No mastoid effusion. IMPRESSION: No acute intracranial process.
--- NOTE | 2023-09-15 05:33 | CT ---
EXAM: CT Angiography Head With Intravenous Contrast CLINICAL HISTORY: ITS.REASON CT Reason: code stroke TECHNIQUE: Axial computed tomographic angiography images of the head with intravenous contrast. CTDI is 48.8 mGy and DLP is 1288 mGy-cm. This CT exam was performed using one or more of the following dose reduction techniques: automated exposure control, adjustment of the mA and/or kV according to patient size, and/or use of iterative reconstruction technique. MIP reconstructed images were created and reviewed. COMPARISON: No relevant prior studies available. FINDINGS: Right internal carotid artery: No acute findings. Intracranial segment is patent with no significant stenosis. No aneurysm. Right anterior cerebral artery: Unremarkable. No occlusion or significant stenosis. No aneurysm. Limited evaluation distally due to phase of contrast. Postsurgical changes from anterior communicating artery aneurysm coiling. Right middle cerebral artery: Unremarkable. No occlusion or significant stenosis. No aneurysm. Limited evaluation distally due to phase of contrast. Right posterior cerebral artery: Unremarkable. No occlusion or significant stenosis. No aneurysm. Limited evaluation distally due to phase of contrast. Right vertebral artery: Unremarkable as visualized. Left internal carotid artery: No acute findings. Intracranial segment is patent with no significant stenosis. No aneurysm. Left anterior cerebral artery: Unremarkable. No occlusion or significant stenosis. No aneurysm. Limited evaluation distally due to phase of contrast. Left middle cerebral artery: Unremarkable. No occlusion or significant stenosis. No aneurysm. Limited evaluation distally due to phase of contrast. Left posterior cerebral artery: Unremarkable. No occlusion or significant stenosis. No aneurysm. Limited evaluation distally due to phase of contrast. Left vertebral artery: Unremarkable as visualized. Basilar artery: Unremarkable. No occlusion or significant stenosis. No aneurysm. IMPRESSION: Limited evaluation of the intracranial vasculature due to phase of contrast. No evidence of vessel occlusion in the bilateral internal carotid arteries, vertebral arteries bilateral A1, P1, or M1 segments. EXAM: CT Angiography Neck With Intravenous Contrast CLINICAL HISTORY: ITS.REASON CT Reason: code stroke TECHNIQUE: Routine carotid CT angiography protocol was performed with intravenous contrast. NASCET criteria using the distal ICAs for comparison were used for evaluation of stenoses. CTDI is 16.8 mGy and DLP is 16.8 mGy-cm. This CT exam was performed using one or more of the following dose reduction techniques: automated exposure control, adjustment of the mA and/or kV according to patient size, and/or use of iterative reconstruction technique. MIP reconstructed images were created and reviewed. COMPARISON: None. FINDINGS: VASCULATURE: Right common carotid artery: Unremarkable. No occlusion or significant stenosis. No dissection. Right internal carotid artery: Unremarkable. Extracranial segment is patent with no occlusion or significant stenosis. No dissection. Right external carotid artery: Unremarkable. No occlusion. Right vertebral artery: Unremarkable. No occlusion or significant stenosis. No dissection. Left common carotid artery: Unremarkable. No occlusion or significant stenosis. No dissection. Left internal carotid artery: Unremarkable. Extracranial segment is patent with no occlusion or significant stenosis. No dissection. Left external carotid artery: Unremarkable. No occlusion. Left vertebral artery: Unremarkable. No occlusion or significant stenosis. No dissection. NECK: Bones/joints: Unremarkable. No acute fracture. Soft tissues: Left IJ central venous catheter in place.. Lung apices: Clear. CAROTID STENOSIS REFERENCE USING NASCET CRITERIA: % ICA stenosis = (1 - narrowest ICA diameter/diameter of distal cervical ICA) x 100. Mild - <50% stenosis. Moderate - 50-69% stenosis. Severe - 70-94% stenosis. Near occlusion - 95-99% stenosis. Occluded - 100% stenosis. IMPRESSION: Negative CTA neck.
[2023-09-15] MEDS: DEXMEDETOMIDINE/0.9% NACL(PMX) 400 MCG in EMPTY BAG 1 BAG IV SCH (05:47)
[2023-09-15 05:55] LABS: Basophils # (A) 0.1 k/uL (0-0.2); Basophils % (A) 1 %; Eosinophils # (A) 0.4 k/uL (0-0.7); Eosinophils % (A) 5 %; HCT 41.5 % (39.0-53.0); HGB 13.2 gm/dL (13.0-17.5); Lymphocytes # (A) 1.9 k/uL (1.0-4.8); Lymphocytes % (A) 24 %; MCH 24.9 pg (25.0-35.0); MCHC 31.7 g/dL (31.0-37.0); MCV 78.5 fL (80.0-100.0); Mean Platelet Volume 7.7; Monocytes # (A) 0.5 k/uL (0-1.0); Monocytes % (A) 6 %; Neutrophils # (A) 5.1 k/uL (1.3-7.7); Neutrophils % (A) 64 %; Platelet Count 258 k/uL (150-450); RBC 5.29 m/uL (4.30-5.90); RDW 14.3 % (11.5-15.5); WBC 7.9 k/uL (3.8-10.6)
[2023-09-15] MEDS: cloNIDine HCL 0.2 MG TAB PO SCH ×2 (06:04→09:05)
[2023-09-15] MEDS: hydrALAZINE HCL 10 MG TAB PO SCH (06:04)
[2023-09-15 06:09] LABS: African American GFR (CKD) >90 (>60 ml/min/1.73 sqM); Anion Gap 7 mmol/L; Blood Urea Nitrogen 23 mg/dL (9-20); Calcium 8.8 mg/dL (8.4-10.2); Carbon Dioxide 26 mmol/L (22-30); Chloride 106 mmol/L (98-107); Glucose 241 mg/dL (74-99); Non-African American GFR(CKD) 86 (>60 ml/min/1.73 sqM); Potassium 3.8 mmol/L (3.5-5.1); Sodium 139 mmol/L (137-145)
[2023-09-15] MEDS: METOPROLOL TARTRATE 5 MG/5 ML VIAL IVP STA (06:36)
[2023-09-15] MEDS: POTASSIUM CHLORIDE 10 MEQ in WATER FOR INJECTION 1 100ML.BAG IVPB SCH (06:49)
[2023-09-15] MEDS: ASPIRIN 325 MG TAB PO STA (06:54)
--- NOTE | 2023-09-15 07:02 | XR ---
EXAMINATION TYPE: XR chest 1V portable DATE OF EXAM: 09/15/2023 COMPARISON: 09/14/2023 HISTORY: Shortness of breath TECHNIQUE: Single frontal view of the chest is obtained. FINDINGS: There is no change in the left jugular central venous catheter. There is been interval removal of the NG tube and ET tube. There is no change in the retrocardiac opacity likely combination of pleural fluid and atelectasis wi th pneumonic infiltrate not excluded. There is persistent moderate vascular congestion. IMPRESSION: Acute cardiopulmonary disease is described above with no significant interval change.
[2023-09-15 08:32] LABS: Glucose,Whole Blood 286 mg/dL (70-110)
[2023-09-15] MEDS: hydrALAZINE HCL 50 MG TAB PO SCH (08:59)
[2023-09-15] MEDS: FUROSEMIDE 10 MG/ML 4 ML VIAL IV STA (09:02)
--- NOTE | 2023-09-15 09:24 | P.PN ---
Subjective Progress Note Date: 09/14/23 Patient was seen for follow-up. Patient's daughter was also present. Patient is extubated couple hours ago. Patient is fully alert and awake. Per patient's daughter, he remembers all his kids and grandkids. He does not remember that he is going through divorce although it is complete. He does not remember that he has sold his home. He does remember that he had aneurysm surgery in 2004. He denies any numbness or tingling any focal weakness. Patient states that his aneurysm was treated before it was ruptured in 2004. Objective - Vital Signs Vital signs: Vital Signs Temp 98.8 F 09/14/23 12:00 Pulse 77 09/14/23 12:00 Resp 26 H 09/14/23 12:00 BP 150/73 09/14/23 11:45 Pulse Ox 96 09/14/23 12:00 FiO2 40 09/14/23 11:20 Intake & Output 09/13/23 09/14/23 09/14/23 18:59 06:59 18:59 Intake Total 905.278 0331.919 400.808 Output Total 390 1355 630 Balance 512.922 -235.081 -229.192 Weight 121.4 kg 121.4 kg Intake: IV 235 235 175 KVO 60 110 75 Piperacillin-Tazobactam 3 175 125 100 .375 gm In Sodium Chloride 0.9% 100 ml @ 25 mls/hr IVPB Q8HR [facility] Rx# :[id number] Intake, IV Titration 247.922 409.919 225.808 Amount Clevidipine Butyrate 25 0.267 34.533 54 mg In Empty Bag 1 bag @ 1 MG/HR 2 mls/hr IV .Q24H [facility] Rx#:[id number] Dexmedetomidine/0.9% NaCl 39.618 375.386 171.808 (Pmx) 400 mcg In Empty Bag 1 bag @ 0.2 MCG/KG/HR 5.95 mls/hr IV .[id number] [facility] Rx#:[id number] propofoL 1,000 mg In 208.037 Empty Bag 1 bag @ 15 MCG/ KG/MIN 9.594 mls/hr IV . [id number] [facility] Rx#:[id number] Tube Feeding 420 385 Other 90 Output: Urine 390 1355 630 Other: Voiding Method Indwelling Catheter Indwelling Catheter Indwelling Catheter ABP, PAP, CO, CI - Last Documented Arterial Blood Pressure 151/54 - Exam Patient is alert and awake. He states it is August and the year is 2018. He knows he is in the hospital but thinks it is a Iraj Alexander in [facility]. He knows name of the current president Mitzi. Speech and language functions are normal. He can name and repeat. On cranial examination pupils are equal, round and reactive to light, visual francis are full on confrontation, extraocular muscles are intact with no nystagmus. Face is symmetric, tongue protrudes to the midline. No evidence of tongue bite soto. Palatal elevation is normal. Hearing normal. On muscle strength testing there is no pronator drift and the strength is normal in both arms distally and proximally. In the lower limbs hip flexion is 4 whereas ankle dorsiflexion 5 bilaterally. Sensory to touch is equal with no neglect. No ataxia for [id number] testing bilaterally. - Labs CBC & Chem 7: 09/15/23 05:20 09/15/23 05:20 Labs: Abnormal Lab Results - Last 24 Hours (Table) 09/13/23 09/13/23 09/14/23 Range/Units 15:55 19:36 00:18 Hgb (13.0-17.5) gm/dL MCV (80.0-100.0) fL ABG HCO3 (21-25) mmol/L ABG Total CO2 (19-24) mmol/L Glucose (74-99) mg/dL POC Glucose (mg/dL) 218 H 254 H 286 H (70-110) mg/dL Delta Bilirubin (0.0-0.2) mg/dL ALT (4-49) U/L Total Protein (6.3-8.2) g/dL Albumin (3.5-5.0) g/dL 09/14/23 09/14/23 09/14/23 Range/Units 04:12 04:50 04:50 Hgb 12.6 L (13.0-17.5) gm/dL MCV 79.1 L (80.0-100.0) fL ABG HCO3 (21-25) mmol/L ABG Total CO2 (19-24) mmol/L Glucose 275 H (74-99) mg/dL POC Glucose (mg/dL) 243 H (70-110) mg/dL Delta Bilirubin 0.3 H (0.0-0.2) mg/dL ALT 112 H (4-49) U/L Total Protein 6.2 L (6.3-8.2) g/dL Albumin 3.4 L (3.5-5.0) g/dL 09/14/23 09/14/23 09/14/23 Range/Units 06:29 08:23 11:05 Hgb (13.0-17.5) gm/dL MCV (80.0-100.0) fL ABG HCO3 30 H 28 H (21-25) mmol/L ABG Total CO2 31 H 29 H (19-24) mmol/L Glucose (74-99) mg/dL POC Glucose (mg/dL) 286 H (70-110) mg/dL Delta Bilirubin (0.0-0.2) mg/dL ALT (4-49) U/L Total Protein (6.3-8.2) g/dL Albumin (3.5-5.0) g/dL 09/14/23 Range/Units 11:47 Hgb (13.0-17.5) gm/dL MCV (80.0-100.0) fL ABG HCO3 (21-25) mmol/L ABG Total CO2 (19-24) mmol/L Glucose (74-99) mg/dL POC Glucose (mg/dL) 314 H (70-110) mg/dL Delta Bilirubin (0.0-0.2) mg/dL ALT (4-49) U/L Total Protein (6.3-8.2) g/dL Albumin (3.5-5.0) g/dL Microbiology - Last 24 Hours (Table) 09/12/23 11:20 Gram Stain - Final Sputum Sputum Culture - Final 09/10/23 17:15 Gram Stain - Final Sputum Sputum Culture - Final Assessment and Plan Assessment: * Status post seizure with fall from a standing position, followed by cardiac arrest. According to patient's daughter, the downtime was 4 minutes, although the EMS flowsheet mentions 10 minutes of downtime. * Status postextubation. Patient is doing remarkably better, as per examination above. * History of cerebral aneurysm, status post endovascular coiling in 2004. 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 Patient off seizure medication for at least a year. * Ventilator dependent respiratory failure, on mechanical ventilation, status postextubation 09/14/2023 * Possible aspiration pneumonia, chest x-ray showing left lower lobe infiltrate * Lactic acidosis, secondary to seizure * Diabetes * Hypertension * Hyperlipidemia * Obesity * Marijuana use Plan: * Patient is extubated, doing great. Please refer to examination above. Patient's examination is nonfocal. Mentation is improving. * Patient given loading dose of Keppra 1500 mg in the ER and maintained on Keppra 1000 mg twice daily. * EEG was abnormal due to background slowing of moderate to severe degree. This is suggestive of generalized cerebral dysfunction as can be seen with toxic metabolic encephalopathy related to diffuse structural brain abnormality. Clinical correlation is recommended. No epileptiform activity was seen. * CTA of head and neck revealed no evidence of dissection of the cervical internal carotid arteries or vertebral arteries or any evidence of significant stenosis at the carotid bifurcations. No evidence of intracranial high-grade stenosis or intracranial aneurysm. Hypoplastic right A1 segment. Aneurysmal clip in the anterior communicating artery limits evaluation. * 2D echo was technically difficult study. Severe left ventricular hypertrophy with left ventricular systolic function with EF 50 to 55%. Left atrium mildly increased in volume. * Cardiology is on board for evaluation of cardiac arrest and abnormal 2D echo. * Neurologically we are treating for seizure disorder with Keppra. Regarding cardiac arrest may or may not be related to the seizure. Patient may need further EP studies, particularly because of abnormal 2D echo with severe LVH. * Patient started on Zosyn for left lower lobe infiltrate. * DVT prophylaxis: Heparin 5000 units subcu every 8 hours. Patient also on SCD s. * Telemetry monitoring.
[2023-09-15] MEDS: METOPROLOL TARTRATE 50 MG TAB PO SCH (09:32)
--- NOTE | 2023-09-15 10:41 | P.PN ---
Subjective Progress Note Date: 09/15/23 This is a 58-year-old male patient was brought in to the emergency department following a cardiac arrest. The patient was in the court house and he was noted to have an acute seizure, tonic-clonic in nature that lasted for around 2 to 3 minutes, during which, the patient had stool and urinary incontinence. The patient dropped and hit the back of his head and went unconscious. Subsequently, he was found unconscious and the fire department arrived to the scene and the patient was having agonal breathing and apparently was in asystole. The patient was given CPR for total of 3 minutes and he regained spontaneous circulation. His breathing was still agonal and he was being bagged on the way to the emergency department. In the ED, the patient was intubated immediately. The patient was placed on a mechanical ventilator. The postintubation chest x-ray showed right upper lobe atelectatic changes and ET tube was repositioned. The patient also had cardiomegaly and increased pulm vascular markings bilaterally. CAT scan of the head was done in addition to the CT scan of the cervical spine. The patient was found to have no acute intracranial process. There was some subcutaneous edema near the skull vertex without evidence of any fracture. There was encephalomalacia involving the frontal lobe related to previous surgery given the metallic density that was found in the suprasellar space. Patient had no evidence of any cervical fracture. No evidence of any hemorrhage or mass effect on the warren-white junction was well-differentiated. A metallic clip was seen as mentioned. The upper part of the lung showed bilateral airspace disease consistent with pulmonary edema. I arrived to evaluate this patient in the emergency department. He was placed on propofol and is running at 55 mcg of volume psych: Mechanical ventilation. He was having abdominal bleeding and he was quite tac hypneic. I switched him to pressure control mode and currently is on a pressure control of 25 with a PEEP of 5 and FiO2 of 100% in the rate of 20. Triple-lumen catheter was established in his left IJ. The post line insertion chest x-ray shows no evidence of any complications. No evidence of any pneumothorax. The patient remained hemodynamically stable. No further seizure activity has been noted. He was given IV Keppra in the emergency department and a total of 1.5 g of IV Keppra piggyback was given. No fever. No neck stiffness. WBC count is 16.8 with a hemoglobin of 15.9 and a platelet count of 454. BUN is at 15 with a creatinine of 1.07. Electrolytes are normal. Blood sugars at 325. As for the rest of the labs, the urine drug screen is positive for marijuana, negative for alcohol. Lactic acid level was at 6.1. AST is 580, ALT is 589 with a normal bilirubin and normal alkaline phosphatase. For set of troponin is at 0.024. He was given a dose of Lasix in the emergency department. Upon further discussion with the family, the patient has had a remote history of SECOND MILLER aneurysm coiling. No reported seizure activity at least recently and the patient has been taking no antiepileptic medication. The patient has hypertension hyperlipidemia and diabetes mellitus maintained on oral medications. No further history is available at this point in time. No history of any cardiac disease. On today's evaluation of 09/11/2023, the patient is, comfortable, sedated with propofol which is running at 35 mcg/kg/min. The patient remains intubated on mechanical ventilator. He is on a pressure control mode of mechanical ventilation with a rate of 20 and a pressure control of 25 cm of water and affect has been dropped down to 50% with a PEEP of 5. The patient had a blood gas today that showed a pH of 7.63 with a pCO2 of 24 and a pO2 of 35. This is in a vegetative change and will be done accordingly. Chest x-ray shows improvement in the right upper lobe and atelectasis in the pulmonary vascular congestion. Orotracheal tube is in good location. He is afebrile. He is hemodynamically stable. In fact, he was hypertensive overnight and he was started on clevidipine drip and this was ultimately discontinued as the patient's blood pressure normalized. The patient is going to undergo a neurowork-up including a CTA of his brain and an EEG today. Echocardiogram is a lso to be done today. proBNP level was elevated at 2800. Labs from today showed a WBC count 11.5, hemoglobin 15.5 and a platelet count of 333. Sodium is at 137, potassium is at 3.3, BUN is 18 with a creatinine of 1.1. LFTs are improving with an AST of 294 and an ALT of 366. Blood sugars at 227 and the patient remains on insulin sliding scale coverage. IV fluids are currently at KVO. Producing adequate amount of urine output. Lactic acid level has dropped down to 1.6. Neurology has been consulted. On today's evaluation of 07/12/2024, the patient remains intubated on mechanical ventilator. The patient is sedated with propofol running at 45 mcg/kg/min. No seizure activity has been noted. Remains hemodynamically stable. On the mechanical ventilator, he is on pressure control mode at a rate of 14, pressure control of 20, FiO2 40% with a PEEP of 5. Chest x-ray shows no acute abn ormalities.The blood gas showed a pH of 7.49 with a pCO2 of 39 and pO2 of 169. Further workup was done for another CAT scan of the brain that was performed yesterday that showed no acute process. CT angiogram of the brain was also done that showed no significant evidence of dissection of the cervical internal carotid arteries or vertebral arteries. No evidence of any high-grade intracranial stenosis. 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 EEG showed slowing consistent with encephalopathy. No seizure activity has been noted. Meanwhile, the patient also had an echocardiogram that showed left- ventricular ejection fraction of 50 to 55%. There was severe LVH. No significant valvular abnormalities. He is currently afebrile. Hemodynamically stable on no pressors. The patient's blood pressure is under better control. The patient has a BUN of 21 with a creatinine of 1.2. White cell count is 7 with a hemoglobin 12.7 and a platelet count of 291. Remains on Keppra. Clevidipine drip has been discontinued. On today's evaluation of 07/13/2024, the patient is being seen for a follow-up. Remains intubated on mechanical ventilator. Sedation holiday was given to this patient yesterday. He failed as the patient was getting restless and agitated hypertensive and he developed excessive amount of respiratory secretions to the point where the sedation holiday had to be discontinued. Currently, he is back on propofol which is running at 45 mcg/kg/min. Respiratory secretions are still copious. The patient was started on IV Zosyn. Sputum culture was sent. The patient was also started on scopolamine patch. He is arousable and is withdrawing to painful stimulation while being on propofol at 45 mcg. No seizure activity has been noted. He is on assist-control mode with rate of 14, pressure control of 20, PEEP of 5 and FiO2 of 40%. The patient's IV fluids are currently at KVO. The patient is on vital high-protein for enteral titration which is running at 35 cc an hour. Meanwhile,The blood work from today shows a WBC count of 6.8, hemoglobin 12.2 and platelet count of 255. Blood gas from today showed a pH of 7.5 with a pCO2 43 pO2 122. BUN is 23 with a creatinine of 1.26 and a sodium levels at 139 with a potassium of 3.7. Blood sugars up to 51. He is afebrile. No neck stiffness. No other significant events overnight. On today's evaluation of 09/14/2023, the patient is being seen for a follow-up. The patient is currently on Precedex which is running 1.1 mcg/kg/h. The patient is calm and comfortable and arousable. We were unable to wean him yesterday as the patient has excessive amount of respiratory secretions and he was becoming quite tachypneic. The trial was aborted. The same trial will be done today. Note that the patient is currently off propofol and was utilizing only Precedex. Patient is also on Cleviprex which is running at 4 mg an hour for blood pr essure control. On today's evaluation, he grimaces to painful stimulation occasionally he opens up his eyes spontaneously. He is currently on pressure control mode of mechanical ventilation at a rate of 14, a pressure control of 15 cm of water with a FiO2 of 40% and a PEEP of 5. Chest x-ray shows atelectatic change in the left lung baseOtherwise orotracheal tube is in a good location. No significant airspace disease. The blood gas showed a pH of 7.44 with a pCO2 of 44 and pO2 of 100, BUN is at 19 with a creatinine of 1.09 and sodium level is 142, bicarb is at 28, WBC count is at 8 with a hemoglobin 12.6 and a platelet count of 233. The patient receiving enteral feeding for nutritional support and the patient is sleeping vital high-protein at the rate of 35 cc an hour. The patient is afebrile. Has no secretions or use of no microbial growth and the patient is currently on IV Zosyn. Hemodynamically stable on no pressors. Receiving IV fluids with normal saline at a rate of 50 cc an hour. Remains on IV Keppra. On today's evaluation of 07/15/2024, I am seeing the patient for a follow-up. The patient was extubated yesterday without any major difficulties. He was immediately placed on a BiPAP and subsequently was placed on nasal cannula. However, earlier last night, the patient became acutely hypertensive, he was having hallucinations, he was becoming more restless and he was also confused. Systolic blood pressure was as high as 210 along with his underlying mental s tatus changes, the patient did not unequal pupil 2 mm on the left and 5 mm on the right pupil. Based on that, the patient was given a CT angiogram of the brain that showed no acute abnormalities and there was no vascular insult or stroke. He was managed with Cleviprex drip which is currently running at 20 mg an hour. He was also started on Precedex to control his agitation and the patient is currently on Precedex at 0.4 mcg/kg/h. To effectively control his blood pressure, I added clonidine hydralazine and Lopressor. The patient was having sinus tachycardia and after given 5 mg of IV Lopressor, his heart rate improved. Currently is on Lopressor 50 mg twice daily, clonidine point 2 mg tw ice a day and hydralazine 50 mg 3 times daily. He will be given a dose of Lasix 40 mg IV push x 1. He was taken off the BiPAP and currently is on 40 deflection by nasal cannula. IV fluids are currently at KVO. Less agitated. Able to communicate at this point in time. Neurologic exam is nonfocal. No seizure activity has been noted. Sodium level from today is at 139 with a potassium level of 3.8, BUN is 23 with a creatinine of 0.9. The risk of 7.9 with a hemoglobin 13.2. Objective - Vital Signs Vital signs: Vital Signs Temp 99.7 F H 09/15/23 04:00 Pulse 79 09/15/23 07:00 Resp 23 09/15/23 07:00 BP 133/88 09/15/23 07:00 Pulse Ox 92 L 09/15/23 07:00 FiO2 30 09/15/23 03:34 Intake & Output 09/14/23 09/15/23 09/15/23 18:59 06:59 18:59 Intake Total 624.240 398.434 63.188 Output Total 1110 730 50 Balance -485.760 -331.566 13.188 Weight 121.4 kg 121.3 kg Intake: IV 353 223 10 KVO 153 123 10 Piperacillin-Tazobactam 3 200 100 .375 gm In Sodium Chloride 0.9% 100 ml @ 25 mls/hr IVPB Q8HR [facility] Rx# :[id number] Intake, IV Titration 271.240 175.434 53.188 Amount Clevidipine Butyrate 25 97.2 175.434 45.6 mg In Empty Bag 1 bag @ 1 MG/HR 2 mls/hr IV .Q24H [facility] Rx#:[id number] Dexmedetomidine/0.9% NaCl 174.040 (Pmx) 400 mcg In Empty Bag 1 bag @ 0.2 MCG/KG/HR 5.95 mls/hr IV .[id number] [facility] Rx#:[id number] Dexmedetomidine/0.9% NaCl 7.588 (Pmx) 400 mcg In Empty Bag 1 bag @ 0.2 MCG/KG/HR 6.07 mls/hr IV .[id number] [facility] Rx#:[id number] Output: Urine 1110 730 50 Other: Voiding Method Indwelling Catheter Indwelling Catheter ABP, PAP, CO, CI - Last Documented Arterial Blood Pressure 154/52 - Exam General appearance the patient is calm comfortable, no acute distress, extubated yet the patient is a bit confused and occasionally restless. Currently is on Precedex. No focal neurological deficits. Head exam was generally normal. There was no scleral icterus or corneal arcus. Mucous membranes were moist. Neck was supple and without jugular venous distension, thyromegaly, or carotid bruits. Carotids were easily palpable bilaterally. There was no adenopathy. Lungs were clear to auscultation and percussion, and with normal diaphragmatic excursion. No wheezes or rales were noted. Cardiac exam revealed the PMI to be normally situated and sized. The rhythm was regular and no extrasystoles were noted during several minutes of auscultation. The first and second heart sounds were normal and physiologic splitting of the second heart sound was noted. There were no murmurs, rubs, clicks, or gallops. Abdominal exam revealed normal bowel sounds. The abdomen was soft, non-tender, and without masses, organomegaly, or appreciable enlargement of the abdominal aorta. Examination of the extremities revealed easily palpable radial, femoral and pedal pulses. There was no cyanosis, clubbing or edema. Examination of the skin revealed no evidence of significant rashes, suspicious appearing nevi or other concerning lesions. Neurologically, the patient is awake and responsive and occasionally confused. No significant agitation., pupils are equal reactive to light around 3 mm in size. No nystagmus. No facial asymmetry. Positive cough and gag. Sensorimotor function cannot be assessed. No Babinski. No clonus. - Labs CBC & Chem 7: 09/15/23 05:20 09/15/23 05:20 Labs: Abnormal Lab Results - Last 24 Hours (Table) 09/14/23 09/14/23 09/14/23 Range/Units 08:23 11:05 11:47 MCV (80.0-100.0) fL MCH (25.0-35.0) pg ABG HCO3 28 H (21-25) mmol/L ABG Total CO2 29 H (19-24) mmol/L BUN (9-20) mg/dL Glucose (74-99) mg/dL POC Glucose (mg/dL) 286 H 314 H (70-110) mg/dL 09/14/23 09/14/23 09/15/23 Range/Units 16:29 19:57 00:05 MCV (80.0-100.0) fL MCH (25.0-35.0) pg ABG HCO3 (21-25) mmol/L ABG Total CO2 (19-24) mmol/L BUN (9-20) mg/dL Glucose (74-99) mg/dL POC Glucose (mg/dL) 203 H 231 H 179 H (70-110) mg/dL 09/15/23 09/15/23 09/15/23 Range/Units 04:17 05:20 05:20 MCV 78.5 L (80.0-100.0) fL MCH 24.9 L (25.0-35.0) pg ABG HCO3 (21-25) mmol/L ABG Total CO2 (19-24) mmol/L BUN 23 H (9-20) mg/dL Glucose 241 H (74-99) mg/dL POC Glucose (mg/dL) 249 H (70-110) mg/dL Microbiology - Last 24 Hours (Table) 09/12/23 11:20 Gram Stain - Final Sputum Sputum Culture - Final Assessment and Plan Plan: New onset seizures, witnessed, lasted for few minutes and the seizure spo ntaneously aborted. The patient started on IV Keppra in the emergency department. CAT scan of the brain shows no acute neurologic process. No clinical seizures over the past 24 hours or since intubation. The patient's EEG showed no active seizures. CTA of the brain showed no intracranial artery stenosis or aneurysmal dilatation or dissection. Repeat CAT scan of the brain was also negative. The patient remains intubated and mechanically ventilated on propofol. The patient also is on Keppra. Altered mentation, rule out encephalopathy post seizure versus postcardiac arrest. The patient was appropriate postextubation. However, last night, he developed an acute hypertensive reaction with encephalopathy. Rule out hypertensive encephalopathy. CT angiogram of the brain showed no acute vascular insult and the patient did not have any seizure activity. Based on that, blood pressure was controlled and his mental status gradually improving Acute hypertensive emergency, currently on Cleviprex drip running at 20 mg an hour. The patient was also started on oral medications. Asystole/cardiac arrest with a downtime a few minutes with return of spontaneous regulation post CPR Acute hypoxic respiratory failure secondary to above, the patient was extubated on 09/14/2023 and the patient is currently on 4 L of oxygen by nasal cannula Excessive respiratory secretions, rule out underlying pneumonia the patient was started on Zosyn and the patient was also given a scopolamine patch, improving Acute lactic acidosis secondary to above, improving History of SECOND MILLER aneurysm post coiling Obesity with a BMI of 32 Diabetes mellitus type 2 Hypertension Hyperlipidemia Plan Titrate Precedex to his level of agitation Continue Cleviprex at 20 mg an hour and titrated for systolic blood pressure of 1 40-1 60 Continue clonidine 0.2 mg twice a day, Lopressor 50 g twice a day, hydralazine 50 mg 3 times daily and the patient will be given a dose of Lasix and the blood pressure will be monitored. Patient is currently on 4 L O2 nasal cannula Continue IV Zosyn Continue scopolamine patch CT of the brain that was done yesterday showed no evidence of any vascular insult or stroke No ongoing clinical seizure activity Neurology consultation has been appreciated Hemodynamically stable NovoLog insulin for sliding scale coverage and blood sugar control Heparin subcu for DVT prophylaxis Will continue to follow. Condition is critical. Is a critical care evaluation that was done more than 30 minutes. Time with Patient: Greater than 30
[2023-09-15] MEDS: bisacodyL 10 MG SUPP RECTAL STA (15:00)
[2023-09-15 16:18] LABS: Glucose,Whole Blood 307 mg/dL (70-110)
[2023-09-15] MEDS: INSULIN ASPART (NovoLOG) 100 UNIT/ML VIAL SQ SCH (16:33)
--- NOTE | 2023-09-15 16:53 | P.PN ---
Subjective This is a 58 -[place] male with past medical history of multiple medical problems including history of seizure was not taken she followed by cardiac arrest with downtown possible 4 minutes or more. This happened on 09/10 when he came to the hospital.Patient status post CPR with return of spontaneous circulation. He is currently intubated on mechanical ventilation he Is also on antibiotics Zosyn for possible aspiration pneumonia. On IV Keppra 1000 twice a day Patient undergoing sedation holiday for possible weaning and extubation however patient is getting restless and agitated. Urine drug screen is positive for marijuana 09/14/2023 pt remains in the icu intubated and sedated [facility] pulmonary and critical care team following closely he is been evaluated for weaning trial remain on zosyn and iv keppra 09/15/2023 Patient status post extubation today History of lethargic and very weak and cannot contribute much to history. He had low-grade fever 100 today and might be tachypneic at 27 CBC and BMP is unremarkable Aspirin 325 mg added by neurologist today Objective - Vital Signs Vital signs: Vital Signs Temp 99.0 F 09/15/23 08:00 Pulse 64 09/15/23 11:53 Resp 18 09/15/23 11:53 BP 113/61 09/15/23 11:00 Pulse Ox 96 09/15/23 11:00 FiO2 30 09/15/23 09:00 Intake & Output 09/14/23 09/15/23 09/15/23 18:59 06:59 18:59 Intake Total 624.240 398.434 446.031 Output Total 1110 730 785 Balance -485.760 -331.566 -338.969 Weight 121.4 kg 121.3 kg Intake: IV 353 223 250 Normal Saline @ KVO 153 123 50 Piperacillin-Tazobactam 3 200 100 100 .375 gm In Sodium Chloride 0.9% 100 ml @ 25 mls/hr IVPB Q8HR [facility] Rx# :[id number] Potassium Chloride 10 meq 100 In Water For Injection 1 100ml.bag @ 100 mls/hr IVPB Q1H [facility] Rx#: [id number] Intake, IV Titration 271.240 175.434 196.031 Amount Clevidipine Butyrate 25 97.2 175.434 150.101 mg In Empty Bag 1 bag @ 1 MG/HR 2 mls/hr IV .Q24H [facility] Rx#:[id number] Dexmedetomidine/0.9% NaCl 174.040 (Pmx) 400 mcg In Empty Bag 1 bag @ 0.2 MCG/KG/HR 5.95 mls/hr IV .[id number] [facility] Rx#:[id number] Dexmedetomidine/0.9% NaCl 45.930 (Pmx) 400 mcg In Empty Bag 1 bag @ 0.2 MCG/KG/HR 6.07 mls/hr IV .[id number] [facility] Rx#:[id number] Output: Urine 1110 730 785 Other: Voiding Method Indwelling Catheter Indwelling Catheter # Bowel Movements 1 ABP, PAP, CO, CI - Last Documented Arterial Blood Pressure 142/52 - Exam -GENERAL: The patient is generally weak, mildly confused HEENT: Pupils are round and equally reacting to light. EOMI. No scleral icterus. No conjunctival pallor. Normocephalic, atraumatic. No pharyngeal erythema. No thyromegaly. CARDIOVASCULAR: S1 and S2 present. No murmurs, rubs, or gallops. PULMONARY: Chest is clear to auscultation, no wheezing , no crackles. ABDOMEN: Soft, nontender, nondistended, normoactive bowel sounds. No palpable organomegaly. MUSCULOSKELETAL: No joint swelling or deformity. EXTREMITIES: No cyanosis, clubbing, or pedal edema. NEUROLOGICAL: Gross neurological examination did not reveal any focal deficits. SKIN: No rashes. no petechiae. - Labs CBC & Chem 7: 09/15/23 05:20 09/15/23 05:20 Labs: Abnormal Lab Results - Last 24 Hours (Table) 09/14/23 09/14/23 09/15/23 Range/Units 16:29 19:57 00:05 MCV (80.0-100.0) fL MCH (25.0-35.0) pg BUN (9-20) mg/dL Glucose (74-99) mg/dL POC Glucose (mg/dL) 203 H 231 H 179 H (70-110) mg/dL 09/15/23 09/15/23 09/15/23 Range/Units 04:17 05:20 05:20 MCV 78.5 L (80.0-100.0) fL MCH 24.9 L (25.0-35.0) pg BUN 23 H (9-20) mg/dL Glucose 241 H (74-99) mg/dL POC Glucose (mg/dL) 249 H (70-110) mg/dL 09/15/23 Range/Units 08:21 MCV (80.0-100.0) fL MCH (25.0-35.0) pg BUN (9-20) mg/dL Glucose (74-99) mg/dL POC Glucose (mg/dL) 286 H (70-110) mg/dL Microbiology - Last 24 Hours (Table) 09/12/23 11:20 Gram Stain - Final Sputum Sputum Culture - Final Assessment and Plan Assessment: Seizure followed by cardiac arrest with downtown about 4 minutes or more with creatinine of spontaneous circulation after CPR Acute hypoxic respiratory failure requiring intubation and mechanical ventila tion. Status post extubation to Possible aspiration pneumonia and altered mental status secondary to seizure, cardiac arrest versus metabolic encephalopathy History of brain aneurysm status post colonic treatment Diabetes mellitus Hypertension Hyperlipidemia Obesity with BMI of 35.8 Substance abuse with marijuana Plan: Continue Keppra 1000 twice a day Continue Zosyn Aspirin is a started by neurologist Pulmonary/critical care consult with help with vent management Neurology consult Labs and medication were reviewed.. Continue same treatment. Continue with symptomatic treatment. Resume home medication. Monitor labs and vitals. DVT and GI prophylaxis. Further recommendations as per clinical course of the patient DVT prophylaxis: Subcutaneous heparin GI Prophylaxis: Pepcid Prognosis is guarded
--- NOTE | 2023-09-15 18:01 | P.PN ---
Subjective Progress Note Date: 09/15/23 SUBJECTIVE: Labs shows hemoglobin 13.2, creatinine 0.9, BP 156/51, heart rate 80 bpm PHYSICAL EXAMINATION Neck: Brisk carotid upstroke, no jugular venous distention. Lungs: Mild crackles audible, rhonchi Heart: Regular rate and rhythm, S1-S2, no S3, Abdomen: Soft nontender, Neuro: Confused. Detailed neuro exam was not performed. ASSESSMENT Altered mental state, metabolic encephalopathy, likely related to hypertensive emergency Severe concentric LVH Grand mal seizure Acute hypertensive emergency, controlled Acute hypoxic respiratory failure s/p extubation 09/24/2023 Excessive respiratory secretions Type 2 diabetes Hypertension-dyslipidemia Obesity Showed EF 50 to 55%, severe concentric LVH, PLAN Continue clevidipine, continue clonidine, hydralazine. Discontinue metoprolol Start Coreg 25 mg twice daily. Try weaning clonidine, consider reducing to 0.1 mg. Once off clevidipine, consider adding Procardia XL Consider adding losartan Jf Caldwell MD, FACC, RPVI Thank you for allowing [facility] to participate in this patient's care. Please contact us in case of any followup questions. Objective - Vital Signs Vital signs: Vital Signs Temp 99.0 F 09/15/23 16:00 Pulse 83 09/15/23 17:45 Resp 27 H 09/15/23 17:45 BP 140/66 09/15/23 17:00 Pulse Ox 94 L 09/15/23 17:45 FiO2 30 09/15/23 09:00 Intake & Output 09/14/23 09/15/23 09/15/23 18:59 06:59 18:59 Intake Total 624.240 559.387 1163.397 Output Total 0732 233 7204 Balance -485.760 -331.566 -780.603 Weight 121.4 kg 121.3 kg Intake: IV 353 223 410 Normal Saline @ KVO 153 123 110 Piperacillin-Tazobactam 3 200 100 200 .375 gm In Sodium Chloride 0.9% 100 ml @ 25 mls/hr IVPB Q8HR [facility] Rx# :[id number] Potassium Chloride 10 meq 100 In Water For Injection 1 100ml.bag @ 100 mls/hr IVPB Q1H [facility] Rx#: [id number] Intake, IV Titration 271.240 175.434 319.397 Amount Clevidipine Butyrate 25 97.2 175.434 273.467 mg In Empty Bag 1 bag @ 1 MG/HR 2 mls/hr IV .Q24H [facility] Rx#:[id number] Dexmedetomidine/0.9% NaCl 174.040 (Pmx) 400 mcg In Empty Bag 1 bag @ 0.2 MCG/KG/HR 5.95 mls/hr IV .[id number] [facility] Rx#:[id number] Dexmedetomidine/0.9% NaCl 45.930 (Pmx) 400 mcg In Empty Bag 1 bag @ 0.2 MCG/KG/HR 6.07 mls/hr IV .[id number] [facility] Rx#:[id number] Oral 500 Output: Urine 9729 722 0432 Other: Voiding Method Indwelling Catheter Indwelling Catheter Indwelling Catheter # Bowel Movements 1 ABP, PAP, CO, CI - Last Documented Arterial Blood Pressure 156/51 - Labs CBC & Chem 7: 09/15/23 05:20 09/15/23 05:20 Labs: Abnormal Lab Results - Last 24 Hours (Table) 09/14/23 09/15/23 09/15/23 Range/Units 19:57 00:05 04:17 MCV (80.0-100.0) fL MCH (25.0-35.0) pg BUN (9-20) mg/dL Glucose (74-99) mg/dL POC Glucose (mg/dL) 231 H 179 H 249 H (70-110) mg/dL 09/15/23 09/15/23 09/15/23 Range/Units 05:20 05:20 08:21 MCV 78.5 L (80.0-100.0) fL MCH 24.9 L (25.0-35.0) pg BUN 23 H (9-20) mg/dL Glucose 241 H (74-99) mg/dL POC Glucose (mg/dL) 286 H (70-110) mg/dL 09/15/23 Range/Units 16:17 MCV (80.0-100.0) fL MCH (25.0-35.0) pg BUN (9-20) mg/dL Glucose (74-99) mg/dL POC Glucose (mg/dL) 307 H (70-110) mg/dL
[2023-09-15] MEDS: carvediloL 12.5 MG TAB PO SCH (18:58)
[2023-09-15] MEDS: DOCUSATE 100 MG CAP PO SCH (19:46)
[2023-09-15 20:48] LABS: Glucose,Whole Blood 211 mg/dL (70-110)
[2023-09-16 03:25] LABS: Basophils % (A) 1 %; Eosinophils # (A) 0.3 k/uL (0-0.7); Eosinophils % (A) 5 %; HCT 34.9 % (39.0-53.0); HGB 11.6 gm/dL (13.0-17.5); Lymphocytes # (A) 1.7 k/uL (1.0-4.8); Lymphocytes % (A) 26 %; MCH 25.9 pg (25.0-35.0); MCHC 33.2 g/dL (31.0-37.0); MCV 77.9 fL (80.0-100.0); Mean Platelet Volume 8.7; Monocytes # (A) 0.3 k/uL (0-1.0); Monocytes % (A) 5 %; Neutrophils % (A) 62 %; Platelet Count 237 k/uL (150-450); RBC 4.48 m/uL (4.30-5.90); RDW 14.4 % (11.5-15.5); WBC 6.6 k/uL (3.8-10.6)
[2023-09-16 03:36] LABS: African American GFR (CKD) 87 (>60 ml/min/1.73 sqM); Anion Gap 7 mmol/L; Blood Urea Nitrogen 26 mg/dL (9-20); Calcium 8.3 mg/dL (8.4-10.2); Carbon Dioxide 24 mmol/L (22-30); Chloride 108 mmol/L (98-107); Glucose 268 mg/dL (74-99); Non-African American GFR(CKD) 75 (>60 ml/min/1.73 sqM); Potassium 3.3 mmol/L (3.5-5.1); Sodium 139 mmol/L (137-145)
[2023-09-16] MEDS ORDERED: Potassium Replacement Protocol 1 EACH MISC MISCELLANE PRN (03:51)
[2023-09-16] MEDS: POTASSIUM CHLORIDE 20 MEQ in WATER FOR INJECTION 1 100ML.BAG IVPB SCH (04:01)
[2023-09-16 06:44] LABS: Glucose,Whole Blood 239 mg/dL (70-110)
--- NOTE | 2023-09-16 06:49 | XR ---
EXAMINATION TYPE: XR chest 1V portable DATE OF EXAM: 09/16/2023 COMPARISON: 09/15/2023 HISTORY: Pneumonia TECHNIQUE: Single frontal view of the chest is obtained. FINDINGS: No change in the diffuse mild interstitial prominence and prominent cardiac silhouette. Fi ndings most consistent with mild CHF. The infiltrate in the left lung base has cleared in the interval. There is no pleural effusion or pneumothorax. The osseous structures are intact. There is a left jugular central venous catheter the tip of which i s in the SVC/RA junction. IMPRESSION: 1. Clearing of the retrocardiac infiltrate/opacity. 2. Prominent cardiac silhouette and interstitium possibly indicating mild CHF.
[2023-09-16] MEDS: ASPIRIN 325 MG TAB PO SCH (08:10)
--- NOTE | 2023-09-16 09:35 | P.PN ---
Subjective Progress Note Date: 09/15/23 Patient was seen for follow-up. Patient's daughter was also present. Patient apparently had acute neurological deficits noted this morning, when he was noted to be agitated, restless, left-sided weakness, confusion. Patient also had unequal pupil, with the left side 2 mm, right side 5 mm. His NIH stroke scale was reported as 5. Stroke code was initiated. Patient underwent CT head, which revealed no acute process. I was informed about it at 4:18 AM this morning. Recommended to initiate stroke code. CT head was done, which revealed no acute intracranial process. CTA of head and neck revealed limited evaluation of the intracranial vasculature due to phase of contrast. No evidence of vessel occlusion in the bilateral ICA, vertebral arteries, bilateral A1, P1 or M1 segments. CTA of the neck was normal. Nursing staff discussed with Dr. Contreras, and patient was considered not a candidate for tPA. I recommended patient to be given aspirin 324 mg stat. This morning I came to see the patient, and patient is reclining in his bed. Patient mentions that he was not taking any aspirin in the past. All symptoms seems to have resolved. Patient is alert and awake. Objective - Vital Signs Vital signs: Vital Signs Temp 97.6 F 09/15/23 12:00 Pulse 74 09/15/23 13:45 Resp 27 H 09/15/23 13:00 BP 130/73 09/15/23 13:00 Pulse Ox 96 09/15/23 13:30 FiO2 30 09/15/23 09:00 Intake & Output 09/14/23 09/15/23 09/15/23 18:59 06:59 18:59 Intake Total 624.240 398.434 488.197 Output Total 1110 730 785 Balance -485.760 -331.566 -296.803 Weight 121.4 kg 121.3 kg Intake: IV 353 223 250 Normal Saline @ KVO 153 123 50 Piperacillin-Tazobactam 3 200 100 100 .375 gm In Sodium Chloride 0.9% 100 ml @ 25 mls/hr IVPB Q8HR [facility] Rx# :[id number] Potassium Chloride 10 meq 100 In Water For Injection 1 100ml.bag @ 100 mls/hr IVPB Q1H [facility] Rx#: [id number] Intake, IV Titration 271.240 175.434 238.197 Amount Clevidipine Butyrate 25 97.2 175.434 192.267 mg In Empty Bag 1 bag @ 1 MG/HR 2 mls/hr IV .Q24H [facility] Rx#:[id number] Dexmedetomidine/0.9% NaCl 174.040 (Pmx) 400 mcg In Empty Bag 1 bag @ 0.2 MCG/KG/HR 5.95 mls/hr IV .[id number] [facility] Rx#:[id number] Dexmedetomidine/0.9% NaCl 45.930 (Pmx) 400 mcg In Empty Bag 1 bag @ 0.2 MCG/KG/HR 6.07 mls/hr IV .[id number] [facility] Rx#:[id number] Output: Urine 1110 730 785 Other: Voiding Method Indwelling Catheter Indwelling Catheter # Bowel Movements 1 ABP, PAP, CO, CI - Last Documented Arterial Blood Pressure 158/67 - Exam Patient is alert and awake. Speech and language functions are normal. Patient can name and repeat very well. No aphasia or dysarthria. He is speaking with low volume, slightly husky voice. On cranial examination pupils are equal, round and reactive to light, visual francis are full on confrontation, with no neglect on double simultaneous stimulation. Extraocular muscles are intact with no nystagmus. Face is symmetric, tongue protrudes to the midline. No evidence of tongue bite soto. Palatal elevation is normal. Hearing normal. Shoulder shrug normal. On muscle strength testing there is no pronator drift and the strength is normal in both arms distally and proximally. In the lower limbs hip flexion is 2-3 whereas ankle dorsiflexion 5 bilaterally. Sensory to touch is equal with no neglect on double simultaneous stimulation. No ataxia for [id number] testing bilaterally. Cannot check in the lower limbs because of weakness. - Labs CBC & Chem 7: 09/16/23 03:05 09/16/23 03:05 Labs: Abnormal Lab Results - Last 24 Hours (Table) 09/14/23 09/14/23 09/15/23 Range/Units 16:29 19:57 00:05 MCV (80.0-100.0) fL MCH (25.0-35.0) pg BUN (9-20) mg/dL Glucose (74-99) mg/dL POC Glucose (mg/dL) 203 H 231 H 179 H (70-110) mg/dL 09/15/23 09/15/23 09/15/23 Range/Units 04:17 05:20 05:20 MCV 78.5 L (80.0-100.0) fL MCH 24.9 L (25.0-35.0) pg BUN 23 H (9-20) mg/dL Glucose 241 H (74-99) mg/dL POC Glucose (mg/dL) 249 H (70-110) mg/dL 09/15/23 Range/Units 08:21 MCV (80.0-100.0) fL MCH (25.0-35.0) pg BUN (9-20) mg/dL Glucose (74-99) mg/dL POC Glucose (mg/dL) 286 H (70-110) mg/dL Microbiology - Last 24 Hours (Table) 09/12/23 11:20 Gram Stain - Final Sputum Sputum Culture - Final Assessment and Plan Assessment: * Possible TIA manifesting with unequal pupil, visual hallucinations, mild left-sided weakness with NIH stroke scale of 5. CTA of head and neck and CT head were unremarkable. All symptoms have resolved. Current NIH stroke scale is 0. * Status post seizure with fall from a standing position, followed by cardiac arrest. According to patient's daughter, the downtime was 4 minutes, although the EMS flowsheet mentions 10 minutes of downtime. * Status postextubation. Patient is doing remarkably better, as per examination above. * History of cerebral aneurysm, status post endovascular coiling in 2004. 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 Patient off seizure medication for at least a year. * Ventilator dependent respiratory failure, on mechanical ventilation, status postextubation 09/14/2023 * Possible aspiration pneumonia, chest x-ray showing left lower lobe infiltrate * Lactic acidosis, secondary to seizure * Diabetes * Hypertension * Hyperlipidemia * Obesity * Marijuana use Plan: * Patient had a possible TIA, as symptoms have resolved. Patient was not taking any aspirin at home. Patient started on aspirin 325 mg daily. * Repeat CTA of head and neck revealed no significant stenosis. * Patient cannot have MRI because of presence of endovascular coiling. * Patient given loading dose of Keppra 1500 mg in the ER and maintained on Keppra 1000 mg twice daily. * EEG was abnormal due to background slowing of moderate to severe degree. This is suggestive of generalized cerebral dysfunction as can be seen with toxic metabolic encephalopathy related to diffuse structural brain abnormality. Clinical correlation is recommended. No epileptiform activity was seen. * CTA of head and neck revealed no evidence of dissection of the cervical internal carotid arteries or vertebral arteries or any evidence of significant stenosis at the carotid bifurcations. No evidence of intracranial high-grade stenosis or intracranial aneurysm. Hypoplastic right A1 segment. Aneurysmal clip in the anterior communicating artery limits evaluation. * 2D echo was technically difficult study. Severe left ventricular hypertrophy with left ventricular systolic function with EF 50 to 55%. Left atrium mildly increased in volume. * Cardiology is on board for evaluation of cardiac arrest and abnormal 2D echo. * Hemoglobin A1c 9.9. Recommend optimize control of diabetes to target A1c <7.0 * Check fasting lipid panel. * Neurologically we are treating for seizure disorder with Jessica. Regarding cardiac arrest may or may not be related to the seizure. Patient may need further EP studies, particularly because of abnormal 2D echo with severe LVH. * Patient started on Zosyn for left lower lobe infiltrate. * DVT prophylaxis: Heparin 5000 units subcu every 8 hours. Patient also on SCDs. * Telemetry monitoring.
[2023-09-16 09:54] LABS: Chol/HDL Ratio 6.41 Ratio; LDL Cholesterol,Calculated 116.2 mg/dL (0.0-131.0)
[2023-09-16] MEDS: QUEtiapine 50 MG TAB PO SCH (11:39)
[2023-09-16 11:40] LABS: Glucose,Whole Blood 255 mg/dL (70-110)
--- NOTE | 2023-09-16 12:07 | P.PN ---
Subjective Progress Note Date: 09/16/23 This is a 58-year-old male patient was brought in to the emergency department following a cardiac arrest. The patient was in the court house and he was noted to have an acute seizure, tonic-clonic in nature that lasted for around 2 to 3 minutes, during which, the patient had stool and urinary incontinence. The patient dropped and hit the back of his head and went unconscious. Subsequently, he was found unconscious and the fire department arrived to the scene and the patient was having agonal breathing and apparently was in asystole. The patient was given CPR for total of 3 minutes and he regained spontaneous circulation. His breathing was still agonal and he was being bagged on the way to the emergency department. In the ED, the patient was intubated immediately. The patient was placed on a mechanical ventilator. The postintubation chest x-ray showed right upper lobe atelectatic changes and ET tube was repositioned. The patient also had cardiomegaly and increased pulm vascular markings bilaterally. CAT scan of the head was done in addition to the CT scan of the cervical spine. The patient was found to have no acute intracranial process. There was some subcutaneous edema near the skull vertex without evidence of any fracture. There was encephalomalacia involving the frontal lobe related to previous surgery given the metallic density that was found in the suprasellar space. Patient had no evidence of any cervical fracture. No evidence of any hemorrhage or mass effect on the warren-white junction was well-differentiated. A metallic clip was seen as mentioned. The upper part of the lung showed bilateral airspace disease consistent with pulmonary edema. I arrived to evaluate this patient in the emergency department. He was placed on propofol and is running at 55 mcg of volume psych: Mechanical ventilation. He was having abdominal bleeding and he was quite tac hypneic. I switched him to pressure control mode and currently is on a pressure control of 25 with a PEEP of 5 and FiO2 of 100% in the rate of 20. Triple-lumen catheter was established in his left IJ. The post line insertion chest x-ray shows no evidence of any complications. No evidence of any pneumothorax. The patient remained hemodynamically stable. No further seizure activity has been noted. He was given IV Keppra in the emergency department and a total of 1.5 g of IV Keppra piggyback was given. No fever. No neck stiffness. WBC count is 16.8 with a hemoglobin of 15.9 and a platelet count of 454. BUN is at 15 with a creatinine of 1.07. Electrolytes are normal. Blood sugars at 325. As for the rest of the labs, the urine drug screen is positive for marijuana, negative for alcohol. Lactic acid level was at 6.1. AST is 580, ALT is 589 with a normal bilirubin and normal alkaline phosphatase. For set of troponin is at 0.024. He was given a dose of Lasix in the emergency department. Upon further discussion with the family, the patient has had a remote history of DIRECTOR LOAN aneurysm coiling. No reported seizure activity at least recently and the patient has been taking no antiepileptic medication. The patient has hypertension hyperlipidemia and diabetes mellitus maintained on oral medications. No further history is available at this point in time. No history of any cardiac disease. On today's evaluation of 09/11/2023, the patient is, comfortable, sedated with propofol which is running at 35 mcg/kg/min. The patient remains intubated on mechanical ventilator. He is on a pressure control mode of mechanical ventilation with a rate of 20 and a pressure control of 25 cm of water and affect has been dropped down to 50% with a PEEP of 5. The patient had a blood gas today that showed a pH of 7.63 with a pCO2 of 24 and a pO2 of 35. This is in a vegetative change and will be done accordingly. Chest x-ray shows improvement in the right upper lobe and atelectasis in the pulmonary vascular congestion. Orotracheal tube is in good location. He is afebrile. He is hemodynamically stable. In fact, he was hypertensive overnight and he was started on clevidipine drip and this was ultimately discontinued as the patient's blood pressure normalized. The patient is going to undergo a neurowork-up including a CTA of his brain and an EEG today. Echocardiogram is a lso to be done today. proBNP level was elevated at 2800. Labs from today showed a WBC count 11.5, hemoglobin 15.5 and a platelet count of 333. Sodium is at 137, potassium is at 3.3, BUN is 18 with a creatinine of 1.1. LFTs are improving with an AST of 294 and an ALT of 366. Blood sugars at 227 and the patient remains on insulin sliding scale coverage. IV fluids are currently at KVO. Producing adequate amount of urine output. Lactic acid level has dropped down to 1.6. Neurology has been consulted. On today's evaluation of 07/12/2024, the patient remains intubated on mechanical ventilator. The patient is sedated with propofol running at 45 mcg/kg/min. No seizure activity has been noted. Remains hemodynamically stable. On the mechanical ventilator, he is on pressure control mode at a rate of 14, pressure control of 20, FiO2 40% with a PEEP of 5. Chest x-ray shows no acute abn ormalities.The blood gas showed a pH of 7.49 with a pCO2 of 39 and pO2 of 169. Further workup was done for another CAT scan of the brain that was performed yesterday that showed no acute process. CT angiogram of the brain was also done that showed no significant evidence of dissection of the cervical internal carotid arteries or vertebral arteries. No evidence of any high-grade intracranial stenosis. 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 EEG showed slowing consistent with encephalopathy. No seizure activity has been noted. Meanwhile, the patient also had an echocardiogram that showed left- ventricular ejection fraction of 50 to 55%. There was severe LVH. No significant valvular abnormalities. He is currently afebrile. Hemodynamically stable on no pressors. The patient's blood pressure is under better control. The patient has a BUN of 21 with a creatinine of 1.2. White cell count is 7 with a hemoglobin 12.7 and a platelet count of 291. Remains on Keppra. Clevidipine drip has been discontinued. On today's evaluation of 07/13/2024, the patient is being seen for a follow-up. Remains intubated on mechanical ventilator. Sedation holiday was given to this patient yesterday. He failed as the patient was getting restless and agitated hypertensive and he developed excessive amount of respiratory secretions to the point where the sedation holiday had to be discontinued. Currently, he is back on propofol which is running at 45 mcg/kg/min. Respiratory secretions are still copious. The patient was started on IV Zosyn. Sputum culture was sent. The patient was also started on scopolamine patch. He is arousable and is withdrawing to painful stimulation while being on propofol at 45 mcg. No seizure activity has been noted. He is on assist-control mode with rate of 14, pressure control of 20, PEEP of 5 and FiO2 of 40%. The patient's IV fluids are currently at KVO. The patient is on vital high-protein for enteral titration which is running at 35 cc an hour. Meanwhile,The blood work from today shows a WBC count of 6.8, hemoglobin 12.2 and platelet count of 255. Blood gas from today showed a pH of 7.5 with a pCO2 43 pO2 122. BUN is 23 with a creatinine of 1.26 and a sodium levels at 139 with a potassium of 3.7. Blood sugars up to 51. He is afebrile. No neck stiffness. No other significant events overnight. On today's evaluation of 09/14/2023, the patient is being seen for a follow-up. The patient is currently on Precedex which is running 1.1 mcg/kg/h. The patient is calm and comfortable and arousable. We were unable to wean him yesterday as the patient has excessive amount of respiratory secretions and he was becoming quite tachypneic. The trial was aborted. The same trial will be done today. Note that the patient is currently off propofol and was utilizing only Precedex. Patient is also on Cleviprex which is running at 4 mg an hour for blood pr essure control. On today's evaluation, he grimaces to painful stimulation occasionally he opens up his eyes spontaneously. He is currently on pressure control mode of mechanical ventilation at a rate of 14, a pressure control of 15 cm of water with a FiO2 of 40% and a PEEP of 5. Chest x-ray shows atelectatic change in the left lung baseOtherwise orotracheal tube is in a good location. No significant airspace disease. The blood gas showed a pH of 7.44 with a pCO2 of 44 and pO2 of 100, BUN is at 19 with a creatinine of 1.09 and sodium level is 142, bicarb is at 28, WBC count is at 8 with a hemoglobin 12.6 and a platelet count of 233. The patient receiving enteral feeding for nutritional support and the patient is sleeping vital high-protein at the rate of 35 cc an hour. The patient is afebrile. Has no secretions or use of no microbial growth and the patient is currently on IV Zosyn. Hemodynamically stable on no pressors. Receiving IV fluids with normal saline at a rate of 50 cc an hour. Remains on IV Keppra. On today's evaluation of 07/15/2024, I am seeing the patient for a follow-up. The patient was extubated yesterday without any major difficulties. He was immediately placed on a BiPAP and subsequently was placed on nasal cannula. However, earlier last night, the patient became acutely hypertensive, he was having hallucinations, he was becoming more restless and he was also confused. Systolic blood pressure was as high as 210 along with his underlying mental s tatus changes, the patient did not unequal pupil 2 mm on the left and 5 mm on the right pupil. Based on that, the patient was given a CT angiogram of the brain that showed no acute abnormalities and there was no vascular insult or stroke. He was managed with Cleviprex drip which is currently running at 20 mg an hour. He was also started on Precedex to control his agitation and the patient is currently on Precedex at 0.4 mcg/kg/h. To effectively control his blood pressure, I added clonidine hydralazine and Lopressor. The patient was having sinus tachycardia and after given 5 mg of IV Lopressor, his heart rate improved. Currently is on Lopressor 50 mg twice daily, clonidine point 2 mg tw ice a day and hydralazine 50 mg 3 times daily. He will be given a dose of Lasix 40 mg IV push x 1. He was taken off the BiPAP and currently is on 40 deflection by nasal cannula. IV fluids are currently at KVO. Less agitated. Able to communicate at this point in time. Neurologic exam is nonfocal. No seizure activity has been noted. Sodium level from today is at 139 with a potassium level of 3.8, BUN is 23 with a creatinine of 0.9. The risk of 7.9 with a hemoglobin 13.2. On 09/16/2023, patient is being seen for a follow-up. The patient remains encephalopathic and confused. He responds to questions. He is following commands. At times, he gets restless and agitated. Based on that, because of his ongoing agitation, he was maintained on Precedex which is running at 0.6 mcg/kg/h. Neurologic exam is nonfocal. No seizure activity has been noted. Neck is not stiff. He has no fever. Suspect a component of hypoxic encephalopathy because of his prolonged stroke and cardiac arrest. Meanwhile, the patient remains on Cleviprex for blood pressure management. He is running at 5 mg an hour. He is currently on Coreg 25 mg twice a day, clonidine point 2 mg twice a day and hydralazine and the dose was adjusted to 100 mg 3 times daily. Blood pressure control is improved. He is currently on 2 L of oxygen by nasal cannula. He remains on IV Zosyn. His blood work from today showsA white cell count of 6.6 with a hemoglobin 11.6 and a platelet count of 237. BUN is 26 with a creatinine of 1 and a sodium levels at 139. Potassium level is at 3.3. IV fluids are currently at KVO. He is stable to tolerate oral intake and oral medication. He remains on IV Keppra. Objective - Vital Signs Vital signs: Vital Signs Temp 98.5 F 09/16/23 00:00 Pulse 61 09/16/23 07:00 Resp 22 09/16/23 07:00 BP 130/71 09/16/23 07:00 Pulse Ox 94 L 09/16/23 07:00 FiO2 30 09/16/23 03:59 Intake & Output 09/15/23 09/16/23 09/16/23 18:59 06:59 18:59 Intake Total 3799.652 0188.427 46.633 Output Total 2060 685 90 Balance -770.603 608.427 -43.367 Weight 120.7 kg Intake: IV 420 420 10 Normal Saline @ KVO 120 120 10 Piperacillin-Tazobactam 3 200 100 .375 gm In Sodium Chloride 0.9% 100 ml @ 25 mls/hr IVPB Q8HR [facility] Rx# :[id number] Potassium Chloride 10 meq 100 In Water For Injection 1 100ml.bag @ 100 mls/hr IVPB Q1H [facility] Rx#: [id number] Potassium Chloride 20 meq 200 In Water For Injection 1 100ml.bag @ 50 mls/hr IVPB Q2H [facility] Rx#: [id number] Intake, IV Titration 369.397 373.427 36.633 Amount Clevidipine Butyrate 25 323.467 222.033 36.633 mg In Empty Bag 1 bag @ 1 MG/HR 2 mls/hr IV .Q24H [facility] Rx#:[id number] Dexmedetomidine/0.9% NaCl 45.930 151.394 (Pmx) 400 mcg In Empty Bag 1 bag @ 0.2 MCG/KG/HR 6.07 mls/hr IV .[id number] [facility] Rx#:[id number] Oral 500 500 Output: Urine 2060 685 90 Other: Voiding Method Indwelling Catheter Indwelling Catheter # Bowel Movements 1 ABP, PAP, CO, CI - Last Documented Arterial Blood Pressure 129/53 - Exam General appearance the patient is calm comfortable, no acute distress, extubated yet the patient is a bit confused and occasionally restless. Currently is on Precedex. No focal neurological deficits. The patient is currently on 2 L of oxygen by nasal cannula. Head exam was generally normal. There was no scleral icterus or corneal arcus. Mucous membranes were moist. Neck was supple and without jugular venous distension, thyromegaly, or carotid bruits. Carotids were easily palpable bilaterally. There was no adenopathy. Lungs were clear to auscultation and percussion, and with normal diaphragmatic excursion. No wheezes or rales were noted. Cardiac exam revealed the PMI to be normally situated and sized. The rhythm was regular and no extrasystoles were noted during several minutes of auscultation. The first and second heart sounds were normal and physiologic splitting of the second heart sound was noted. There were no murmurs, rubs, clicks, or gallops. Abdominal exam revealed normal bowel sounds. The abdomen was soft, non-tender, and without masses, organomegaly, or appreciable enlargement of the abdominal aorta. Examination of the extremities revealed easily palpable radial, femoral and pedal pulses. There was no cyanosis, clubbing or edema. Examination of the skin revealed no evidence of significant rashes, suspicious appearing nevi or other concerning lesions. Neurologically, the patient is awake and responsive and occasionally confused. No significant agitation., pupils are equal reactive to light around 3 mm in size. No nystagmus. No facial asymmetry. Positive cough and gag. Sensorimotor function cannot be assessed. No Babinski. No clonus. - Labs CBC & Chem 7: 09/16/23 03:05 09/16/23 03:05 Labs: Abnormal Lab Results - Last 24 Hours (Table) 09/15/23 09/15/23 09/15/23 Range/Units 08:21 16:17 20:47 Hgb (13.0-17.5) gm/dL Hct (39.0-53.0) % MCV (80.0-100.0) fL Potassium (3.5-5.1) mmol/L Chloride (98-107) mmol/L BUN (9-20) mg/dL Glucose (74-99) mg/dL POC Glucose (mg/dL) 286 H 307 H 211 H (70-110) mg/dL Calcium (8.4-10.2) mg/dL 09/16/23 09/16/23 09/16/23 Range/Units 03:05 03:05 06:40 Hgb 11.6 L (13.0-17.5) gm/dL Hct 34.9 L (39.0-53.0) % MCV 77.9 L (80.0-100.0) fL Potassium 3.3 L (3.5-5.1) mmol/L Chloride 108 H (98-107) mmol/L BUN 26 H (9-20) mg/dL Glucose 268 H (74-99) mg/dL POC Glucose (mg/dL) 239 H (70-110) mg/dL Calcium 8.3 L (8.4-10.2) mg/dL Assessment and Plan Plan: Ongoing encephalopathy, could be hypoxic based on a prolonged seizure and the patient is postcardiac arrest. He is having episodes of agitation. He is currently on Precedex. Note that he has no focal neurological deficits. No ongoing seizure activity. He is able to answer questions and follow commands. He gets agitated at times. New onset seizures, witnessed, lasted for few minutes and the seizure spon taneously aborted. The patient started on IV Keppra in the emergency department. CAT scan of the brain shows no acute neurologic process. No clinical seizures over the past 24 hours or since intubation. The patient's EEG showed no active seizures. CTA of the brain showed no intracranial artery stenosis or aneurysmal dilatation or dissection. Repeat CAT scan of the brain was also negative. Acute hypertensive emergency, currently on Cleviprex drip running at 4 mg an hour. The patient was also started on oral medications. Asystole/cardiac arrest with a downtime a few minutes with return of spontaneous regulation post CPR Acute hypoxic respiratory failure secondary to above, the patient was extubated on 09/14/2023 and the patient is currently on 2 L O2 nasal cannula Excessive respiratory secretions, rule out underlying pneumonia the patient was started on Zosyn and the patient was also given a scopolamine patch, improving Acute lactic acidosis secondary to above, improving History of DIRECTOR LOAN aneurysm post coiling Obesity with a BMI of 32 Diabetes mellitus type 2 Hypertension Hyperlipidemia Plan Titrate Precedex to his level of agitation, currently on 0.4 mcg/kg/h Continue Cleviprex at 4 mg an hour Continue Coreg 25 mg p.o. twice daily, clonidine 0.2 mg twice a day, Lopressor 50 g twice a day, hydralazine 100 mg 3 times daily and the patient will be given a dose of Lasix and the blood pressure will be monitored. Wean off the Cleviprex drip Patient is currently on 2 L O2 nasal cannula Continue IV Zosyn Continue scopolamine patch CT of the brain that was done showed no evidence of any vascular insult or stroke No ongoing clinical seizure activity Neurology consultation has been appreciated Hemodynamically stable NovoLog insulin for sliding scale coverage and blood sugar control Heparin subcu for DVT prophylaxis Will continue to follow.
[2023-09-16] MEDS: POTASSIUM CHLORIDE 20 MEQ in WATER FOR INJECTION 1 100ML.BAG IVPB STA (13:02)
[2023-09-16] MEDS: amLODIPine 5 MG TAB PO SCH (13:09)
--- NOTE | 2023-09-16 14:55 | P.PN ---
Subjective Progress Note Date: 09/16/23 Progress note 05/16/2024 Seen and examined at bedside this a.m. Blood pressure 140/61, heart rate 64 bpm, labs shows hemoglobin 11.6, creatinine 1.08, BUN 26, potassium 3.3 SUBJECTIVE: Labs shows hemoglobin 13.2, creatinine 0.9, BP 156/51, heart rate 80 bpm PHYSICAL EXAMINATION Neck: Brisk carotid upstroke, no jugular venous distention. Lungs: Mild crackles audible, rhonchi Heart: Regular rate and rhythm, S1-S2, no S3, Abdomen: Soft nontender, Neuro: Confused. Detailed neuro exam was not performed. ASSESSMENT Altered mental state, metabolic encephalopathy, likely related to hypertensive emergency Severe concentric LVH Grand mal seizure Acute hypertensive emergency, controlled Acute hypoxic respiratory failure s/p extubation 09/24/2023 Excessive respiratory secretions Type 2 diabetes Hypertension-dyslipidemia Obesity Showed EF 50 to 55%, severe concentric LVH, PLAN Discontinue clevidipine. Discontinue clonidine Continue Coreg 25 mg twice daily. Start amlodipine 5 mg twice daily Start HCTZ 25 mg daily Next step will be to add Aldactone 25 mg daily and ARB Jf Caldwell MD, FAC, RPVI Thank you for allowing [facility] to participate in this patient's care. Please contact us in case of any followup questions. Objective - Vital Signs Vital signs: Vital Signs Temp 98.7 F 09/16/23 12:00 Pulse 64 09/16/23 14:00 Resp 15 09/16/23 14:00 BP 124/74 09/16/23 09:00 Pulse Ox 93 L 09/16/23 13:00 FiO2 30 09/16/23 03:59 Intake & Output 09/15/23 09/16/23 09/16/23 18:59 06:59 18:59 Intake Total 9151.659 2233.427 560.413 Output Total 2060 685 430 Balance -770.603 608.427 130.413 Weight 120.7 kg Intake: IV 420 420 280 Normal Saline @ KVO 120 120 80 Piperacillin-Tazobactam 3 200 100 100 .375 gm In Sodium Chloride 0.9% 100 ml @ 25 mls/hr IVPB Q8HR [facility] Rx# :[id number] Potassium Chloride 10 meq 100 In Water For Injection 1 100ml.bag @ 100 mls/hr IVPB Q1H [facility] Rx#: [id number] Potassium Chloride 20 meq 200 100 In Water For Injection 1 100ml.bag @ 50 mls/hr IVPB Q2H [facility] Rx#: [id number] Intake, IV Titration 369.397 373.427 180.413 Amount Clevidipine Butyrate 25 323.467 222.033 88.099 mg In Empty Bag 1 bag @ 1 MG/HR 2 mls/hr IV .Q24H [facility] Rx#:[id number] Dexmedetomidine/0.9% NaCl 45.930 151.394 92.314 (Pmx) 400 mcg In Empty Bag 1 bag @ 0.2 MCG/KG/HR 6.07 mls/hr IV .[id number] [facility] Rx#:[id number] Oral 500 500 100 Output: Urine 2060 685 430 Other: Voiding Method Indwelling Catheter Indwelling Catheter Indwelling Catheter # Bowel Movements 1 ABP, PAP, CO, CI - Last Documented Arterial Blood Pressure 149/61 - Labs CBC & Chem 7: 09/16/23 03:05 09/16/23 12:05 Labs: Abnormal Lab Results - Last 24 Hours (Table) 09/15/23 09/15/23 09/16/23 Range/Units 16:17 20:47 03:05 Hgb (13.0-17.5) gm/dL Hct (39.0-53.0) % MCV (80.0-100.0) fL Potassium (3.5-5.1) mmol/L Chloride (98-107) mmol/L BUN (9-20) mg/dL Glucose (74-99) mg/dL POC Glucose (mg/dL) 307 H 211 H (70-110) mg/dL Calcium (8.4-10.2) mg/dL Triglycerides 225.00 H (0.00-149.00) mg/dL VLDL Cholesterol, Calc 45.00 H (5.00-40.00) mg/dL HDL Cholesterol 29.80 L (40.00-60.00) mg/dL 09/16/23 09/16/23 09/16/23 Range/Units 03:05 03:05 06:40 Hgb 11.6 L (13.0-17.5) gm/dL Hct 34.9 L (39.0-53.0) % MCV 77.9 L (80.0-100.0) fL Potassium 3.3 L (3.5-5.1) mmol/L Chloride 108 H (98-107) mmol/L BUN 26 H (9-20) mg/dL Glucose 268 H (74-99) mg/dL POC Glucose (mg/dL) 239 H (70-110) mg/dL Calcium 8.3 L (8.4-10.2) mg/dL Triglycerides (0.00-149.00) mg/dL VLDL Cholesterol, Calc (5.00-40.00) mg/dL HDL Cholesterol (40.00-60.00) mg/dL 09/16/23 Range/Units 11:38 Hgb (13.0-17.5) gm/dL Hct (39.0-53.0) % MCV (80.0-100.0) fL Potassium (3.5-5.1) mmol/L Chloride (98-107) mmol/L BUN (9-20) mg/dL Glucose (74-99) mg/dL POC Glucose (mg/dL) 255 H (70-110) mg/dL Calcium (8.4-10.2) mg/dL Triglycerides (0.00-149.00) mg/dL VLDL Cholesterol, Calc (5.00-40.00) mg/dL HDL Cholesterol (40.00-60.00) mg/dL
--- NOTE | 2023-09-16 16:04 | P.PN ---
Subjective This is a 58 -[place] male with past medical history of multiple medical problems including history of seizure was not taken she followed by cardiac arrest with downtown possible 4 minutes or more. This happened on 09/10 when he came to the hospital.Patient status post CPR with return of spontaneous circulation. He is currently intubated on mechanical ventilation he Is also on antibiotics Zosyn for possible aspiration pneumonia. On IV Keppra 1000 twice a day Patient undergoing sedation holiday for possible weaning and extubation however patient is getting restless and agitated. Urine drug screen is positive for marijuana 09/14/2023 pt remains in the icu intubated and sedated [facility] pulmonary and critical care team following closely he is been evaluated for weaning trial remain on zosyn and iv keppra 09/15/2023 Patient status post extubation today History of lethargic and very weak and cannot contribute much to history. He had low-grade fever 100 today and might be tachypneic at 27 CBC and BMP is unremarkable Aspirin 325 mg added by neurologist today 09/16/2023 Patient is awake and alert. Generally weak but he is asking when he would be discharged home. He still needs hospitalization and insulin the ICU and he is a greeable CC status post extubation yesterday Code ports. Today Continue with Precedex hyperlordosis Family at bedside and questions answered Case discussed with the neurology team Objective - Vital Signs Vital signs: Vital Signs Temp 98.7 F 09/16/23 12:00 Pulse 64 09/16/23 14:00 Resp 15 09/16/23 14:00 BP 124/74 09/16/23 09:00 Pulse Ox 93 L 09/16/23 13:00 FiO2 30 09/16/23 03:59 Intake & Output 09/15/23 09/16/23 09/16/23 18:59 06:59 18:59 Intake Total 6556.147 6970.427 568.911 Output Total 2060 685 430 Balance -770.603 608.427 138.911 Weight 120.7 kg Intake: IV 420 420 280 Normal Saline @ KVO 120 120 80 Piperacillin-Tazobactam 3 200 100 100 .375 gm In Sodium Chloride 0.9% 100 ml @ 25 mls/hr IVPB Q8HR [facility] Rx# :[id number] Potassium Chloride 10 meq 100 In Water For Injection 1 100ml.bag @ 100 mls/hr IVPB Q1H [facility] Rx#: [id number] Potassium Chloride 20 meq 200 100 In Water For Injection 1 100ml.bag @ 50 mls/hr IVPB Q2H [facility] Rx#: [id number] Intake, IV Titration 369.397 373.427 188.911 Amount Clevidipine Butyrate 25 323.467 222.033 88.099 mg In Empty Bag 1 bag @ 1 MG/HR 2 mls/hr IV .Q24H [facility] Rx#:[id number] Dexmedetomidine/0.9% NaCl 45.930 151.394 100.812 (Pmx) 400 mcg In Empty Bag 1 bag @ 0.2 MCG/KG/HR 6.07 mls/hr IV .[id number] [facility] Rx#:[id number] Oral 500 500 100 Output: Urine 2060 685 430 Other: Voiding Method Indwelling Catheter Indwelling Catheter Indwelling Catheter # Bowel Movements 1 ABP, PAP, CO, CI - Last Documented Arterial Blood Pressure 149/61 - Exam -GENERAL: The patient is generally weak, mildly confused HEENT: Pupils are round and equally reacting to light. EOMI. No scleral icterus. No conjunctival pallor. Normocephalic, atraumatic. No pharyngeal erythema. No thyromegaly. CARDIOVASCULAR: S1 and S2 present. No murmurs, rubs, or gallops. PULMONARY: Chest is clear to auscultation, no wheezing , no crackles. ABDOMEN: Soft, nontender, nondistended, normoactive bowel sounds. No palpable organomegaly. MUSCULOSKELETAL: No joint swelling or deformity. EXTREMITIES: No cyanosis, clubbing, or pedal edema. NEUROLOGICAL: Gross neurological examination did not reveal any focal deficits. SKIN: No rashes. no petechiae. - Labs CBC & Chem 7: 09/16/23 03:05 09/16/23 12:05 Labs: Abnormal Lab Results - Last 24 Hours (Table) 09/15/23 09/15/23 09/16/23 Range/Units 16:17 20:47 03:05 Hgb (13.0-17.5) gm/dL Hct (39.0-53.0) % MCV (80.0-100.0) fL Potassium (3.5-5.1) mmol/L Chloride (98-107) mmol/L BUN (9-20) mg/dL Glucose (74-99) mg/dL POC Glucose (mg/dL) 307 H 211 H (70-110) mg/dL Calcium (8.4-10.2) mg/dL Triglycerides 225.00 H (0.00-149.00) mg/dL VLDL Cholesterol, Calc 45.00 H (5.00-40.00) mg/dL HDL Cholesterol 29.80 L (40.00-60.00) mg/dL 09/16/23 09/16/23 09/16/23 Range/Units 03:05 03:05 06:40 Hgb 11.6 L (13.0-17.5) gm/dL Hct 34.9 L (39.0-53.0) % MCV 77.9 L (80.0-100.0) fL Potassium 3.3 L (3.5-5.1) mmol/L Chloride 108 H (98-107) mmol/L BUN 26 H (9-20) mg/dL Glucose 268 H (74-99) mg/dL POC Glucose (mg/dL) 239 H (70-110) mg/dL Calcium 8.3 L (8.4-10.2) mg/dL Triglycerides (0.00-149.00) mg/dL VLDL Cholesterol, Calc (5.00-40.00) mg/dL HDL Cholesterol (40.00-60.00) mg/dL 09/16/23 Range/Units 11:38 Hgb (13.0-17.5) gm/dL Hct (39.0-53.0) % MCV (80.0-100.0) fL Potassium (3.5-5.1) mmol/L Chloride (98-107) mmol/L BUN (9-20) mg/dL Glucose (74-99) mg/dL POC Glucose (mg/dL) 255 H (70-110) mg/dL Calcium (8.4-10.2) mg/dL Triglycerides (0.00-149.00) mg/dL VLDL Cholesterol, Calc (5.00-40.00) mg/dL HDL Cholesterol (40.00-60.00) mg/dL Assessment and Plan Assessment: Seizure followed by cardiac arrest with downtown about 4 minutes or more with creatinine of spontaneous circulation after CPR Acute hypoxic respiratory failure requiring intubation and mechanical ventilation. Status post extubation to/10 Possible aspiration pneumonia and altered mental status secondary to seizure, cardiac arrest versus metabolic encephalopathy History of brain aneurysm status post colonic treatment Diabetes mellitus Hypertension Hyperlipidemia Obesity with BMI of 35.8 Substance abuse with marijuana Plan: Continue Keppra 1000 twice a day Continue Zosyn Aspirin is a started by neurologist Pulmonary/critical care consult with help with vent management Neurology consult Labs and medication were reviewed.. Continue same treatment. Continue with symptomatic treatment. Resume home medication. Monitor labs and vitals. DVT and GI prophylaxis. Further recommendations as per clinical course of the patient DVT prophylaxis: Subcutaneous heparin GI Prophylaxis: Pepcid Prognosis is guarded
[2023-09-16] MEDS: hydroCHLOROthiazide 25 MG TAB PO SCH (16:09)
[2023-09-16 16:19] LABS: Glucose,Whole Blood 317 mg/dL (70-110)
[2023-09-16] MEDS: ATORVASTATIN 40 MG TAB PO SCH (20:26)
[2023-09-16 20:31] LABS: Glucose,Whole Blood 90 mg/dL (70-110)
--- NOTE | 2023-09-16 23:02 | P.PN ---
Subjective Progress Note Date: 09/16/23 09/16/2023: Patient was seen for a follow-up. Patient's daughter was also present. She mentions that patient is breathing good. Day before yesterday he was continuously repeating "what happened", almost every 30 minutes. Yesterday he was asking same question almost every other hour, and now today is further less frequent. No new focal symptoms. Patient is off Br[place], still on Precedex. 09/15/2023: Patient was seen for follow-up. Patient's daughter was also present. Patient apparently had acute neurological deficits noted this morning, when he was noted to be agitated, restless, left-sided weakness, confusion. Patient also had unequal pupil, with the left side 2 mm, right side 5 mm. His NIH stroke scale was reported as 5. Stroke code was initiated. Patient und erwent CT head, which revealed no acute process. I was informed about it at 4:18 AM this morning. Recommended to initiate stroke code. CT head was done, which revealed no acute intracranial process. CTA of head and neck revealed limited evaluation of the intracranial vasculature due to phase of contrast. No evidence of vessel occlusion in the bilateral ICA, vertebral arteries, bilateral A1, P1 or M1 segments. CTA of the neck was normal. Nursing staff discussed with Dr. Contreras, and patient was considered not a candidate for tPA. I recommended patient to be given aspirin 324 mg stat. This morning I came to see the patient, and patient is reclining in his bed. Patient mentions that he was not taking any aspirin in the past. All symptoms seems to have resolved. Patient is alert and awake. Objective - Vital Signs Vital signs: Vital Signs Temp 98.7 F 09/16/23 12:00 Pulse 64 09/16/23 14:00 Resp 15 09/16/23 14:00 BP 124/74 09/16/23 09:00 Pulse Ox 93 L 09/16/23 13:00 FiO2 30 09/16/23 03:59 Intake & Output 09/15/23 09/16/23 09/16/23 18:59 06:59 18:59 Intake Total 6463.523 0134.427 560.413 Output Total 2060 685 430 Balance -770.603 608.427 130.413 Weight 120.7 kg Intake: IV 420 420 280 Normal Saline @ KVO 120 120 80 Piperacillin-Tazobactam 3 200 100 100 .375 gm In Sodium Chloride 0.9% 100 ml @ 25 mls/hr IVPB Q8HR [facility] Rx# :[id number] Potassium Chloride 10 meq 100 In Water For Injection 1 100ml.bag @ 100 mls/hr IVPB Q1H [facility] Rx#: [id number] Potassium Chloride 20 meq 200 100 In Water For Injection 1 100ml.bag @ 50 mls/hr IVPB Q2H [facility] Rx#: [id number] Intake, IV Titration 369.397 373.427 180.413 Amount Clevidipine Butyrate 25 323.467 222.033 88.099 mg In Empty Bag 1 bag @ 1 MG/HR 2 mls/hr IV .Q24H [facility] Rx#:[id number] Dexmedetomidine/0.9% NaCl 45.930 151.394 92.314 (Pmx) 400 mcg In Empty Bag 1 bag @ 0.2 MCG/KG/HR 6.07 mls/hr IV .[id number] [facility] Rx#:[id number] Oral 500 500 100 Output: Urine 2060 685 430 Other: Voiding Method Indwelling Catheter Indwelling Catheter Indwelling Catheter # Bowel Movements 1 ABP, PAP, CO, CI - Last Documented Arterial Blood Pressure 149/61 - Exam Patient is alert and awake. Speech and language functions are normal. Patient can name and repeat very well. No aphasia or dysarthria. Patient's volume of speaking has improved. On cranial examination pupils are equal, round and reactive to light, visual francis are full on confrontation, with no neglect on double simultaneous stimulation. Extraocular muscles are intact with no nystagmus. Face is symmetric, tongue protrudes to the midline. No evidence of tongue bite soto. Palatal elevation is normal. Hearing normal. Shoulder shrug normal. On muscle strength testing there is no pronator drift and the strength is normal in both arms distally and proximally. In the lower limbs hip flexion is 2-3 whereas ankle dorsiflexion 5 bilaterally. Sensory to touch is equal with no neglect on double simultaneous stimulation. No ataxia for [id number] testing bilaterally. Cannot check in the lower limbs because of weakness. - Labs CBC & Chem 7: 09/16/23 03:05 09/16/23 12:05 Labs: Abnormal Lab Results - Last 24 Hours (Table) 09/15/23 09/15/23 09/16/23 Range/Units 16:17 20:47 03:05 Hgb (13.0-17.5) gm/dL Hct (39.0-53.0) % MCV (80.0-100.0) fL Potassium (3.5-5.1) mmol/L Chloride (98-107) mmol/L BUN (9-20) mg/dL Glucose (74-99) mg/dL POC Glucose (mg/dL) 307 H 211 H (70-110) mg/dL Calcium (8.4-10.2) mg/dL Triglycerides 225.00 H (0.00-149.00) mg/dL VLDL Cholesterol, Calc 45.00 H (5.00-40.00) mg/dL HDL Cholesterol 29.80 L (40.00-60.00) mg/dL 09/16/23 09/16/23 09/16/23 Range/Units 03:05 03:05 06:40 Hgb 11.6 L (13.0-17.5) gm/dL Hct 34.9 L (39.0-53.0) % MCV 77.9 L (80.0-100.0) fL Potassium 3.3 L (3.5-5.1) mmol/L Chloride 108 H (98-107) mmol/L BUN 26 H (9-20) mg/dL Glucose 268 H (74-99) mg/dL POC Glucose (mg/dL) 239 H (70-110) mg/dL Calcium 8.3 L (8.4-10.2) mg/dL Triglycerides (0.00-149.00) mg/dL VLDL Cholesterol, Calc (5.00-40.00) mg/dL HDL Cholesterol (40.00-60.00) mg/dL 09/16/23 Range/Units 11:38 Hgb (13.0-17.5) gm/dL Hct (39.0-53.0) % MCV (80.0-100.0) fL Potassium (3.5-5.1) mmol/L Chloride (98-107) mmol/L BUN (9-20) mg/dL Glucose (74-99) mg/dL POC Glucose (mg/dL) 255 H (70-110) mg/dL Calcium (8.4-10.2) mg/dL Triglycerides (0.00-149.00) mg/dL VLDL Cholesterol, Calc (5.00-40.00) mg/dL HDL Cholesterol (40.00-60.00) mg/dL Assessment and Plan Assessment: * Possible TIA manifesting with unequal pupil, visual hallucinations, mild left- sided weakness with NIH stroke scale of 5. CTA of head and neck and CT head were unremarkable. All symptoms have resolved. Current NIH stroke scale is 0. * Status post seizure with fall from a standing position, followed by cardiac arrest. According to patient's daughter, the downtime was 4 minutes, although the EMS flowsheet mentions 10 minutes of downtime. * Status postextubation. Patient is doing remarkably better, as per examination above. * History of cerebral aneurysm, status post endovascular coiling in 2004. 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 Patient off seizure medication for at least a year. * Ventilator dependent respiratory failure, on mechanical ventilation, status postextubation 09/14/2023 * Possible aspiration pneumonia, chest x-ray showing left lower lobe infiltrate * Lactic acidosis, secondary to seizure * Diabetes * Hypertension * Hyperlipidemia * Obesity * Marijuana use Plan: * Patient had a possible TIA, as symptoms have resolved. Patient was not taking any aspirin at home. Patient started on aspirin 325 mg daily. * Repeat CTA of head and neck revealed no significant stenosis. * Patient cannot have MRI because of presence of endovascular coiling. * Patient given loading dose of Keppra 1500 mg in the ER and maintained on Keppra 1000 mg twice daily. * EEG was abnormal due to background slowing of moderate to severe degree. This is suggestive of generalized cerebral dysfunction as can be seen with toxic metabolic encephalopathy related to diffuse structural brain abnormality. Clinical correlation is recommended. No epileptiform activity was seen. * CTA of head and neck revealed no evidence of dissection of the cervical internal carotid arteries or vertebral arteries or any evidence of significant stenosis at the carotid bifurcations. No evidence of intracranial high-grade stenosis or intracranial aneurysm. Hypoplastic right A1 segment. Aneurysmal clip in the anterior communicating artery limits evaluation. * 2D echo was technically difficult study. Severe left ventricular hypertrophy with left ventricular systolic function with EF 50 to 55%. Left atrium mildly increased in volume. * Cardiology is on board for evaluation of cardiac arrest and abnormal 2D echo. * Hemoglobin A1c 9.9. Recommend optimize control of diabetes to target A1c <7.0 * Fasting lipid panel with cholesterol 191, LDL 116, HDL 29 and triglycerides 225. Continue Lipitor 40 mg daily. * Neurologically we are treating for seizure disorder with Jessica. Regarding cardiac arrest may or may not be related to the seizure. Patient may need further EP studies, particularly because of abnormal 2D echo with severe LVH. We will defer to cardiology. * Patient on Zosyn for left lower lobe infiltrate. * DVT prophylaxis: Heparin 5000 units subcu every 8 hours. Patient also on SCDs. * Telemetry monitoring. * Dr. Toñito Fields Will resume neurology service from the morning.
[2023-09-17 05:07] LABS: Basophils # (A) 0.1 k/uL (0-0.2); Basophils % (A) 1 %; Eosinophils # (A) 0.4 k/uL (0-0.7); Eosinophils % (A) 7 %; HCT 37.1 % (39.0-53.0); Lymphocytes # (A) 2.2 k/uL (1.0-4.8); Lymphocytes % (A) 36 %; MCH 25.1 pg (25.0-35.0); MCHC 32.4 g/dL (31.0-37.0); MCV 77.7 fL (80.0-100.0); Monocytes # (A) 0.3 k/uL (0-1.0); Monocytes % (A) 5 %; Neutrophils # (A) 3.2 k/uL (1.3-7.7); Neutrophils % (A) 51 %; Platelet Count 267 k/uL (150-450); RBC 4.78 m/uL (4.30-5.90); RDW 14.4 % (11.5-15.5); WBC 6.2 k/uL (3.8-10.6)
[2023-09-17 05:25] LABS: African American GFR (CKD) 84 (>60 ml/min/1.73 sqM); Anion Gap 4 mmol/L; Blood Urea Nitrogen 24 mg/dL (9-20); Calcium 8.5 mg/dL (8.4-10.2); Carbon Dioxide 26 mmol/L (22-30); Chloride 110 mmol/L (98-107); Glucose 172 mg/dL (74-99); Non-African American GFR(CKD) 72 (>60 ml/min/1.73 sqM); Potassium 3.3 mmol/L (3.5-5.1); Sodium 140 mmol/L (137-145)
[2023-09-17 06:42] LABS: Glucose,Whole Blood 156 mg/dL (70-110)
[2023-09-17] MEDS: POTASSIUM CHLORIDE ER 20 MEQ TAB.ER PO SCH (06:47)
--- NOTE | 2023-09-17 08:50 | P.PN ---
Subjective Progress Note Date: 09/17/23 Principal diagnosis: seizure/fall This is a 58-year-old male who originally presented to the emergency department [place] and a fall in which he hit the back of his head and became unconscious. He was in cardiac arrest per EMS for over 10 minutes. Patient was intubated on admission and was recently extubated on Sunday. Patient has had a full neurologic workup. He is back on his seizure medication. Patient seen this morning sitting in bedside chair. He is alert and oriented and asking when he would be able to go home. He is tolerating diet. Objective - Vital Signs Vital signs: Vital Signs Temp 99.1 F 09/17/23 08:00 Pulse 69 09/17/23 08:13 Resp 15 09/17/23 08:00 BP 128/93 09/17/23 08:00 Pulse Ox 95 09/17/23 08:03 FiO2 30 09/17/23 00:46 Intake & Output 09/16/23 09/17/23 09/17/23 18:59 06:59 18:59 Intake Total 812.250 670 Output Total 615 1245 Balance 197.250 -575 Weight 123.1 kg Intake: IV 520 120 Normal Saline @ KVO 120 120 Piperacillin-Tazobactam 3 200 .375 gm In Sodium Chloride 0.9% 100 ml @ 25 mls/hr IVPB Q8HR [facility] Rx# :[id number] Potassium Chloride 20 meq 200 In Water For Injection 1 100ml.bag @ 50 mls/hr IVPB Q2H [facility] Rx#: [id number] Intake, IV Titration 192.250 Amount Clevidipine Butyrate 25 88.099 mg In Empty Bag 1 bag @ 1 MG/HR 2 mls/hr IV .Q24H [facility] Rx#:[id number] Dexmedetomidine/0.9% NaCl 104.151 (Pmx) 400 mcg In Empty Bag 1 bag @ 0.2 MCG/KG/HR 6.07 mls/hr IV .[id number] [facility] Rx#:[id number] Oral 100 550 Output: Urine 615 1245 Other: Voiding Method Indwelling Catheter Indwelling Catheter # Bowel Movements 1 ABP, PAP, CO, CI - Last Documented Arterial Blood Pressure 151/61 - Constitutional General appearance: Present: cooperative, no acute distress - EENT Eyes: Present: PERRLA - Neck Neck: Present: normal ROM. Absent: lymphadenopathy, rigidity - Respiratory Respiratory: bilateral: diminished - Cardiovascular Rhythm: regular Heart sounds: normal: S1, S2 - Gastrointestinal General gastrointestinal: Present: soft. Absent: tenderness - Integumentary Integumentary: Present: normal, normal turgor - Psychiatric Psychiatric: Present: A&O x's 3 - Labs CBC & Chem 7: 09/17/23 04:45 09/17/23 04:45 Labs: Abnormal Lab Results - Last 24 Hours (Table) 09/16/23 09/16/23 09/16/23 Range/Units 03:05 11:38 16:16 Hgb (13.0-17.5) gm/dL Hct (39.0-53.0) % MCV (80.0-100.0) fL Potassium (3.5-5.1) mmol/L Chloride (98-107) mmol/L BUN (9-20) mg/dL Glucose (74-99) mg/dL POC Glucose (mg/dL) 255 H 317 H (70-110) mg/dL Triglycerides 225.00 H (0.00-149.00) mg/dL VLDL Cholesterol, Calc 45.00 H (5.00-40.00) mg/dL HDL Cholesterol 29.80 L (40.00-60.00) mg/dL 09/17/23 09/17/23 09/17/23 Range/Units 04:45 04:45 06:30 Hgb 12.0 L (13.0-17.5) gm/dL Hct 37.1 L (39.0-53.0) % MCV 77.7 L (80.0-100.0) fL Potassium 3.3 L (3.5-5.1) mmol/L Chloride 110 H (98-107) mmol/L BUN 24 H (9-20) mg/dL Glucose 172 H (74-99) mg/dL POC Glucose (mg/dL) 156 H (70-110) mg/dL Triglycerides (0.00-149.00) mg/dL VLDL Cholesterol, Calc (5.00-40.00) mg/dL HDL Cholesterol (40.00-60.00) mg/dL Assessment and Plan (1) Cardiac arrest Current Visit: Yes Status: Acute Code(s): I46.9 - CARDIAC ARREST, CAUSE UNSPECIFIED SNOMED Code(s): 050395416 (2) Seizure Current Visit: Yes Status: Acute Code(s): R56.9 - UNSPECIFIED CONVULSIONS SNOMED Code(s): 80686364 (3) Diabetes mellitus Current Visit: Yes Status: Acute Code(s): E11.9 - TYPE 2 DIABETES MELLITUS WITHOUT COMPLICATIONS SNOMED Code(s): 48641347 (4) Hypertension Current Visit: Yes Status: Acute Code(s): I10 - ESSENTIAL (PRIMARY) HYPER TENSION SNOMED Code(s): 30572067 (5) Hyperlipidemia Current Visit: Yes Status: Acute Code(s): E78.5 - HYPERLIPIDEMIA, UNSPECIFIED SNOMED Code(s): 59571918 (6) Head injury Current Visit: Yes Status: Acute Code(s): S09.90XA - UNSPECIFIED INJURY OF HEAD, INITIAL ENCOUNTER SNOMED Code(s): 27872563 Plan: Check CBC and CMP in the morning Patient may be transferred out of the ICU if okay with consultants Patient seen and evaluated by nurse practitioner, physician in agreement with plan
[2023-09-17] MEDS: ASPIRIN 81 MG PO SCH (09:37)
--- NOTE | 2023-09-17 10:04 | PN ---
PROGRESS NOTE SUBJECTIVE: Andrea is a 58-year-old gentleman, who was admitted to the hospital with severe uncontrolled hypertension and seizure. This morning, he is feeling much better. He is on Norvasc 5 mg b.i.d., Coreg 25 b.i.d., Lipitor 40 daily, and blood pressure is well controlled. OBJECTIVE: GENERAL: Comfortable at rest. VITAL SIGNS: Stable. O2 saturation is 95% on room air. NECK: There is no jugular venous distention. Carotid upstroke is normal. There is no bruit. CHEST: Reveals good air entry bilaterally. HEART: Reveals first and second heart sounds and a systolic murmur at the apex. ABDOMEN: Soft. EXTREMITIES: Did not reveal any edema. LABORATORY DATA: Lab show a hemoglobin of 12, platelet count is 267, and creatinine is 1.1. ASSESSMENT: Severe uncontrolled hypertension. PLAN: He has left ventricular hypertrophy with normal LV function. Continue current medications. MMODL / IJN: [id number] /
[2023-09-17 11:03] VITALS: BMI 36.8
[2023-09-17 11:34] LABS: Glucose,Whole Blood 292 mg/dL (70-110)
--- NOTE | 2023-09-17 13:49 | P.PN ---
Subjective Progress Note Date: 09/17/23 Principal diagnosis: Cardiac arrest This is a 58-year-old male patient was brought in to the emergency department following a cardiac arrest. The patient was in the court house and he was noted to have an acute seizure, tonic-clonic in nature that lasted for around 2 to 3 minutes, during which, the patient had stool and urinary incontinence. The patient dropped and hit the back of his head and went unconscious. Subsequently, he was found unconscious and the fire department arrived to the scene and the patient was having agonal breathing and apparently was in asystole. The patient was given CPR for total of 3 minutes and he regained spontaneous circulation. His breathing was still agonal and he was being bagged on the way to the emergency department. In the ED, the patient was intubated immediately. The patient was placed on a mechanical ventilator. The posti ntubation chest x-ray showed right upper lobe atelectatic changes and ET tube was repositioned. The patient also had cardiomegaly and increased pulm vascular markings bilaterally. CAT scan of the head was done in addition to the CT scan of the cervical spine. The patient was found to have no acute intracranial process. There was some subcutaneous edema near the skull vertex without evidence of any fracture. There was encephalomalacia involving the frontal lobe related to previous surgery given the metallic density that was found in the suprasellar space. Patient had no evidence of any cervical fracture. No evidence of any hemorrhage or mass effect on the warren-white junction was well-d ifferentiated. A metallic clip was seen as mentioned. The upper part of the lung showed bilateral airspace disease consistent with pulmonary edema. I arrived to evaluate this patient in the emergency department. He was placed on propofol and is running at 55 mcg of volume psych: Mechanical ventilation. He was having abdominal bleeding and he was quite tachypneic. I switched him to pressure control mode and currently is on a pressure control of 25 with a PEEP of 5 and FiO2 of 100% in the rate of 20. Triple-lumen catheter was established in his left IJ. The post line insertion chest x-ray shows no evidence of any complications. No evidence of any pneumothorax. The patient remained h emodynamically stable. No further seizure activity has been noted. He was given IV Keppra in the emergency department and a total of 1.5 g of IV Keppra piggyback was given. No fever. No neck stiffness. WBC count is 16.8 with a hemoglobin of 15.9 and a platelet count of 454. BUN is at 15 with a creatinine of 1.07. Electrolytes are normal. Blood sugars at 325. As for the rest of the labs, the urine drug screen is positive for marijuana, negative for alcohol. Lactic acid level was at 6.1. AST is 580, ALT is 589 with a normal bilirubin and normal alkaline phosphatase. For set of troponin is at 0.024. He was given a dose of Lasix in the emergency department. Upon further discussion with the family, the patient has had a remote history of RECORDING ENGINEER aneurysm coiling. No reported seizure activity at least recently and the patient has been taking no antiepileptic medication. The patient has hypertension hyperlipidemia and diabetes mellitus maintained on oral medications. No further history is available at this point in time. No history of any cardiac disease. On today's evaluation of 07/15/2024, I am seeing the patient for a follow-up. The patient was extubated yesterday without any major difficulties. He was immediately placed on a BiPAP and subsequently was placed on nasal cannula. However, earlier last night, the patient became acutely hypertensive, he was having hallucinations, he was becoming more restless and he was also confused. Systolic blood pressure was as high as 210 along with his underlying mental status changes, the patient did not unequal pupil 2 mm on the left and 5 mm on the right pupil. Based on that, the patient was given a CT angiogram of the brain that showed no acute abnormalities and there was no vascular insult or stroke. He was managed with Cleviprex drip which is currently running at 20 mg an hour. He was also started on Precedex to control his agitation and the patient is currently on Precedex at 0.4 mcg/kg/h. To effectively control his blood pressure, I added clonidine hydralazine and Lopressor. The patient was having sinus tachycardia and after given 5 mg of IV Lopressor, his heart rate improved. Currently is on Lopressor 50 mg twice daily, clonidine point 2 mg twice a day and hydralazine 50 mg 3 times daily. He will be given a dose of Lasix 40 mg IV push x 1. He was taken off the BiPAP and currently is on 40 def lection by nasal cannula. IV fluids are currently at KVO. Less agitated. Able to communicate at this point in time. Neurologic exam is nonfocal. No seizure activity has been noted. Sodium level from today is at 139 with a potassium level of 3.8, BUN is 23 with a creatinine of 0.9. The risk of 7.9 with a hemoglobin 13.2. On 09/16/2023, patient is being seen for a follow-up. The patient remains encephalopathic and confused. He responds to questions. He is following commands. At times, he gets restless and agitated. Based on that, because of his ongoing agitation, he was maintained on Precedex which is running at 0.6 mcg/kg/h. Neurologic exam is nonfocal. No seizure activity has been noted. Neck is not stiff. He has no fever. Suspect a component of hypoxic encephalopathy because of his prolonged stroke and cardiac arrest. Meanwhile, the patient remains on Cleviprex for blood pressure management. He is running at 5 mg an hour. He is currently on Coreg 25 mg twice a day, clonidine point 2 mg twice a day and hydralazine and the dose was adjusted to 100 mg 3 times daily. Blood pressure control is improved. He is currently on 2 L of oxygen by nasal cannula. He remains on IV Zosyn. His blood work from today showsA white cell count of 6.6 with a hemoglobin 11.6 and a platelet count of 237. BUN is 26 with a creatinine of 1 and a sodium levels at 139. Potassium level is at 3.3. IV fluids are currently at KVO. He is stable to tolerate oral intake and oral medication. He remains on IV Keppra. Patient was noted today on 09/17/2023, remains in the ICU, patient is not in any distress, he is actually on room air. His encephalopathy has resolved, patient is seizures free, he seems to be very stable, he was extubated on 09/14. He was seen by his primary care physician today, and he plans to discharge him home tomorrow if cleared by all different consultants. Pulmonary arana patient is doing great asymptomatic. Labs today showed WBC count of 6.2 hemoglobin of 12, basic metabolic profile is normal, potassium is 3.3, BUN is 24 creatinine 1.12. Objective - Vital Signs Vital signs: Vital Signs Temp 99.1 F 09/17/23 08:00 Pulse 81 09/17/23 12:00 Resp 15 09/17/23 12:00 BP 141/75 09/17/23 12:00 Pulse Ox 96 09/17/23 12:00 FiO2 30 09/17/23 00:46 Intake & Output 09/16/23 09/17/23 09/17/23 18:59 06:59 18:59 Intake Total 812.250 670 350 Output Total 615 1245 0 Balance 197.250 -575 350 Weight 123.1 kg 123.1 kg Intake: IV 520 120 100 Normal Saline @ KVO 120 120 Piperacillin-Tazobactam 3 200 100 .375 gm In Sodium Chloride 0.9% 100 ml @ 25 mls/hr IVPB Q8HR [facility] Rx# :[id number] Potassium Chloride 20 meq 200 In Water For Injection 1 100ml.bag @ 50 mls/hr IVPB Q2H [facility] Rx#: [id number] Intake, IV Titration 192.250 Amount Clevidipine Butyrate 25 88.099 mg In Empty Bag 1 bag @ 1 MG/HR 2 mls/hr IV .Q24H [facility] Rx#:[id number] Dexmedetomidine/0.9% NaCl 104.151 (Pmx) 400 mcg In Empty Bag 1 bag @ 0.2 MCG/KG/HR 6.07 mls/hr IV .[id number] [facility] Rx#:[id number] Oral 100 550 250 Output: Urine 615 1245 0 Other: Voiding Method Indwelling Catheter Indwelling Catheter # Voids 1 # Bowel Movements 1 ABP, PAP, CO, CI - Last Documented Arterial Blood Pressure 151/61 - Exam General: The patient is awake and alert, in no distress, and does not appear acutely ill. Patient is on room air, Skin: Skin is warm and dry and no rashes or lesions are noted. Eye: Pupils are equal, round and reactive to light, extra-ocular movements are intact; there is normal conjunctiva bilaterally. Ears, nose, mouth and throat: There are moist mucous membranes and no oral lesions. Neck: The neck is supple, there is no tenderness or JVD. Cardiovascular: There is a regular rate and rhythm. No murmur, rub or gallop is appreciated. Respiratory: Minich breath sound bilaterally no crackles rhonchi or wheezes. Gastrointestinal: Soft, non-distended, non-tender abdomen without masses or organomegaly noted. There is no rebound or guarding present. Bowel sounds are unremarkable. Back: There is no tenderness to palpation in the midline. There is no obvious deformity. Musculoskeletal: Normal ROM, no tenderness, There is no pedal edema. There is no calf tenderness or swelling. No cords were appreciated. Neurological: CN II-XII intact, Cranial nerves III through XII are intact. There are no obvious motor or sensory deficits. Coordination appears grossly intact. Speech is normal. Psychiatric: Cooperative, appropriate mood & affect, normal judgment. - Labs CBC & Chem 7: 09/17/23 04:45 09/17/23 04:45 Labs: Abnormal Lab Results - Last 24 Hours (Table) 09/16/23 09/17/23 09/17/23 Range/Units 16:16 04:45 04:45 Hgb 12.0 L (13.0-17.5) gm/dL Hct 37.1 L (39.0-53.0) % MCV 77.7 L (80.0-100.0) fL Potassium 3.3 L (3.5-5.1) mmol/L Chloride 110 H (98-107) mmol/L BUN 24 H (9-20) mg/dL Glucose 172 H (74-99) mg/dL POC Glucose (mg/dL) 317 H (70-110) mg/dL 09/17/23 09/17/23 Range/Units 06:30 11:32 Hgb (13.0-17.5) gm/dL Hct (39.0-53.0) % MCV (80.0-100.0) fL Potassium (3.5-5.1) mmol/L Chloride (98-107) mmol/L BUN (9-20) mg/dL Glucose (74-99) mg/dL POC Glucose (mg/dL) 156 H 292 H (70-110) mg/dL Assessment and Plan Assessment: Impression: Status postcardiac arrest patient had asystole/cardiac arrest with downtime of few minutes and return of spontaneous circulation post CPR Acute hypoxic respiratory failure secondary to above Postcardiac arrest encephalopathy, resolved New onset seizure, resolved History of RECORDING ENGINEER aneurysm requiring coiling. Type 2 diabetes without complications Obesity with BMI of 32 Benign essential hypertension Dyslipidemia Left lower lobe pneumonia, resolved, possibly aspiration related Recommendations: Patient is off Precedex, off Cleviprex, Remains on Coreg, clonidine, Lopressor, hydralazine for blood pressure. Remains on Zosyn which could be discontinued upon discharge Continue present supportive care measures Continue sliding scale insulin Continue DVT prophylaxis/subcu heparin Continue incentive spirometry Will clear the patient for discharge in a.m. if cleared by other consultants including cardiology Time with Patient: Less than 30
[2023-09-17 16:44] LABS: Glucose,Whole Blood 291 mg/dL (70-110)
[2023-09-17] MEDS: ACETAMINOPHEN TAB 325 MG TAB PO PRN (20:40)
[2023-09-17 20:51] LABS: Glucose,Whole Blood 254 mg/dL (70-110)
[2023-09-18 04:13] LABS: HCT 38.4 % (39.0-53.0); HGB 12.2 gm/dL (13.0-17.5); MCH 24.8 pg (25.0-35.0); MCHC 31.8 g/dL (31.0-37.0); MCV 78.1 fL (80.0-100.0); Mean Platelet Volume 8.2; Platelet Count 275 k/uL (150-450); RBC 4.91 m/uL (4.30-5.90); RDW 14.4 % (11.5-15.5); WBC 5.7 k/uL (3.8-10.6)
[2023-09-18 04:26] LABS: ALT 36 U/L (4-49); AST 22 U/L (17-59); African American GFR (CKD) 84 (>60 ml/min/1.73 sqM); Albumin 3.3 g/dL (3.5-5.0); Alkaline Phosphatase 72 U/L (38-126); Anion Gap 5 mmol/L; Blood Urea Nitrogen 20 mg/dL (9-20); Calcium 8.6 mg/dL (8.4-10.2); Carbon Dioxide 24 mmol/L (22-30); Chloride 111 mmol/L (98-107); Glucose 236 mg/dL (74-99); Non-African American GFR(CKD) 73 (>60 ml/min/1.73 sqM); Potassium 3.7 mmol/L (3.5-5.1); Sodium 140 mmol/L (137-145); Total Bilirubin 0.4 mg/dL (0.2-1.3)
[2023-09-18] MEDS: POTASSIUM CHLORIDE ER 20 MEQ TAB.ER PO SCH (05:36)
[2023-09-18 06:41] LABS: Glucose,Whole Blood 283 mg/dL (70-110)
--- NOTE | 2023-09-18 08:35 | P.DS ---
Providers Date of admission: 09/10/23 17:48 Attending physician: Cale Fairchild Consults: 09/10/23 17:45 Consult Physician Stat Consulting Provider: Mitesh Farris Consult Reason/Comments: Seizure Do you want consulting provider notified?: Yes Consult Physician Urgent Consulting Provider: Magaly Rivera Consult Reason/Comments: Critical care management Do you want consulting provider notified?: Yes Consult Physician Urgent Consulting Provider: [facility] Consult Reason/Comments: Cardiac arrest Do you want consulting provider notified?: Yes Primary care physician: Cale Fairchild - Discharge Diagnosis(es) (1) Cardiac arrest Current Visit: Yes Status: Acute (2) Seizure Current Visit: Yes Status: Acute (3) Diabetes mellitus Current Visit: Yes Status: Acute (4) Hypertension Current Visit: Yes Status: Acute (5) Hyperlipidemia Current Visit: Yes Status: Acute (6) Head injury Current Visit: Yes Status: Acute Hospital Course: This is a 58-year-old male who originally presented to the emergency department after a seizure at the court house and a fall in which she hit the back of his head and became unconscious. He was in cardiac arrest per EMS for over 10 mi nutes. Patient was intubated on admission and extubated on this past Sunday. Patient remains seizure-free and his encephalopathy has resolved. Patient has improved greatly and is now tolerating diet and ambulating in his room. He is alert and oriented. He is on room air. Labs are stable. Patient may be discharged if cleared by consultants. Will have neurology write for antiseizure medications. Patient seen and evaluated by physical therapy who is recommending patient go home with home care. Patient seen and evaluated by nurse practitioner, physician in agreement with plan Plan - Discharge Summary Discharge Rx Participant: Yes New Discharge Prescriptions: New carvediloL [Coreg*] 25 mg PO BID-W/MEALS #60 tab Atorvastatin [Lipitor] 40 mg PO HS #90 tab hydrALAZINE HCL [Apresoline] 100 mg PO TID #90 tab Aspirin 81 mg PO DAILY #30 tab hydroCHLOROthiazide [Hydrodiuril] 25 mg PO DAILY #30 tab Continue Pioglitazone [Actos] 15 mg PO DAILY Lovastatin [Mevacor] 20 mg PO W/SUPPER metFORMIN HCL 1,000 mg PO BID amLODIPine [Norvasc] 5 mg PO DAILY #60 tab Discontinued Losartan/Hydrochlorothiazide [Losartan-Hctz 100-25 mg Tab] 1 tab PO DAILY Discharge Medication List Lovastatin [Mevacor] 20 mg PO W/SUPPER 09/10/23 [History] Pioglitazone [Actos] 15 mg PO DAILY 09/10/23 [History] metFORMIN HCL 1,000 mg PO BID 09/10/23 [History] Aspirin 81 mg PO DAILY #30 tab 09/18/23 [Rx] Atorvastatin [Lipitor] 40 mg PO HS #90 tab 09/18/23 [Rx] amLODIPine [Norvasc] 5 mg PO DAILY #60 tab 09/18/23 [Rx] carvediloL [Coreg*] 25 mg PO BID-W/MEALS #60 tab 09/18/23 [Rx] hydrALAZINE HCL [Apresoline] 100 mg PO TID #90 tab 09/18/23 [Rx] hydroCHLOROthiazide [Hydrodiuril] 25 mg PO DAILY #30 tab 09/18/23 [Rx] Follow up Appointment(s)/Referral(s): [facility], [NON-STAFF] - 1 Week ([facility] will call you to arrange a visit) Cale Fairchild MD [Primary Care Provider] - 1 Week Discharge Disposition: HOME WITH HOME HEALTH SERVICES
[2023-09-18] MEDS: LOSARTAN 50 MG TAB PO SCH (08:58)
[2023-09-18 09:16] VITALS: BP 108/66; PULSE 72; RESP 20; TEMP 97.7
== END 2023-09-18 11:03 | disposition home health service (06) | DRG 100 ==
LOC: EC 15:55 → 2SICU 17:48
PROVIDERS: ADMIT Family Medicine; ATTEND Family Medicine
PROC: 5A1945Z Respiratory Ventilation, 24-96 Consecutive Hours (ICD-10-PCS; principal; 2023-09-10)
PROC: 0BH17EZ Insertion of Endotracheal Airway into Trachea, Via Natural or Artificial Opening (ICD-10-PCS; 2023-09-10)
PROC: 02HV33Z Insertion of Infusion Device into Superior Vena Cava, Percutaneous Approach (ICD-10-PCS; 2023-09-10)
PROC: 4A10X4Z Monitoring of Central Nervous Electrical Activity, External Approach (ICD-10-PCS; 2023-09-11)
PROC: 4A133B1 Monitoring of Arterial Pressure, Peripheral, Percutaneous Approach (ICD-10-PCS; 2023-09-12)
PROC: 4A133J1 Monitoring of Arterial Pulse, Peripheral, Percutaneous Approach (ICD-10-PCS; 2023-09-12)
PROC: 03HY32Z Insertion of Monitoring Device into Upper Artery, Percutaneous Approach (ICD-10-PCS; 2023-09-12)
DX: G40.909 Epilepsy, unspecified, not intractable, without status epilepticus (principal); G92.8 Other toxic encephalopathy; I46.9 Cardiac arrest, cause unspecified; J96.01 Acute respiratory failure with hypoxia; G93.41 Metabolic encephalopathy; J69.0 Pneumonitis due to inhalation of food and vomit; I46.8 Cardiac arrest due to other underlying condition; J98.11 Atelectasis; E87.20 Acidosis, unspecified; J81.1 Chronic pulmonary edema; I16.1 Hypertensive emergency; Z99.11 Dependence on respirator [ventilator] status; S09.90XA Unspecified injury of head, initial encounter; G93.89 Other specified disorders of brain; I11.0 Hypertensive heart disease with heart failure; I10 Essential (primary) hypertension; E66.9 Obesity, unspecified; Z68.32 Body mass index [BMI] 32.0-32.9, adult; E11.9 Type 2 diabetes mellitus without complications; E78.5 Hyperlipidemia, unspecified; I48.91 Unspecified atrial fibrillation; K11.5 Sialolithiasis; R32 Unspecified urinary incontinence; W19.XXXA Unspecified fall, initial encounter; Z79.899 Other long term (current) drug therapy; F12.10 Cannabis abuse, uncomplicated; G40.409 Other generalized epilepsy and epileptic syndromes, not intractable, without status epilepticus; R00.0 Tachycardia, unspecified; Z68.35 Body mass index [BMI] 35.0-35.9, adult; Z79.84 Long term (current) use of oral hypoglycemic drugs; R01.1 Cardiac murmur, unspecified
CPT/HCPCS: 36415; 36600; 70450; 70496; 70498; 71045; 72125; 72170; 80048; 80053; 80061; 80076; 80306; 80320; 82805; 83036; 83605; 83735; 83880; 84100; 84132; 84484; 85025; 85027; 85610; 85730; 86850; 86900; 86901; 87070; 87205; 93005; 93306; 94002; 94003; 94640; 94660; 95822; 96365; 96366; 96375; 96376; 99291

== ENCOUNTER 2023-11-19 11:32 | Day surgery (SDC) | payer MEDICARE ==
[2023-11-15 10:09] VITALS: BMI 35.9
[~2023-11-19 11:32] MED LIST: ALPRAZolam 0.25 MG TAB PO PRN; ALPRAZolam 0.5 MG TAB PO PRN; ASPIRIN 325 MG TAB PO ONE; NITROGLYCERIN SL TABS 0.4 MG TAB SUBLINGUAL PRN
[2023-11-19] MEDS: SODIUM CHLORIDE 0.9% 1,000 ML in EMPTY BAG 1 BAG IV SCH (11:56)
[2023-11-19 12:01] VITALS: RESP 18; TEMP 98.1
[2023-11-19 12:04] LABS: Glucose,Whole Blood 195 mg/dL (70-110)
[2023-11-19 12:21] LABS: Basophils # (A) 0.1 k/uL (0-0.2); Basophils % (A) 1 %; Eosinophils # (A) 0.2 k/uL (0-0.7); Eosinophils % (A) 3 %; HCT 40.5 % (39.0-53.0); Lymphocytes # (A) 2.1 k/uL (1.0-4.8); Lymphocytes % (A) 38 %; MCH 25.2 pg (25.0-35.0); MCHC 32.1 g/dL (31.0-37.0); MCV 78.7 fL (80.0-100.0); Mean Platelet Volume 8.4; Monocytes # (A) 0.3 k/uL (0-1.0); Monocytes % (A) 6 %; Neutrophils # (A) 2.8 k/uL (1.3-7.7); Neutrophils % (A) 50 %; Platelet Count 283 k/uL (150-450); RBC 5.14 m/uL (4.30-5.90); RDW 15.2 % (11.5-15.5); WBC 5.7 k/uL (3.8-10.6)
[2023-11-19 12:25] LABS: African American GFR (CKD) >90 (>60 ml/min/1.73 sqM); Anion Gap 7 mmol/L; Blood Urea Nitrogen 18 mg/dL (9-20); Calcium 9.2 mg/dL (8.4-10.2); Carbon Dioxide 27 mmol/L (22-30); Chloride 108 mmol/L (98-107); Glucose 176 mg/dL (74-99); Non-African American GFR(CKD) >90 (>60 ml/min/1.73 sqM); Potassium 3.9 mmol/L (3.5-5.1); Sodium 142 mmol/L (137-145)
[2023-11-19] MEDS ORDERED: fentaNYL (PF) 50 MCG/ML 2 ML AMP ONE (12:38)
[2023-11-19] MEDS ORDERED: VERAPAMIL 2.5 MG/ML 2 ML AMP ONE (12:38)
[2023-11-19] MEDS: MIDAZOLAM 2 MG/2 ML VIAL IVP ONE (13:00)
[2023-11-19] MEDS: LIDOCAINE 2% (PF) 20 MG/ML 5 ML VIAL SQ ONE (13:02)
[2023-11-19] MEDS: fentaNYL (PF) 50 MCG/ML 2 ML AMP IVP ONE (13:02)
[2023-11-19] MEDS: VERAPAMIL SYRINGE (5 MG/10 ML) INTRAARTER ONE (13:04)
[2023-11-19] MEDS: IOPAMIDOL-370 100ML BTL INJ ONE (13:13)
--- NOTE | 2023-11-19 13:17 | P.CARDCATH ---
Description of Procedure: PROCEDURES PERFORMED: Left heart catheterization, bilateral coronary angiography, ultrasound guided arterial access INDICATION: Syncope/ cardiac arrest CONSENT:I have discussed the risks, benefits and alternative therapies for the above-mentioned procedure and for both sedation/analgesia as well as necessary blood product administration, if indicated, as they pertain to this patient. The patient has indicated understanding and acceptance of the risks and procedures discussed. PROCEDURE: After the risks, benefits and alternatives of the above mentioned procedure explained in detail with the patient, informed consent was obtained. Patient was taken to the catheterization lab and prepped and draped in usual fashion. Ultrasound guidance was used to assess for arterial access. 1% lidocaine was used to anesthetize the right radial artery. A 6-Burmese sheath was placed in the right radial artery using modified Seldinger technique and ultrasound guidance. Left coronary angiography was performed with a 5-Burmese JL 3.5 catheter and right coronary angiography was performed with a 5-Burmese FR5 catheter in various views. A 5-Burmese FR5 catheter was inserted into the left ventricle and pressure measurements were obtained. The right radial sheath was removed and a TR band was placed with hemostasis achieved. The patient tolerated the procedure well. Patient was transported back to the post catheterization holding area in stable condition. Conscious Sedation: Patient was monitored under the direct supervision of myself for conscious sedation using Versed and fentanyl for a total duration of 13 minutes HEMODYNAMICS: Ao: 143/71 LV: 138/12, LVEDP 25 SELECTIVE CORONARY ARTERIOGRAPHY: LEFT MAIN: The left main is a large caliber vessel which bifurcates into the LAD and circumflex. There is no significant stenosis. LEFT ANTERIOR DESCENDING CORONARY ARTERY: LAD is a large caliber vessel which wraps around to the apex. There is no significant stenosis. LEFT CIRCUMFLEX CORONARY ARTERY: Left circumflex is a moderate caliber vessel without significant stenosis. RIGHT CORONARY ARTERY: The right coronary artery is a large caliber vessel which gives off a PDA and PLV branch and is the dominant vessel. There is no significant stenosis. FINAL IMPRESSION: 1. Normal coronary arteries as described above. 2. Elevated left sided filling pressures PLAN: 1. Aggressive risk factor modification per most recent ACC/AHA guidelines. 2. Follow-up in the office in 1-2 weeks.
[2023-11-19 16:51] VITALS: BP 158/74; PULSE 60
== END 2023-11-19 16:42 | disposition home or self-care (01) ==
LOC: CATHCVL 11:32
PROVIDERS: ATTEND Internal Medicine
DX: I25.10 Atherosclerotic heart disease of native coronary artery without angina pectoris (principal); I10 Essential (primary) hypertension; E78.5 Hyperlipidemia, unspecified; E11.9 Type 2 diabetes mellitus without complications; E66.9 Obesity, unspecified; F17.210 Nicotine dependence, cigarettes, uncomplicated; Z68.37 Body mass index [BMI] 37.0-37.9, adult; Z79.82 Long term (current) use of aspirin; Z79.84 Long term (current) use of oral hypoglycemic drugs; Z79.899 Other long term (current) drug therapy
CPT/HCPCS: 93458; 76937; 80048; 85025; C1769; C1894; J2250; J3010; J1644; Q9967; J2001